=== PATIENT | female | born 1965 | race Caucasian/White ===

== ENCOUNTER 2022-06-16 09:30 | Outpatient (RCR) | payer BC, SELFPAY ==
--- NOTE | 2022-06-05 19:09 | ONC.NURNOTE ---
Authorization: User: Angie Alfaro Rojeliodonggeneva Date: 03/16/22 12:36 Type: Eligibility Determination Note... Request received from [facility] for authorization of Durvalumab [id number]. [place] primary [place]. Per Chance Durvalumab has been approved from 03/12/2022 through 03/20/2023. Ref #[id number]
[2022-06-11 11:31] LABS: Basophils Absolute Auto 0.04 K/uL (0.00-0.30); Basophils Percent Auto 0.4 % (0.0-3.0); Eosinophils Absolute Auto 0.21 K/uL (0.00-0.50); Eosinophils Percent Auto 2.3 % (0.0-7.0); Hematocrit 46.9 % (33.0-51.0); Hemoglobin* 15.6 gm/dL (12.0-16.0); Immature Granulocytes Abs Auto 0.03 K/uL (0.00-0.30); Lymphocytes Absolute Auto 3.31 K/uL (0.90-2.90); Lymphocytes Percent Auto 36.7 % (20-44); Mean Corpuscular HGB Conc 33 gm/dL (32-36); Mean Corpuscular Hemoglobin 32 pg (26-34); Mean Corpuscular Volume 95 fL (80-100); Monocytes Percent Auto 7.1 % (0.0-11.0); Neutrophils Absolute Auto 4.78 K/uL (1.7-7.0); Neutrophils Percent Auto 53.2 % (42.0-72.0); Platelet Count* 266 K/uL (140-440); RDW Coefficient of Variation % 11.8 % (11.5-15.5); Red Blood Count 4.92 m/uL (4.00-5.20); White Blood Count* 9.01 K/uL (4.50-11.00)
[2022-06-11 11:37] LABS: Slide Review Reflex No
[2022-06-11 12:02] LABS: Chloride* 102 mmol/L (96-114)
[2022-06-11 12:03] LABS: Potassium* 3.9 mmol/L (3.6-5.1); Sodium* 136 mmol/L (135-149)
[2022-06-11 12:05] LABS: Alanine Aminotransferase* 38 U/L (4-35); Alkaline Phosphatase* 92 U/L (40-150); Aspartate Amino Transferase* 32 U/L (12-35); Bilirubin Total* 0.5 mg/dL (0.1-1.5); Blood Urea Nitrogen* 9 mg/dL (7-30); Carbon Dioxide* 26 mmol/L (20-32); Creatinine* 0.7 mg/dL (0.5-1.5); Est. Creatinine Clearance* 84.01; Estimated Glomerular Filt Rate 101 ml/min; Glucose* 255 mg/dL (60-115); Total Protein* 7.4 g/dL (6.0-8.3)
[2022-06-11 12:06] LABS: Calcium* 8.8 mg/dL (8.4-10.6)
[2022-06-16 09:42] VITALS: BP 124/87; PULSE 96; RESP 20; TEMP 35.8; O2SAT 97
[2022-06-16] MEDS: DURVALUMAB 1,500 MG, TUBING PRIMARY 1 EACH, In-line 0.2 micron filter set 1 EACH in 0.9... 280 MG IVPB (10:16)
== END 2022-06-21 23:59 | disposition home or self-care (01) ==
LOC: CCIC 09:30
PROVIDERS: Visit Provider Internal Medicine Medical Oncology
DX: Z51.11 Encounter for antineoplastic chemotherapy (principal); C34.91 Malignant neoplasm of unspecified part of right bronchus or lung
CPT/HCPCS: 36415; 36591; 80053; 84443; 85025; 96413; 99212; 99214; J7050; J9173

== ENCOUNTER 2022-06-22 09:03 | Outpatient (CLI) | payer BC, SELFPAY ==
--- NOTE | 2022-06-22 09:00 | CRLHL7_ITS ---
For Patients: As a result of the Century Cures Act, medical imaging exams and procedure reports are released immediately into your electronic medical record. You may view this report before your referring provider. If you have questions, please contact your health care provider. Indication: Follow-up lung cancer Technique: Postcontrast CT chest. 75 cc Isovue 370 intravenous contrast. Please note that all CT scans at this facility use dose modulation, iterative reconstruction, and/or weight-based dosing when appropriate to reduce radiation dose to as low as reasonably achievable. Comparison: 02/27/2022 Findings: Near-complete resolution previously noted ground-glass densities in the right lower lobe. A few residual densities remain. Bronchovascular fullness of the right lower lobe bronchovascular tree again noted. Stable upper limits normal mediastinal and right hilar lymph nodes. Post treatment changes to the anterior right lung. No pneumothorax or pleural effusion. Post pneumonectomy changes to the right posterior lateral ribcage. Underlying COPD/emphysema. No aortic dissection or pulmonary embolism. No pleural or pericardial effusion. Diffuse hepatic steatosis. No fracture. Stable benign-appearing density within the T6 vertebral body. Impression: Improved appearance of the right lower lobe compared to the prior study. Similar fullness of the right lower lobe bronchovascular tree and similar upper limits normal right hilar and mediastinal lymph nodes. Unchanged appearance of post treatment changes to the right anterior lung. Please note that all CT scans at this facility use dose modulation, iterative reconstruction, and/or weight-based dosing when appropriate to reduce radiation dose to as low as reasonably achievable. Dictated by Nael Solares MD @ 06/22/2022 10:25:07 AM (Electronically Signed)
== END 2022-06-22 09:04 | disposition home or self-care (01) ==
LOC: CT 09:04
PROVIDERS: Visit Provider Nurse Practitioner Family
DX: C34.91 Malignant neoplasm of unspecified part of right bronchus or lung (principal)
CPT/HCPCS: 71260; Q9967

== ENCOUNTER 2022-09-15 11:59 | Outpatient (RCR) | payer BC, SELFPAY ==
--- NOTE | 2022-06-22 16:40 | ONC.NURNOTE ---
Patient called office asking for CT results from today, these were given to patient by nursing per Rosey Silva. Ok to let her know that looks great. Professor Of Practice discussed follow up with [employer], and she notes that patient would be due for follow up in about three months. Patient is leaving for [facility] 09/22/2022, so appointment was made for 09/17/2022. Patient will have labs done prior to this appointment, per note in [employer] - insurance is only covering scans every 6 months, so will wait on imaging.
[2022-09-15 09:57] VITALS: BP 135/90; PULSE 99; RESP 16; TEMP 36.1; O2SAT 96
[2022-09-15 10:15] LABS: Basophils Absolute Auto 0.03 K/uL (0.00-0.30); Basophils Percent Auto 0.4 % (0.0-3.0); Eosinophils Absolute Auto 0.17 K/uL (0.00-0.50); Eosinophils Percent Auto 2.3 % (0.0-7.0); Hematocrit 44.7 % (33.0-51.0); Hemoglobin* 15.1 gm/dL (12.0-16.0); Immature Granulocytes Abs Auto 0.04 K/uL (0.00-0.30); Lymphocytes Percent Auto 39.9 % (20-44); Mean Corpuscular HGB Conc 34 gm/dL (32-36); Mean Corpuscular Hemoglobin 32 pg (26-34); Mean Corpuscular Volume 95 fL (80-100); Monocytes Percent Auto 8.3 % (0.0-11.0); Neutrophils Absolute Auto 3.65 K/uL (1.7-7.0); Neutrophils Percent Auto 48.6 % (42.0-72.0); Platelet Count* 236 K/uL (140-440); RDW Coefficient of Variation % 11.8 % (11.5-15.5); Red Blood Count 4.69 m/uL (4.00-5.20); White Blood Count* 7.51 K/uL (4.50-11.00)
[2022-09-15 10:25] LABS: Slide Review Reflex No
[2022-09-15 10:29] LABS: Albumin* 4.1 g/dL (3.3-5.0); Chloride* 101 mmol/L (96-114); Potassium* 4.1 mmol/L (3.6-5.1); Sodium* 135 mmol/L (135-149)
[2022-09-15 10:31] LABS: Bilirubin Total* 0.5 mg/dL (0.1-1.5); Carbon Dioxide* 24 mmol/L (20-32); Creatinine* 0.7 mg/dL (0.5-1.5); Estimated Glomerular Filt Rate 101 ml/min
[2022-09-15 10:32] LABS: Alanine Aminotransferase* 35 U/L (4-35); Alkaline Phosphatase* 93 U/L (40-150); Aspartate Amino Transferase* 39 U/L (12-35); Blood Urea Nitrogen* 9 mg/dL (7-30); Glucose* 226 mg/dL (60-115); Total Protein* 7.2 g/dL (6.0-8.3)
[2022-09-16 08:38] LABS: Calcium* 9.1 mg/dL (8.4-10.6)
== END 2022-12-19 23:59 | disposition home or self-care (01) ==
LOC: CCIC 11:59
PROVIDERS: Clinical Nurse Specialist; Visit Provider Internal Medicine Medical Oncology
DX: C34.91 Malignant neoplasm of unspecified part of right bronchus or lung (principal); E03.9 Hypothyroidism, unspecified; E83.51 Hypocalcemia; Z72.0 Tobacco use
CPT/HCPCS: 36415; 80053; 84443; 85025; 99211; 99212; 99214

== ENCOUNTER 2023-03-04 11:06 | Outpatient (CLI) | payer BC, SELFPAY ==
--- NOTE | 2023-03-04 11:00 | CRLHL7_ITS ---
For Patients: As a result of the Century Cures Act, medical imaging exams and procedure reports are released immediately into your electronic medical record. You may view this report before your referring provider. If you have questions, please contact your health care provider. Indication: RECURRENT ADENOCARCINOMA OF RIGHT LUNG Technique: Post contrast CT chest. 75 cc Isovue 370 intravenous contrast. Please note that all CT scans at this facility use dose modulation, iterative reconstruction, and/or weight-based dosing when appropriate to reduce radiation dose to as low as reasonably achievable. Comparison: 06/22/2022 Findings: Stable benign subcentimeter cyst is present within the left hepatic lobe. The gallbladder is absent. Fatty infiltration of the liver noted. The spleen is unremarkable. Normal adrenal glands. No upper abdominal adenopathy. Similar appearance of the thyroid bed. No residual abscess. Atherosclerotic disease. The breast tissue appears normal. No axillary adenopathy. Stable subcentimeter right hilar and mediastinal lymph nodes. No aortic dissection or pulmonary embolism. Postoperative changes to the right ribcage. Stable benign sclerotic focus within the mid thoracic spine. No suspicious osseous findings. Mild emphysematous changes. Stable appearance of the right perihilar lung parenchyma and curvilinear scarring extending to the right anterolateral pleura. Impression: Stable exam. No significant change since the prior study. No new findings. Please note that all CT scans at this facility use dose modulation, iterative reconstruction, and/or weight-based dosing when appropriate to reduce radiation dose to as low as reasonably achievable. Dictated by Nael Solares MD @ 03/05/2023 1:03:50 PM (Electronically Signed)
== END 2023-03-04 11:07 | disposition home or self-care (01) ==
LOC: CT 11:07
PROVIDERS: Visit Provider Clinical Nurse Specialist
DX: C34.91 Malignant neoplasm of unspecified part of right bronchus or lung (principal); Z72.0 Tobacco use
CPT/HCPCS: 71260; Q9967

== ENCOUNTER 2023-03-09 15:00 | Outpatient (RCR) | payer BC, SELFPAY ==
[2023-03-04] MEDS: ALTEPLASE 2 MG INJ IVF (11:03)
[2023-03-04 11:12] LABS: Basophils Absolute Auto 0.03 K/uL (0.00-0.30); Basophils Percent Auto 0.3 % (0.0-3.0); Eosinophils Absolute Auto 0.16 K/uL (0.00-0.50); Eosinophils Percent Auto 1.7 % (0.0-7.0); Hematocrit 51.1 % (33.0-51.0); Hemoglobin* 17.1 gm/dL (12.0-16.0); Immature Granulocytes Abs Auto 0.02 K/uL (0.00-0.30); Immature Granulocytes Pct Auto 0.2 %; Lymphocytes Absolute Auto 3.91 K/uL (0.90-2.90); Lymphocytes Percent Auto 41.4 % (20-44); Mean Corpuscular HGB Conc 34 gm/dL (32-36); Mean Corpuscular Hemoglobin 32 pg (26-34); Mean Corpuscular Volume 96 fL (80-100); Monocytes Percent Auto 7.2 % (0.0-11.0); Neutrophils Absolute Auto 4.64 K/uL (1.7-7.0); Neutrophils Percent Auto 49.2 % (42.0-72.0); Platelet Count* 299 K/uL (140-440); RDW Coefficient of Variation % 12.2 % (11.5-15.5); Red Blood Count 5.34 m/uL (4.00-5.20); White Blood Count* 9.44 K/uL (4.50-11.00)
[2023-03-04 11:15] LABS: Slide Review Reflex No
[2023-03-04 11:20] LABS: Albumin* 4.4 g/dL (3.3-5.0)
[2023-03-04 11:21] LABS: Chloride* 103 mmol/L (96-114); Potassium* 4.9 mmol/L (3.6-5.1); Sodium* 136 mmol/L (135-149)
[2023-03-04 11:23] LABS: Aspartate Amino Transferase* 27 U/L (12-35); Bilirubin Total* 0.8 mg/dL (0.1-1.5); Carbon Dioxide* 27 mmol/L (20-32); Creatinine* 0.7 mg/dL (0.5-1.5); Estimated Glomerular Filt Rate 101 ml/min
[2023-03-04 11:24] LABS: Alanine Aminotransferase* 29 U/L (4-35); Alkaline Phosphatase* 67 U/L (40-150); Blood Urea Nitrogen* 9 mg/dL (7-30); Calcium* 9.2 mg/dL (8.4-10.6); Glucose* 175 mg/dL (60-115)
== END 2023-08-23 23:59 | disposition home or self-care (01) ==
LOC: CCIC 15:00
PROVIDERS: Clinical Nurse Specialist; Visit Provider Internal Medicine Hematology & Oncology
DX: C34.91 Malignant neoplasm of unspecified part of right bronchus or lung (principal); C73 Malignant neoplasm of thyroid gland; E03.9 Hypothyroidism, unspecified; Z72.0 Tobacco use; Z63.8 Other specified problems related to primary support group
CPT/HCPCS: 36415; 80053; 84443; 85025; 96376; 99211; 99212; 99215; J2997

== ENCOUNTER 2023-12-30 11:30 | Outpatient (RCR) | payer BC, SELFPAY ==
--- NOTE | 2023-09-20 11:35 | ONC.NURNOTE ---
PET approved 09/03/23-10/18/23. #[id number].
--- NOTE | 2023-10-04 13:24 | PC.NURSE ---
Called pt today to check in. Caroline is doing well s/p lumpectomy. Caroline is meeting with a medical oncologist in [place] on of this week. She is apprehensive about being told she will need chemotherapy. RN listened and provided support. Caroline would like to follow-up with Dr. Otto per providers recommendations (November,), however pt won't be back to [place] until early December. RN states this is ok to see her then. Caroline would like her CT scan scheduled on 12/29/2023 and MD appt on 12/30/2023. RN noted that Dr. Otto's schedule is blocked in December as it is too far in advance. Will pencil pt in for an appt that day but will not call her to confirm. Pt will call [facility] in November, to schedule officially. Of note, CT scan is not yet scheduled.
--- NOTE | 2023-12-15 12:43 | ONC.NURNOTE ---
Patient called to cancel Feb CT Scan and Dr Otto follow up she is currently receiving chemotherapy in [place] and to travel to [place] during treatment is not going to work Caroline will schedule her CT Scan for Dec at the local oncology office rescheduled for February with Dr Clarita Velazquez has all her treatment records and medical consult notes to bring back to [place]
== END 2024-02-29 23:59 | disposition home or self-care (01) ==
LOC: CCIC 11:30
PROVIDERS: PCP Family Medicine; Visit Provider Internal Medicine Hematology & Oncology
DX: C50.912 Malignant neoplasm of unspecified site of left female breast (principal)
CPT/HCPCS: 99212; 99214; 99215

== ENCOUNTER 2024-03-28 09:09 | Outpatient (CLI) | payer BC, SELFPAY ==
--- OUTSIDE RECORDS SUMMARY | 2024-03-28 09:12 | XMS_ITS | Referral Summary ---
Author Name Unknown Organization [facility] Address [address] [place] [address] Care Team Providers Care Dredge Master Name Role Phone Sea Jha M.D. Primary Care P marcelinoder Source Comments Patient records contain information from all sites at [facility]. For routine questions regarding patient records, call [phone] during business hours, M-F 8:00 AM - 5:00 PM Central Time. Record requests for emergency care only can be directed to [phone] at any time.[facility] Encounters Date Type Department Care Team Description 03/15/2024 Clinical Communication Department of Family Medicine, [facility], in [place], [place] [address] [place] [phone] Sea Jha M.B.B.S., M.D. Med Question (Med increase milligrams) 03/15/2024 8:53 AM CDT - 03/15/2024 3:08 PM CDT Hospital Encounter Department of Radiation Oncology in [place], [place] [address] [place] [id number] Judy Aguilar M.D. Malignant Neoplasm Of Breast Female Left (HCC) (Primary Dx) 03/11/2024 2:02 PM CDT - 03/11/2024 6:06 PM CDT Emergency [facility] [address] [place] [phone] Abdominal Pain (Primary Dx) Discharge Disposition: Home or Self Care 03/03/2024 10:30 AM CDT Office Visit Department of Family Medicine, [facility], in [address] [phone] Sea Jha M.B.B.S., M.D. Diabetes Mellitus Type 2 Hyperglycemia (HCC) (Primary Dx); Hyperlipidemia Mixed; Hypothyroidism Acquired; Malignant Neoplasm Of Lung Middle Lobe Or Bronchus (HCC); Nicotine Dependence Cigarettes; Obesity Body Mass Index 30-39.9 Adult; Neuropathy Peripheral 03/01/2024 9:20 AM CDT - 03/01/2024 11:59 PM CDT Hospital Encounter Department of Laboratory Medicine in [address] [phone] Sea Jha M.B.B.S., M.D. Diabetes Mellitus Type 2 Hyperglycemia (HCC); Hyperlipidemia Mixed; Hypothyroidism Acquired Discharge Disposition: Home or Self Care 12/30/2023 Refill Department of Family Medicine, [facility], in [address] [phone] Tammy Medina M.D. Med Refill from Last 3 Months Allergies Active Allergy Reactions Criticality Noted Date Comments Oxycodone GI intolerance Low 10/12/2019 Nausea/vomiting Has tolerated hydromorphone Medications Medication Sig Dispensed Refills Start Date End Date Status acetaminophen (TYLENOL) 500 mg tablet Take 2 tablets (1,000 mg total) by mouth every 6 (six) hours as needed for pain. 100 tablet 11 09/17/20 22 Active flash glucose scanning reader (FreeStyle Veronika 14 Day Cassandra) miscIndications:D iabetes Mellitus Type 2 Hyperglycemia (HCC) USE WITH VERONIKA SENSOR 1 each 09/17/20 22 Active dulaglutide (Trulicity) 3 mg/0.5 mL injectionIndicati ons:Diabetes Mellitus Type 2 Hyperglycemia (HCC) Inject 0.75 mL (4.5 mg total) under the skin every 7 (seven) days. 6 mL 3 07/30/20 23 Active pravastatin (PRAVACHOL) 40 mg tabletIndications :Hyperlipidemia Mixed Take 1 tablet (40 mg total) by mouth daily. 90 tablet 3 09/01/20 23 Active flash glucose sensor (FREESTYLE VERONIKA) kitIndications:Di abetes Mellitus Type 2 Hyperglycemia (HCC) Change sensor every 14 days. 6 kit 3 11/24/19 24 Active levothyroxine (SYNTHROID, LEVOTHROID) 25 mcg tabletIndications :Hypothyroidism Acquired Take 25 mcg on Wednesday and Wednesday. 90 tablet 3 03/03/20 24 Active levothyroxine (SYNTHROID, LEVOTHROID) 150 mcg tabletIndications :Hypothyroidism Acquired Take levothyroxine 150 mcg Wednesday through Wednesday. 90 tablet 3 03/03/20 24 Active pregabalin (LYRICA) 25 mg capsuleIndication s:Neuropathy Peripheral Take 1 capsule (25 mg total) by mouth 2 (two) times a day. 30 capsule 2 03/03/20 24 Active pregabalin (LYRICA) 50 mg capsule Take 1 capsule (50 mg total) by mouth 2 (two) times a day. 60 capsule 11 03/15/20 24 025 Active levothyroxine (SYNTHROID, LEVOTHROID) 150 mcg tablet Take levothyroxine 150 mcg Wednesday through Wednesday. 90 tablet 3 04/01/20 23 024 Discontinued(Re order) levothyroxine (SYNTHROID, LEVOTHROID) 25 mcg tablet Take 25 mcg on Wednesday and Wednesday. 90 tablet 3 04/01/20 23 024 Discontinued(Re order) albuterol (Ventolin HFA) 90 mcg/actuation inhalerIndication s:Bronchitis Chronic (HCC) Inhale 2 puffs every 4 (four) hours as needed for wheezing or shortness of breath. 18 g 07/30/20 23 024 Discontinued(Th erapy completed) glimepiride (AMARYL) 4 mg tabletIndications :Diabetes Mellitus Type 2 Hyperglycemia (HCC) Take 1 tablet (4 mg total) by mouth daily. 90 tablet 3 09/01/20 23 024 Discontinued(Th erapy completed) gabapentin (NEURONTIN) 300 mg capsule Take 300 mg by mouth 3 (three) times a day. 024 Discontinued Active Problems Problem Noted Date Diagnosed Date Malignant Neoplasm Of Breast Female Left 024 Cancer Staging:Pathologic stage from 09/08/2023:Stage IB(pT1c, pN0(sn), cM0, G3, ER-, KS-, HER2-) - Unsigned Obesity Body Mass Index 30-39.9 Adult 02/24/2022 Lesion Eyelid 03/17/2021 Malignant Neoplasm Of Unspec ified Part Of Lung Laterality Unknown 03/11/2021 Cancer Staging:Clinical: Unsigned Pathologic stage from 03/16/2021: pT2, pN0, cM0 - Unsigned Hypothyroidism Acquired 04/09/2020 Malignant Neoplasm Of Lung Middle Lobe Or Bronch us 02/05/2020 Diabetes Mellitus Type 2 Hyperglycemia 9 Nicotine Dependence Cigarettes 04/11/2019 Hyperlipidemia Mixed 06/06/2012 Resolved Problems Problem Noted Date Diagnosed Date Resolved Date Thyroiditis Alice's 04/25/202110/23 Nodule Thyroid 04/24/2021 11/10/2021 Overview: Added automatically from request for surgery [id number] Pain Shoulder Left 04/16/2020 Pulmonary Nodule Computed To mography Indeterminate 10/12/2019 02/05/2020 Nodule Pulmonary 09/25/2019 02/05/2020 Overview: Added automatically from request for surgery [id number] Mass Adrenal 09/22/2019 04/09/2020 Overview: Added automatically from request for surgery [id number] Gastroesophageal Reflux Dise ase With Esophagitis 08/14/2019 08/14/2019 Nodule Pulmonary Solitary 08/14/2019 Overview: Per xray Jul 2019 / Right CT Chest Aug 17, 2019 suspicious nodule Right Depression Major Recurrent Mild 06/06/2012 08/14/2019 Overview: Major depressive disorder, recurrent episode, Mild Immunizations Name Administration Dates Next Due Influenza TIV (IM) 08/18/2013 Influenza, Seasonal, Injectable 08/18/2013 PCV13 08/22/2019 PPSV23(Discontinued) 04/09/2020 Tdap 05/12/2022, 2,02/11/2012, 008 influenza vaccine quad (FLUZONE/FLUARIX) (6 months and older)(PF) 09/10/2022,11/10/2021,08/14/2019, 017,09/25/2014 Social History Tobacco Use Types Packs/Day Years Used Date Smoking Tobacco: Every Day Cigarettes 0.5 41.3 Started: 11/30/1982 Smokeless Tobacco: Never Tobacco Cessation:Ready to Q uit: No; Counseling Given: Yes Alcohol Use Standard Drinks/Week Comments Not Currently 0 (1 standard drink = 0.6 oz pur e alcohol) Humiliation, Afraid, Rape, and Kick questionnair e Answer Date Recorded Within the last year, have y ou been afraid of your partner or ex-partner? No 11/10/2021 Within the last year, have y ou been humiliated or emotionally abused in other ways by your partner or ex-partner? No Within the last year, have y ou been kicked, hit, slapped, or otherwise physically hurt by your partner or ex-partner? No 11/10/2021 Within the last year, have y ou been raped or forced to have any kind of sexual activity by your partner or ex-partner? No 11/10/2021 Social Connection and Isolat ion Panel [NHANES] Answer Date Recorded In a typical week, how many times do you talk on the phone with family, friends, or neighbors? More than three times a week 11/10/2021 How often do you get togethe r with friends or relatives? Once a week 11/10/2021 How often do you attend chur or baptism services? More than 4 times per year 11/10/2021 Do you belong to any clubs o r organizations such as jainism groups, unions, fraternal or athletic groups, or school groups? Yes 11/10/2021 How often do you attend meet ings of the clubs or organizations you belong to? More than 4 times per year 11/10/2021 Are you , , di vorced, , never , or living with a partner? 11/10/2021 AUDIT-C Answer Date Recorded Q1: How often do you have a drink containing alc ohol? Never 11/10/2021 Average Number of Drinks Not on file 12/20/2 021 Frequency of Binge Drinking Not on file 10/23 Overall Financial Resource Strain (CARDIA) Answe r Date Recorded How hard is it for you to pa y for the very basics like food, housing, medical care, and heating? Not hard at all 11/10/2021 PHQ-2 Answer Date Recorded PHQ-2 Score 0 03/03/2024 [facility] - Occupational Stress Questionnaire Answer Date Recorded Do you feel stress - tense, restless, nervous, or anxious, or unable to sleep at night because your mind is troubled all the time - these days? Not at all 11/10/2021 Exercise Vital Sign Answer Date Recorde d On average, how many days pe r week do you engage in moderate to strenuous exercise (like a brisk walk)? 0 days 11/10/2021 On average, how many minutes do you engage in exercise at this level? 0 min 11/10/2021 Hunger Vital Sign Answer Date Recorded Within the past 12 months, y ou worried that your food would run out before you got the money to buy more. Never true 11/10/20 21 Within the past 12 months, t he food you bought just didn't last and you didn't have money to get more. Never true 11/10/2021 PRAPARE - Transportation Answer Date Re corded In the past 12 months, has l ack of transportation kept you from medical appointments or from getting medications? No 10/23 In the past 12 months, has l ack of transportation kept you from meetings, work, or from getting things needed for daily living? No 11/10/2021 Housing Stability Vital Sign Answer Thierry e Recorded In the last 12 months, was t here a time when you were not able to pay the mortgage or rent on time? No 11/10/2021 In the last 12 months, how many places have you lived? 1 11/10/2021 In the last 12 months, was t here a time when you did not have a steady place to sleep or slept in a fdc (including now)? No 11/10/2021 Nutrition Answer Date Recorded Nutrition: EVOO Fat Source No 11/10 On average, how many serving s of fruits and vegetables do you eat per day (serving size is equal to 1 cup or approximately the size of a tennis ball)? 2-3 11/10/2021 Dental Answer Date Recorded Dental: Regular Dentist No 11/25/19 Employment Answer Date Recorded Employment status Employed and actively working without restrictions 11/10/2021 Education Answer Date Recorded What is the highest level of school you have completed or the highest degree you have received? GED or equivalent Sex and Gender Information Value Date Recorded Sex Assigned at Female 11/06/2021 3:47 PM SET UP MECHANIC AUTOMATIC LINE Gender Identity Female 04/07/2020 3:36 PM CDT Sexual Orientation Straight 04/07/2020 3: 36 PM CDT Last Filed Vital Signs Vital Sign Reading Time Taken Comments Blood Pressure 130/82 03/15/2024 9:14 AM CDT Pulse 90 03/15/2024 9:14 AM CDT Temperature 35.9 ??C (96.6 ??F) 03/15/2024 9:14 AM CD T Respiratory Rate 16 03/03/2024 10:2 7 AM CDT Oxygen Saturation 96% 09/01/2023 10: 53 AM CDT Inhaled Oxygen Concentration - - Weight 84 kg (185 lb 3 oz) 03/15/2024 9:14 AM CD T Height 169 cm (5' 6.54) 03/03/2024 10: 27 AM CDT with shoes on Body Mass Index 29.41 03/03/2024 10:27 AM CDT Plan of Treatment Not on file Medical Devices Implanted Type Area Bowl Topper Device Identifier Shelf Expiration Date Model / Serial / Lot Implantable Port Implantable Port Chest Procedures Procedure Name Priority Date/Time Associated Diagnosis Comments CT ABDOMEN PELVIS WITH IV CONTRAST RAD - Semiurgent (Fast; most ED patients; some inpatients) 03/11/2024 4:27 PM CDT EXTI BASIC METABOLIC PANEL, S/P Routine 03/11/2024 2:36 PM CDT LIPID PANEL, S Routine 03/01/2024 9:32 AM CDT Hyperlipidemia Mixed THYROID-STIMULATING HORMONE-SENSITIVE (S-TSH) Routine 03/01/2024 9:31 AM CDT Hypothyroidism Acquired HEMOGLOBIN A1C, B Routine 03/01/2024 9:3 1 AM CDT Diabetes Mellitus Type 2 Hyperglycemia (HCC) OUTSIDE CT BODY Routine 12/29/2023 3:45 PM SET UP MECHANIC AUTOMATIC LINE BI BREAST DIAGNOSTIC BILATERAL WITH TOMOSYNTHESIS RAD - Routine (most inpatients and all outpatients) 08/18/2023 10:18 AM CDT Lump In Left Breast Subareolar ALBUMIN, RANDOM, U Routine 07/29/2023 9: 10 AM CDT Diabetes Mellitus Type 2 Hyperglycemia (HCC) COLONOSCOPY Routine 07/02/2017 from Last 3 Months or Most Recently Relevant to Health Maintenance Results * CT Abdomen Pelvis with IV Contrast (03/11/2024 4:27 PM CDT) Anatomical Region Laterality Modality Abdomen, Pelvis, Abdominal R ST LOS, Abdominal ARZ LOS, Abdominal FLA LOS N/A Computed Tomography 03/11/2024 4:22 PM CDT Impressions 03/11/2024 4:40 PM CDT Moderate diffuse infectious or inflammatory enteritis involving mid to distal ileum in the lower abdomen and pelvis, with adjacent mesenteric edema. No bowel obstruction. Narrative 03/11/2024 4:40 PM CDT EXAM: CT ABDOMEN PELVIS WITH IV CONTRAST COMPARISON: CT abdomen and pelvis 05/29/2021 FINDINGS: The liver is unremarkable. Small subcapsular cyst or minimal fluid at the lateral margin of the inferior right hepatic tip, slightly greater than on prior CT. Stable tiny cyst lateral segment left hepatic lobe. Cholecystectomy. No new biliary dilatation. The spleen is normal. Pancreas is normal. Normal adrenal glands. Kidneys, ureters and bladder are unremarkable. Minimal free fluid in the pelvis. Hysterectomy. Moderate diffuse wall thickening of multiple loops of mid to distal ileum in the abdomen and pelvis, compatible with infectious or inflammatory enteritis, with mild adjacent mesenteric edema or inflammation. Trace mesenteric fluid in the right mid and lower abdomen. No bowel obstruction. Normal appendix. Normal colon caliber. Mild diverticulosis in the sigmoid colon. 1 cm umbilical hernia containing fat. Procedure Note Piter Dodge M.D. - 03/11/2024 EXAM: CT ABDOMEN PELVIS WITH IV CONTRAST COMPARISON: CT abdomen and pelvis 05/29/2021 FINDINGS: The liver is unremarkable. Small subcapsular cyst or minimalfluid at the lateral margin of the inferior right hepatic tip, slightlygreater than on prior CT. Stable tiny cyst lateral segment left hepaticlobe. Cholecystectomy. No new biliary dilatation. The spleen is normal. Pancreas is normal. Normal adrenalglands. Kidneys, ureters and bladder are unremarkable. Minimal free fluidin the pelvis. Hysterectomy. Moderate diffuse wall thickening of multiple loops of mid to distal ileumin the abdomen and pelvis, compatible with infectious or inflammatoryenteritis, with mild adjacent mesenteric edema or inflammation. Tracemesenteric fluid in the right mid and lower abdomen. No bowel obstruction. Normal appendix. Normal coloncaliber. Mild diverticulosis in the sigmoid colon. 1 cm umbilical herniacontaining fat. IMPRESSION: Moderate diffuse infectious or inflammatory enteritis involving mid todistal ileum in the lower abdomen and pelvis, with adjacent mesentericedema. No bowel obstruction. Skinny Hyatt M.D., M.P.H. IMG CT PROCEDURES * (ABNORMAL) Lipid Panel (03/01/2024 9:32 AM CDT) Triglycerides 348(H) mg/dL 03/01/2024 2:05 PM CDT [facility] Comment: ----REFERENCE VALUE---- Normal: <150 mg/dL Borderline High: 150-199 mg/dL High: 200-499 mg/dL Very High: > or =500 mg/dL Cholesterol, Total 291(H) mg/dL 2023 2:05 PM CDT [facility] Comment: ----REFERENCE VALUE---- Desirable: < 200 mg/dL Borderline High: 200 - 239 mg/dL High: > or = 240 mg/dL Cholesterol, LDL, Calculated 188(H) mg/dL 03/01/2024 2:05 PM CDT [facility] Comment: ----REFERENCE VALUE---- Desirable: <100 mg/dL Above Desirable: 100-129 mg/dL Borderline High: 130-159 mg/dL High: 160-189 mg/dL Very High: >=190 mg/dL ----ADDITIONAL INFORMATION---- LDL cholesterol calculated using the Pepper/NIH equation. Cholesterol, HDL 34(L) >=50 mg/dL 03/01/20 2:05 PM CDT [facility] Cholesterol, Non-HDL, Calculated 257(H) mg/dL 03/01/2024 2:05 PM CDT [facility] Comment: ----REFERENCE VALUE---- Desirable: <130 mg/dL Above Desirable: 130-159 mg/dL Borderline High: 160-189 mg/dL High: 190-219 mg/dL Very High: > or =220 mg/dL Fasting (8 HR or more) No 03/01/2024 1:32 PM CDT [facility] Blood (Blood, Venous) 03/01/2024 9:32 AM CDT 03/01/2024 1:32 PM CDT Sea Hurd M.D. LAB BLO JOSE ADD-ON Performing Organization Address [facility] Co de Phone Number [facility] [address] [place] [address], [facility] in [place] [address] [place] [phone] * S-TSH (Thyroid-Stimulating Hormone - Sensitive) (03/01/2024 9:31 AM CDT) TSH, Sensitive 3.2 0.3 - 4.2 mIU/L 03/01/2024 2:22 PM CDT [facility] Blood (Blood, Venous) 03/01/2024 9:31 AM CDT 03/01/2024 1:32 PM CDT Sea Hurd M.D. LAB BLO OD ADD-ON Performing Organization Address [facility] Co de Phone Number [facility] [address] [address], [facility] in [place] [address] [place] [address] * (ABNORMAL) Hemoglobin A1c (03/01/2024 9:31 AM CDT) Hemoglobin A1c, B 7.3(H) 4.2 - 5.6 % 03/01/2024 2:28 PM CDT [facility] Comment: Hemoglobin A1c values greater than or equal to 6.5 percent are diagnostic for diabetes mellitus. ??Diagnosis should be confirmed by repeat testing. ??In diabetic patients, HbA1c goals should be discussed with healthcare provider. Blood (Blood, Venous) 03/01/2024 9:31 AM CDT 03/01/2024 1:32 PM CDT Sea Hurd M.D. LAB BLO OD ADD-ON Performing Organization Address City/[facility]/ZIP Co de Phone Number [facility] [address] [place] [address], [facility] in [place] [address] [place] [address] * Thorax CHEST_WO (Adult)-Outside CT Body (12/29/2023 3:45 PM SET UP MECHANIC AUTOMATIC LINE) Narrative [facility] - 03/08/2024 9:43 AM CDT This order has been created and auto-finalized to support the import of outside images. If available, original interpretation can be found on the Media Tab in Chart Review, in Document Viewer, or as an image in QREADS. If a re-interpretation or overread is required please follow defined workflow. ?? Provider Not In System IMG CT PROCEDURES [facility] NA * (ABNORMAL) BI Breast Diagnostic Bilateral with Tomosynthesis (08/18/2023 10:18 AM CDT) Anatomical Region Laterality Modality Breast, Breast Imaging RST L OS, Breast Imaging ARZ LOS, Breast Imaging FLA LOS Bilateral Mammography 08/18/2023 10:3 3 AM CDT Impressions 08/18/2023 11:38 AM CDT 1.7 cm spiculated left breast mass at approximately 12:00. RECOMMENDATION: ??Biopsy Ultrasound-guided biopsy. ASSESSMENT: ??BI-RADS: 4: Suspicious. Narrative 08/18/2023 11:38 AM CDT EXAM: ??BI BREAST DIAGNOSTIC BILATERAL WITH TOMOSYNTHESIS, BI ULTRASOUND BREAST FOCUSED LEFT INDICATION: ??Palpable lump COMPARISON: ??Prior exam(s) were available and reviewed for comparison. DENSITY: ??c. The breast(s) are heterogeneously dense, which may obscure small masses. FINDINGS: ?? Mammogram: In the left breast at the patient's palpable area of concern at approximately 12:00 there is a spiculated irregular 1.3 x 1.7 cm mass. No suspicious findings in the right breast. Ultrasound: In the left breast at 12:00 approximately 5 cm from the nipple there is a hypoechoic 1.3 x 1.4 x 1.1 cm oval mass with nonparallel orientation and posterior shadowing. Visualized left axillary lymph nodes are within normal limits. Procedure Note Suleman Headley M.D. - 08/18/2023 EXAM: BI BREAST DIAGNOSTIC BILATERAL WITH TOMOSYNTHESIS, BI ULTRASOUNDBREAST FOCUSED LEFT INDICATION: Palpable lump COMPARISON: Prior exam(s) were available and reviewed for comparison. DENSITY: c. The breast(s) are heterogeneously dense, which may obscuresmall masses. FINDINGS: Mammogram: In the left breast at the patient's palpable area of concern atapproximately 12:00 there is a spiculated irregular 1.3 x 1.7 cm mass. No suspicious findings in theright breast. Ultrasound: In the left breast at 12:00 approximately 5 cm from the nipplethere is a hypoechoic 1.3 x 1.4 x 1.1 cm oval mass with nonparallel orientation and posteriorshadowing. Visualized left axillary lymph nodes are within normal limits. IMPRESSION: 1.7 cm spiculated left breast mass at approximately 12:00. RECOMMENDATION: Biopsy Ultrasound-guided biopsy. ASSESSMENT: BI-RADS: 4: Suspicious. Sea Hurd, M.D. IMG BI PROCEDURES * Albumin, Random, Urine (07/29/2023 9:10 AM CDT) Microalbumin 15.0 mg/L 07/29/2023 11:57 AM CDT [facility] Creatinine 219 mg/dL 07/29/2023 11:57 AM CDT [facility] Albumin/Creatinin e Ratio 7 <25 mg/g 07/29/2023 11:57 AM CDT [facility] Urine (Urine, Midstream) 07/29/2023 9:10 AM CDT 07/29/2023 11:04 AM CDT Sea Hurd M.D. LAB URI NE ORDERABLES [facility] [address] [place] [address], [facility] in [place] [address] [place] [address] * Colonoscopy (07/02/2017) EXT Colonoscopy Abnormal - See Scanned Report for Details Normal - See Scanned Report for Details Comment:See care everywhere [facility] surgical history, repeat 3 years Historical Provider GI PROCEDURE ORDERAB LES from Last 3 Months or Most Recently Relevant to Health Maintenance Advance Directives For more information, please contact: [phone] * Full Code (Latest Code Status on File) Date Activated Date Inactivated Comments 05/19/2021 6:52 AM 05/19/2021 3:27 PM Question Answer Comments Full Code: Not Discussed Due to: Patient not available * Full Code Date Activated Date Inactivated Comments 10/12/2019 4:38 PM 10/15/2019 4:39 PM Question Answer Comments Full Code: Not Discussed Due to: Patient not available * Full Code Date Activated Date Inactivated Comments 10/12/2019 5:59 AM 10/12/2019 4:38 PM Question Answer Comments Full Code: Discussed * Full Code Date Activated Date Inactivated Comments 10/12/2019 5:59 AM 10/12/2019 5:59 AM Question Answer Comments Full Code: Discussed * Full Code Date Activated Date Inactivated Comments 09/28/2019 5:44 PM 09/29/2019 1:57 PM Question Answer Comments Full Code: Not Discussed Due to: Patient not available Care Teams Dredge Master Relationship Specialty Start Date End Date Sea Jha M.B.BYaniraSYanira, MCelina. [address] [place] [id number] PCP - General Family Medicine 06/03/23
--- OUTSIDE RECORDS SUMMARY | 2024-03-28 09:12 | XMS_ITS ---
Author Name Unknown Organization [facility] Address [address] [place] [address] Care Team Providers Care Extermination Inspector Name Role Phone Sea Jha M.D. Primary Care P rovider Active Problems Problem Noted Date Diagnosed Date Malignant Neoplasm Of Breast Female Left 024 Cancer Staging:Pathologic stage from 09/08/2023:Stage IB(pT1c, pN0(sn), cM0, G3, ER-, [place]-, HER2-) - Unsigned Obesity Body Mass Index 30-39.9 Adult 02/24/2022 Lesion Eyelid 03/17/2021 Malignant Neoplasm Of Unspec ified Part Of Lung Laterality Unknown 03/11/2021 Cancer Staging:Clinical: Unsigned Pathologic stage from 03/16/2021: pT2, pN0, cM0 - Unsigned Hypothyroidism Acquired 04/09/2020 Malignant Neoplasm Of Lung Middle Lobe Or Bronch us 02/05/2020 Diabetes Mellitus Type 2 Hyperglycemia 9 Nicotine Dependence Cigarettes 04/11/2019 Hyperlipidemia Mixed 06/06/2012 Current Oncology Plans No current plan information found. Past Plans No past plan information found. Radiation Treatments * Plan Last Treated On Elapsed Days Fractions Treated Prescribed Fraction Dose Prescribed Total Dose [id number] 04/29/2021 43 30 of 30 200 cGy 6,000 cG y Reference Point Last Treated On Elapsed Days Session Dose Total Dose [id number] 04/29/2021 43 200 cGy 6,000 cGy Lifetime Dose Tracking * Chemical Lifetime Dose Automatic Entry Manual Entr y Radiation 2 mGy 2 mGy 0 mGy Fluoro Time 0.133 minutes 0.133 minutes 0 minutes Resolved Problems Problem Noted Date Diagnosed Date Resolved Date Thyroiditis Alice's 04/25/202110/23 Nodule Thyroid 04/24/2021 11/10/2021 Overview: Added automatically from request for surgery [id number] Pain Shoulder Left 04/16/2020 1 Pulmonary Nodule Computed To mography Indeterminate 10/12/2019 02/05/2020 Nodule Pulmonary 09/25/2019 02/05/2020 Overview: Added automatically from request for surgery [id number] Mass Adrenal 09/22/2019 04/09/2020 Overview: Added automatically from request for surgery [id number] Gastroesophageal Reflux Dise ase With Esophagitis 08/14/2019 08/14/2019 Nodule Pulmonary Solitary 08/14/2019 Overview: Per xray Jul 2019 / Right CT Chest Aug 17, 2019 suspicious nodule Right Depression Major Recurrent Mild 06/06/2012 08/14/2019 Overview: Major depressive disorder, recurrent episode, Mild
--- OUTSIDE RECORDS SUMMARY | 2024-03-28 09:12 | XMS_ITS | Encounter Summary ---
Author Name Unknown Organization [facility] Address [address] [place] [address] Care Team Providers Care Admissions Coordinator Name Role Phone Sea Jha M.D. Primary Care P elio Reason for Visit * Reason Comments Abdominal Pain Encounter Details Date Type Department Care Team (Late st Contact Info) Description 03/11/2024 2:02 PM CDT - 03/11/2024 6:06 PM CDT Emergency [facility] [address] [place] [address] Abdominal Pain (Primary Dx) Discharge Disposition: Home or Self Care Social History Tobacco Use Types Packs/Day Years Used Date Smoking Tobacco: Every Day Cigarettes 0.5 41.3 Started: 11/30/1982 Smokeless Tobacco: Never Alcohol Use Standard Drinks/Week Comments Not Currently [...] 11/10/2021 How often do you attend chur ch or rastafari services? More than 4 times per year 11/10/2021 Do you belong to any clubs o r organizations such as alevism groups, unions, fraternal or athletic groups, or [...] Average Number of Drinks Not on file 021 Frequency of Binge Drinking Not on file 10/23 Overall Financial Resource Strain (CARDIA) Answe r Date Recorded How hard is it for you to pa y for the very basics like food, housing, medical care, and heating? Not hard at all 11/10/2021 PHQ-2 Answer Date Recorded PHQ-2 Score 0 03/03/2024 [facility] - Occupational Stress Questionnaire Answer Date Recorded [...] place to sleep or slept in a group home (including now)? No 11/10/2021 Nutrition Answer Date Recorded Nutrition: EVOO Fat Source No 11/10 On average, how many serving s of fruits and vegetables do you eat per day (serving size is equal to 1 cup or approximately the size of a tennis ball)? 2-3 11/10/2021 Dental Answer Date Recorded Dental: Regular Dentist No 11/25/19 23 Employment Answer Date Recorded Employment status Employed and actively working without restrictions 11/10/2021 Education Answer Date Recorded What is the highest level of school you have completed or the highest degree you have received? GED or equivalent Sex and Gender Information Value Date Recorded Sex Assigned at Female 11/06/2021 3:47 PM DAIRY EQUIPMENT SPECIALIST Gender Identity Female 04/07/2020 3:36 PM CDT Sexual Orientation Straight 04/07/2020 3: 36 PM CDT documented as of this encounter Medications at Time of Discharge Medication Sig Dispensed Refills Start Date End Date acetaminophen (TYLENOL) 500 mg tablet Take 2 tablets (1,000 mg total) by mouth every 6 (six) hours as needed for pain. 100 tablet 11 09/17/2022 dulaglutide (Trulicity) 3 mg/0.5 mL injectionIndications:D iabetes Mellitus Type 2 Hyperglycemia (HCC) Inject 0.75 mL (4.5 mg total) under the skin every 7 (seven) days. 6 mL 3 07/30/2023 flash glucose scanning reader (FreeStyle Veronika 14 Day [place]) miscIndications:Diabet es Mellitus Type 2 Hyperglycemia (HCC) USE WITH VERONIKA SENSOR 1 each 09/17/2022 flash glucose sensor (FREESTYLE VERONIKA) kitIndications:Diabete s Mellitus Type 2 Hyperglycemia (HCC) Change sensor every 14 days. 6 kit 3 11/24/2023 levothyroxine (SYNTHROID, LEVOTHROID) 150 mcg tabletIndications:Hypo thyroidism Acquired Take levothyroxine 150 mcg Wednesday through Wednesday. 90 tablet 3 03/03/2024 levothyroxine (SYNTHROID, LEVOTHROID) 25 mcg tabletIndications:Hypo thyroidism Acquired Take 25 mcg on Wednesday and Wednesday. 90 tablet 3 03/03/2024 pravastatin (PRAVACHOL) 40 mg tabletIndications:Hype rlipidemia Mixed Take 1 tablet (40 mg total) by mouth daily. 90 tablet 3 09/01/2023 pregabalin (LYRICA) 25 mg capsuleIndications:Cody ropathy Peripheral Take 1 capsule (25 mg total) by mouth 2 (two) times a day. 30 capsule 2 03/03/2024 documented as of this encounter Plan of Treatment Not on file documented as of this encounter Procedures Procedure Name Priority Date/Time Associated Diagnosis Comments CT ABDOMEN PELVIS WITH IV CONTRAST RAD - Semiurgent (Fast; most ED patients; some inpatients) 03/11/2024 4:27 PM CDT documented in this encounter Results * CT Abdomen Pelvis with IV [...] Skinny Hyatt M.D., M.P.H. IMG CT PROCEDURES documented in this encounter Visit Diagnoses Diagnosis Abdominal Pain- Primary documented in this encounter Administered Medications Inactive Administered Medications - up to 3 most recent administrations Medication Order MAR Action Action Date Dose Rate Site iohexoL 300 mg iodine/mL solution 138 mL (OMNIPAQUE) 138 mL, intravenous, Once in imaging, contrast, Starting on 03/11/24 at 1604, For 1 dose Given 03/11/2024 4:18 PM CDT 138 mL sodium chloride 0.9 % injection 10 mL 10 mL, intravenous, Once, On 03/11/24 at 1615, For 1 dose Given 03/11/2024 4:18 PM CDT 10 mL sodium chloride 0.9 % injection 10 mL 10 mL, intravenous, Once, On 03/11/24 at 1615, For 1 dose Given 03/11/2024 4:18 PM CDT 10 mL documented in this encounter Active and Recently Administered Medications Times are shown in CDT. Scheduled Medication Order 03/09/2024 03/10/2024 03/11/2024 sodium chloride 0.9 % injection 10 mL (COMPLETED) 10 mL, intravenous, Once, On 03/11/24 at 1615, For 1 dose 1618 (Given - Provid er: Raman Pozo(R)(CT), R.T.(R)) sodium chloride 0.9 % injection 10 mL (COMPLETED) 10 mL, intravenous, Once, On 03/11/24 at 1615, For 1 dose 1618 (Given - Provid er: Raman Pozo(R)(CT), R.T.(R)) PRN Medication Order 03/09/2024 03/10/2024 03/11/2024 iohexoL 300 mg iodine/mL solution 138 mL (OMNIPAQUE) (COMPLETED) 138 mL, intravenous, Once in imaging, contrast, Starting on 03/11/24 at 1604, For 1 dose 1618 (Given - Provid er: Raman Pozo(R)(CT), R.T.(R)) documented in this encounter Additional Health Concerns Assessment Noted Time PHQ-9 Depression Total Score: 0 10/10/20 14 2:25 PM DAIRY EQUIPMENT SPECIALIST documented as of this encounter Care Teams Admissions Coordinator Relationship Specialty Start Date End Date Sea Jha M.B.BYaniraSYanira, M.Maureen. [address] [place] [address] [place] [address] PCP - General Family Medicine 06/03/23 documented as of this encounter
--- OUTSIDE RECORDS SUMMARY | 2024-03-28 09:12 | XMS_ITS | Encounter Summary ---
Author Name Unknown Organization [facility] Address [address] [place] [address] Care Team Providers Care Recording Studio Setup Worker Name Role Phone Sea Jha, Isabella [facility] Reason for Visit * Reason Onset Date Comments Med Question 03/15/2024 Med increase mil ligrams Encounter Details Date Type Department Care Team (Latest Contact Info) Description 03/15/2024 Clinical Communication Department of Family Medicine, [facility], in [place], [place] [address] [place] [address] Sea Jha M.B.B.S., M.Maureen. [address] [place] [address] Med Question (Med increase milligrams) Social History Tobacco Use Types Packs/Day Years [...] often do you attend chur ch or hinduism services? More than 4 times per year 11/10/2021 Do you belong to any clubs o r organizations such as faith groups, unions, fraternal or athletic groups, or [...] Answer Date Recorded PHQ-2 Score 0 03/03/2024 [facility] - Occupational [...] Sex Assigned at Female 11/06/2021 3:47 PM FINANCIAL SALES ASSISTANT Gender Identity Female 04/07/2020 3:36 PM CDT Sexual Orientation Straight 04/07/2020 3: 36 PM CDT documented as of this encounter Miscellaneous Notes * Telephone Encounter - Tasia Clemons R.N. - 03/15/2024 12:31 PM CDT Exchange Operator spoke to patient to relay message from Olivier Garcia: I would recommend she double the dose of Lyrica. I called in a new prescription for her follow-up with Dr. Jha. Patient is in agreement with this plan, was transferred to scheduling but hung up. Marble Machine Operator is going to call her back to schedule. documented in this encounter Plan of Treatment Not on file documented as of this encounter Visit Diagnoses Diagnosis Neuropathy Peripheral documented in this encounter Additional Health Concerns Assessment Noted Time PHQ-9 Depression Total Score: 0 10/10/20 14 2:25 PM FINANCIAL SALES ASSISTANT documented as of this encounter Care Teams Recording Studio Setup Worker Relationship Specialty Start Date End Date Sea Jha M.B.B.S., Bubba. [address] [place] [phone] PCP - General Family Medicine 06/03/23 documented as of this encounter
--- OUTSIDE RECORDS SUMMARY | 2024-03-28 09:12 | XMS_ITS ---
Author Name Unknown Organization [facility] Address [address] [place] [address] Care Team Providers Care Law Enforcement Officer Name Role Phone Unavailable Unavailable Unavailable Surgery Details Not on file Complications Check Surgery Details section. Procedure Estimated Blood Loss Check Surgery Details section. Procedure Findings Check Surgery Details section. Procedure Specimens Taken Check Surgery Details section.
--- OUTSIDE RECORDS SUMMARY | 2024-03-28 09:12 | XMS_ITS | Clinical Summary ---
Author Name Unknown Organization [facility] Address [address] [place] [address] Care Team Providers Care Paymaster Of Purses Name Role Phone Sea Jha M.D. Primary Care P marcelinoder Source Comments Patient records contain information from all sites at [facility]. For routine questions regarding patient records, call [phone] during business hours, M-F 8:00 AM - 5:00 PM Central Time. Record requests for emergency care only can be directed to [phone] at any time.[facility] Allergies Active Allergy Reactions Criticality Noted Date Comments Oxycodone GI intolerance Low 10/12/2019 Nausea/vomiting Has tolerated hydromorphone Medications Medication Sig Dispensed Refills Start Date End Date Status acetaminophen (TYLENOL) 500 mg tablet Take 2 tablets (1,000 mg total) by mouth every 6 (six) hours as needed for pain. 100 tablet 11 09/17/20 22 Active flash glucose scanning reader (FreeStyle Veronika 14 Day [place]) miscIndications:D iabetes Mellitus Type 2 Hyperglycemia (HCC) [...] Wednesday and Wednesday. 90 tablet 3 04/01/20 024 Discontinued(Re order) albuterol (Ventolin HFA) 90 mcg/actuation inhalerIndication s:Bronchitis Chronic (HCC) Inhale 2 puffs every 4 (four) hours as needed for wheezing or shortness of breath. 18 g 07/30/20 024 Discontinued(Th erapy completed) glimepiride (AMARYL) 4 mg tabletIndications :Diabetes Mellitus Type 2 Hyperglycemia (HCC) Take 1 tablet (4 mg total) by mouth daily. 90 tablet 3 09/01/20 23 024 Discontinued(Th erapy completed) gabapentin (NEURONTIN) 300 mg capsule Take 300 mg by mouth 3 (three) times a day. 024 Discontinued Active Problems Problem Noted Date Diagnosed Date Malignant Neoplasm Of Breast Female Left Cancer Staging:Pathologic stage from 09/08/2023:Stage IB(pT1c, pN0(sn), cM0, G3, ER-, [place]-, HER2-) - Unsigned Obesity Body Mass Index [...] Overview: Added automatically from request for surgery [id number] Pain Shoulder Left 04/16/2020 1 Pulmonary Nodule Computed To mography Indeterminate 10/12/2019 02/05/2020 Nodule Pulmonary 09/25/2019 02/05/2020 Overview: Added automatically from request for surgery [id number] Mass Adrenal 09/22/2019 04/09/2020 Overview: Added automatically from request for surgery [id number] Gastroesophageal Reflux Dise ase With Esophagitis 08/14/2019 08/14/2019 Nodule Pulmonary Solitary 08/14/2019 Overview: Per xray Jul 2019 / Right CT Chest Aug 17, 2019 suspicious nodule Right Depression Major Recurrent Mild 06/06/2012 08/14/2019 Overview: Major depressive disorder, recurrent episode, Mild Encounters Date Type Department Care Team Description 03/15/2024 8:53 AM CDT - 03/15/2024 3:08 PM CDT Hospital Encounter Department of Radiation Oncology in [place], [place] [address] [place] [address] Judy Aguilar M.D. Malignant Neoplasm Of Breast Female Left (HCC) (Primary Dx) 03/15/2024 Clinical Communication Department of Family Medicine, [facility], in [address] [address] Sea Jha M.B.BIsabella Quintanilla Med Question (Med increase milligrams) 03/11/2024 2:02 PM CDT - 03/11/2024 6:06 PM CDT Emergency [facility] [address] [place] [phone] Abdominal Pain (Primary Dx) Discharge Disposition: Home or Self Care 03/03/2024 10:30 AM CDT Office Visit Department of [facility], [facility], [address] [address] Sea Jha M.B.B.S., M.D. Diabetes Mellitus Type 2 Hyperglycemia (HCC) (Primary Dx); Hyperlipidemia Mixed; Hypothyroidism Acquired; Malignant Neoplasm Of Lung Middle Lobe Or Bronchus (HCC); Nicotine Dependence Cigarettes; Obesity Body Mass Index 30-39.9 Adult; Neuropathy Peripheral 03/01/2024 9:20 AM CDT - 03/01/2024 11:59 PM CDT Hospital Encounter Department of Laboratory Medicine [address] [phone] Sea Jha M.B.BIsabella Quintanilla Diabetes Mellitus Type 2 Hyperglycemia (HCC); Hyperlipidemia Mixed; Hypothyroidism Acquired Discharge Disposition: Home or Self Care 12/30/2023 Refill Department of Family Medicine, [facility], [address] [address] Tammy Medina M.D. Med Refill from Last 3 Months Immunizations Name Administration Dates Next Due Influenza TIV (IM) 08/18/2013 Influenza, Seasonal, Injectable 08/18/2013 PCV13 08/22/2019 PPSV23(Discontinued) 04/09/2020 Tdap 05/12/2022, 2,02/11/2012, 008 influenza vaccine quad (FLUZONE/FLUARIX) (6 months and older)(PF) 09/10/2022,11/10/2021,08/14/2019, 017,09/25/2014 Family History Medical History Relation Name Comments Colon cancer Father Tim Guardado Diagnosis 1979 Diabetes Father Tim Guardado Lung cancer Maternal Grandfather Mrs. Padilla Coronary artery disease Mother Edel Guardado Heart attack Mother Edel Guardado Lung cancer Mother Edel Guardado Breast cancer Mother's Sister Alondra Breast cancer Sister 1 Nicolette Breast cancer Sister 2 Destinee Relation Name Status Comments Father Tim Guardado (Age 50) colon canc er / diabetes Maternal Grandfather MrsYanira Person Mother Edel Guardado (Age 64) heart att ack Mother's Sister Alondra Sister 1 Nicolette Sister Salina Felipe Alive Social History Tobacco Use Types Packs/Day Years [...] week 11/10/2021 How often do you attend [facility] or sabianist services? More than 4 times per year 11/10/2021 Do you belong to any clubs o r organizations such as sabianist groups, unions, fraternal or athletic groups, or [...] Answer Date Recorded PHQ-2 Score 0 03/03/2024 [facility] - Occupational Stress Questionnaire Answer Date Recorded [...] Sex Assigned at Female 11/06/2021 3:47 PM RIVETER HAND Gender Identity Female 04/07/2020 3:36 PM CDT [...] 03/03/2024 10:27 AM CDT Plan of Treatment Health Maintenance Due Date Last Done Comments CT Colonography 1966 Cologuard 1966 Dilated Eye Exam 1966 Hepatitis C Screening 1966 Hepatitis B Vaccines (1 of 3 - 19+ 3-dose series) 1985 Zoster Vaccines (1 of 2) 1985 COVID-19 Vaccine (3 - Pfizer risk series) 10/15/2021 09/17/2021, 08/20/2021 Influenza Vaccine (#1) 2023 , 11/10/2021, 08/14/2019, Additional history exists Diabetic Office Visit with Foot Exam 05/31/2024 05/31/2023, 11/10/2021, 08/22/2019 Hemoglobin A1C 05/31/2024 03/01/2024, 10/23, 07/29/2023, Additional history exists Urine Albumin 07/29/2024 07/29/2023, 08/22, 11/07/2021, Additional history exists Mammogram 08/18/2024 08/18/2023, 02/20, 02/24/2022, Additional history exists Thyroid Stimulating Hormone (TSH) test for thyroid function 03/01/2025 03/01/2024, 11/16/2023, 07/29/2023, Additional history exists Colonoscopy 03/02/2025 03/02/2022, 06/22, 07/02/2017 (Performed elsewhere) Colorectal Cancer Surveillance 03/02/2025 Office Visit for Blood Pressure Check / Re-check 03/03/2025 03/03/2024 Tobacco Cessation counseling 03/03/2025 03/03/2024, 09/10/2022 Visit: Chronic Disease, age 18+ 03/03/2025 03/03/2024, 09/10/2022 Creatinine Level (Kidney Function Test) 03/11/2025 03/11/2024, 07/29/2023, 08/31/2022, Additional history exists Pneumococcal vaccine (0-64 years) (3 of 3 - PPSV23 or PCV20) 04/09/2025 04/09/2020, 08/22/2019 Lipid (Cholesterol) Screening 03/01/2029 03/01/2024, 08/31/2022, 11/10/2021, Additional history exists DTaP,Tdap,and Td Vaccines (5 - Td or Tdap) 05/12/2032 05/12/2022, 03/06/2012, 02/11/2012, Additional history exists Depression Screening (Annual PHQ-2) Completed 03/03/2024, 03/03/2024 HPV Vaccines Aged Out No longer eligi ble based on patient's age to complete this topic Medical Devices Implanted Type Area Residential Construction Instructor Device Identifier Shelf Expiration Date Model / [...] OUTSIDE CT BODY Routine 12/29/2023 3:45 PM RIVETER HAND BI BREAST DIAGNOSTIC BILATERAL WITH TOMOSYNTHESIS RAD [...] Sea Hurd M.D. LAB BLO OD ADD-ON [facility] [address] [place] [address], [place] [facility] [facility] [place] [address] [place] [address] * S-TSH (Thyroid-Stimulating Hormone - Sensitive) (03/01/2024 9:31 AM CDT) TSH, Sensitive 3.2 0.3 - 4.2 mIU/L 03/01/2024 2:22 PM CDT [facility] Blood (Blood, Venous) 03/01/2024 9:31 AM CDT 03/01/2024 1:32 PM CDT Sea Hurd M.D. LAB BLO OD ADD-ON Performing Organization Address City/[facility]/ZIP Co de Phone Number [facility] [address] [place] [address], [facility] [place] [address] [place] [address] * (ABNORMAL) Hemoglobin A1c (03/01/2024 9:31 AM [...] Sea Hurd M.D. LAB BLO OD ADD-ON [facility] [address] [place] [address], [place] [facility] [place] [address] [place] [address] * Thorax CHEST_WO (Adult)-Outside CT Body (12/29/2023 3:45 PM RIVETER HAND) Narrative IIMS - 03/08/2024 9:43 AM CDT This order has been created and auto-finalized to support the import of outside images. If available, original interpretation can be found on the Media Tab in Chart Review, in Document Viewer, or as an image in QREADS. If a re-interpretation or overread is required please follow defined workflow. ?? Provider Not In System IMG CT PROCEDURES IICT NA * (ABNORMAL) BI Breast Diagnostic Bilateral [...] Ultrasound-guided biopsy. ASSESSMENT: BI-RADS: 4: Suspicious. Sea Hurd M.D. IMG BI PROCEDURES * Albumin, Random, Urine (07/29/2023 9:10 AM CDT) Microalbumin 15.0 mg/L 07/29/2023 11:57 AM CDT [facility] Creatinine 219 mg/dL 07/29/2023 11:57 AM CDT [facility] Albumin/Creatinin e Ratio 7 <25 mg/g 07/29/2023 11:57 AM CDT [facility] Urine (Urine, Midstream) 07/29/2023 9:10 AM CDT 07/29/2023 11:04 AM CDT Sea Hurd M.D. LAB URI NE ORDERABLES [facility] [address] [place] [address], [place] [facility] [place] [address] [place] [address] * Colonoscopy (07/02/2017) EXT Colonoscopy Abnormal - See Scanned Report for Details Normal - See Scanned Report for Details Comment:See care everywhere [facility] surgical history, repeat 3 years Historical Provider GI PROCEDURE ORDERAB LES from Last 3 Months or Most Recently Relevant to Health Maintenance Advance Directives For more information, please contact: [phone] * Full Code (Latest Code Status on [...] Due to: Patient not available Care Teams Paymaster Of Purses Relationship Specialty Start Date End Date Sea Jha M.B.BYaniraS., M.Maureen. [address] [place], [place] [address]tete Evert ADRIANA [phone] PCP - General Family Medicine 06/03/23
--- OUTSIDE RECORDS SUMMARY | 2024-03-28 09:12 | XMS_ITS | Encounter Summary ---
Author Name Unknown Organization [facility] Address [address] [place] [address] Care Team Providers Care Cost Controller Name Role Phone Sea Jha M.D. Primary Care P elio Reason for Visit * Appointment Request (Routine) - Closed Specialty Diagnoses / Procedures Referred By Comfort ellsworth Referred To Contact Radiation Oncology Diagnoses Malignant Neoplasm Of Breast Female Left (HCC) Andressa Conway M.D. [address] [place] [address] Referral ID Status Reason Start Date Expiration Date Visits Re quested Visits Authorized [id number] Closed 03/07/2024 03/07/2025 1 1 Encounter Details Date Type Department Care Team (Latest Contact Info) Description 03/15/2024 8:53 AM CDT - 03/15/2024 3:08 PM CDT Hospital Encounter Department of Radiation Oncology in [place], [place] [address] [place] [phone] Judy Aguilar M.D. [address] [place] [phone] Malignant Neoplasm Of Breast Female Left (HCC) (Primary Dx) Social History Tobacco Use Types Packs/Day Years [...] week 11/10/2021 How often do you attend [facility] or catholic services? More than 4 times per year [...] Answer Date Recorded PHQ-2 Score 0 03/03/2024 [facility] - Occupational Stress [...] place to sleep or slept in a mcc (including now)? 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 Gender Identity Female 04/07/2020 3:36 PM CDT Sexual Orientation Straight 04/07/2020 3: 36 PM CDT documented as of this encounter Last Filed Vital Signs Vital Sign Reading Time Taken Comments Blood Pressure 130/82 03/15/2024 9:14 AM CDT Pulse 90 03/15/2024 9:14 AM CDT Temperature 35.9 ??C (96.6 ??F) 03/15/2024 9:14 AM CD T Respiratory Rate - - Oxygen Saturation - - Inhaled Oxygen Concentration - - Weight 84 kg (185 lb 3 oz) 03/15/2024 9:14 AM CD T Height - - Body Mass Index 29.41 03/03/2024 10:27 AM CDT documented in this encounter Medications at Time of Discharge Medication Sig Dispensed Refills Start Date End Date acetaminophen (TYLENOL) 500 mg tablet Take 2 tablets (1,000 mg total) by mouth every 6 (six) hours as needed for pain. 100 tablet 11 09/17/2022 dulaglutide (Trulicity) 3 mg/0.5 mL injectionIndications: Diabetes Mellitus Type 2 Hyperglycemia (HCC) Inject 0.75 mL (4.5 mg total) under the skin every 7 (seven) days. 6 mL 3 07/30/2023 flash glucose scanning reader (FreeStyle Veronika 14 Day [place]) miscIndications:Diabe betsy Mellitus Type 2 Hyperglycemia (HCC) USE WITH VERONIKA SENSOR 1 each 09/17/2022 flash glucose sensor (FREESTYLE VERONIKA) kitIndications:Diabet es Mellitus Type 2 Hyperglycemia (HCC) Change sensor every 14 days. 6 kit 3 11/24/2023 levothyroxine (SYNTHROID, LEVOTHROID) 150 mcg tabletIndications:Hyp othyroidism Acquired Take levothyroxine 150 mcg Wednesday through Wednesday. 90 tablet 3 03/03/2024 levothyroxine (SYNTHROID, LEVOTHROID) 25 mcg tabletIndications:Hyp othyroidism Acquired Take 25 mcg on Wednesday and Wednesday. 90 tablet 3 03/03/2024 pravastatin (PRAVACHOL) 40 mg tabletIndications:Hyp erlipidemia Mixed Take 1 tablet (40 mg total) by mouth daily. 90 tablet 3 09/01/2023 pregabalin (LYRICA) 25 mg capsuleIndications:Ne uropathy Peripheral Take 1 capsule (25 mg total) by mouth 2 (two) times a day. 30 capsule 2 03/03/2024 pregabalin (LYRICA) 50 mg capsule Take 1 capsule (50 mg total) by mouth 2 (two) times a day. 60 capsule 11 03/15/2024 03/15/2025 documented as of this encounter Consult Notes * Sheryl Aponte M.D. - 03/15/2024 9:00 AM CDT RADIATION ONCOLOGY CONSULTATION Supervising Regional Transfer Liaison: Dr. Judy Aguilar REQUESTING PROVIDER Andressa Conway M.D. 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 White is 59 y.o. 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 She presents today to discuss radiotherapy for recently diagnosed breast cancer. Oncology History Overview Note Mrs. Caroline White is a female from [place], [place], with a history of right lung cancer. She has a smoking history, developed a cough and back pain, and underwent CT chest in 2019. Malignant Neoplasm Of Unspecified Part Of Lung Laterality Unknown (HCC) 08/17/2019 Other 08/17/19: Chest CT revealed suspicious 2.2 cm RML nodule, significantly increased in size since December 2018. Indeterminant 1 cm T6 vertebral body sclerotic lesion is nonaggressive appearing but new since 2009. 09/06/19: FDG PET/CT revealed enlarging, FDG avid RML mass is highly suspicious for a primary lung cancer. No evidence of nohemy or metastatic disease. Hyperdense extra-axial mass in the left frontal region, consistent with a small meningioma. 09/08/19: MRI brain revealed no evidence of focal restricted diffusion or intracranial susceptibility artifact. 09/28/19: She underwent right adrenalectomy of increasing 4.5 cm right adrenal myelolipoma, with pathology revealing adrenal cortical adenoma. 10/12/19: She underwent RML wedge resection by Dr. Cotton. Pathology revealed invasive moderately-differentiated adenocarcinoma, acinar predominant, forming a mass measuring 1.9 cm in greatest dimension. Visceral pleural invasion was present. The surgical margin was negative for tumor by 0.6 cm. Intrapulmonary peribronchial lymph nodes were not identified; pT2, N0. 05/08/20: Follow-up chest CT chest revealed expected postoperative changes s/p right middle lobectomy as well as soft tissue thickening along the resection margin that would need re-evaluation at follow up imaging. There were also new indeterminate pulmonary micronodules in the right lung. 11/05/20: CT chest revealed new indeterminate 7 x 10 mm solid nodule or lymph node in the right lower lobe perihilar region anterior to a surgical clip or staple. Slightly increased small focus of subpleural groundglass in the superior segment right lower lobe. 11/12/20: PET/CT revealed possible right pulmonary perihilar lung cancer metastasis. After review of the imaging and options, repeat imaging in three months was recommended. 02/24/21: CT chest revealed enlargement of the right perihilar nodule/node adjacent to the surgical clips in the right hilum. 02/27/21: Bronchoscopy with right hilar mass biopsy was positive for adenocarcinoma. 03/07/21: MRI brain revealed no evidence of intracranial metastatic disease. No significant change in size or morphology of presumed left frontal convexity meningioma. 03/17/21 - 04/29/21: Radiation therapy to the right hilar recurrence to a dose of 6000 cGY in 30 fractions under the care of Dr. Aguilar. The patient received concurrent weekly carboplatin under the careof Dr. Landin. 06/02/21 - 06/16/22: Durvalumab x 1 year. 12/2023: CT chest demonstrated stable posttreatment changes in the right infrahilar space. Stable mildly prominent right lower paratracheal lymph node. No definite evidence for new sites of metastases. Malignant Neoplasm Of Breast Female Left (HCC) 08/18/2023 Critical Imaging Diagnostic bilateral breast mammogram with tomosynthesis and left breast ultrasound was performed. FINDINGS: Mammogram: In the left breast at [...] axillary lymph nodes are within normal limits. 08/24/2023 Biopsy/Pathology FINAL DIAGNOSIS Breast, left, mass, 12 o'clock, 5 cm from nipple, core biopsies: --- Invasive ductal carcinoma, preliminary Narda grade 2 (of 3). --- Grading based on tubule formation 3 (of 3), nuclear pleomorphism 3 (of 3) and mitoses 1 (of 3). --- There is no ductal carcinoma in situ. --- There is no angiolymphatic invasion. COMMENT: As the tumor has a scant dispersed single cell pattern, it may be representing the edge ofthe main lesion and thus ER/IN, Ki-67 and HER2 analysis would be more bilingual sales representative on the apparently undersampled main lesion. The tumor cells are positive for GATA3 and membranous p120, supportinga diagnosis of mammary ductal carcinoma. The cells are negative for TTF1 (prior history of lung adenocarcinoma 12 Oct 2019). 09/03/2023 Critical Imaging PET-CT scan Impression: 1. Metabolically active medial left breast mass with a biopsy clip SUV max 3.6. 2. Metabolically active infiltrate with volume loss right lower lobe of the lung, SUV max 3.0-3.5, likely postinfectious/postinflammatory presumably related to radiation therapy. This is new comparedto the prior PET scan which was a pretreatment scan. Malignancy could not be entirely excluded. This will require follow-up. 3. Postsurgical change from a right-sided thoracotomy/right middle lobectomy. 4. Absent left thyroid gland. Metabolically active nodule right thyroid gland SUV max 3.6. A thyroid ultrasound and potentially FNA may be required. 09/08/2023 Surgery and Procedures Left breast lumpectomy and left axillary sentinel lymph node biopsy was performed by Dr. Cesar Tellez. A) SENTINEL LYMPH NODES 2 AND 3, LEFT AXILLA, BIOPSY: 1. Negative for malignancy in 2 lymph nodes (0/2) B) LEFT BREAST, LUMPECTOMY: 1. Epithelial-myoepithelial carcinoma with a component of low-grade adenosquamous metaplastic carcinoma, overall Liberty grade III of III a. Size: 17 mm b. Core biopsy site is associated with tumor 2. Ductal carcinoma in situ (DCIS), nuclear grade 2, Cribriform and Solid type 3. Margins: a. Invasive carcinoma is 5 mm from the medial margin b. DCIS is > 10 mm from the posterior margin 4. Breast Ancillary Testing: Performed on B4 (both epithelial-myoepithelial carcinoma and metaplastic carcinoma components evaluated) a. Hormone Receptors: Estrogen receptor: Negative Progesterone receptor: Negative b. HER2 by IHC: Negative (0 by manual morphometry) 5. Benign skin C) SENTINEL LYMPH NODE 1, LEFT AXILLA, BIOPSY: 1. Negative for malignancy in 1 lymph node (0/1) INVASIVE CARCINOMA OF THE BREAST: Resection INVASIVE CARCINOMA OF THE BREAST: RESECTION - All Specimens 8th Edition - Protocol posted: 05/12/2023 SPECIMEN Procedure: Excision (less than total mastectomy) Specimen Laterality: Left TUMOR Tumor Site: Clock position : 12 o'clock Tumor Site: Distance from nipple (Centimeters): 5 cm Histologic Type: Epithelial-myoepithelial carcinoma with a component of low- grade adenosquamous metaplastic carcinoma Histologic Grade (Narda Histologic Score): Glandular (Acinar) / Tubular Differentiation: Score 3 Nuclear Pleomorphism: Score 3 Mitotic Rate: Score 3 Overall Grade: Grade 3 (scores of 8 or 9) Tumor Size: Greatest dimension of largest invasive focus (Millimeters): 17 mm Tumor Focality: Single focus of invasive carcinoma Ductal Carcinoma In Situ (DCIS): Present : Negative for extensive intraductal component (EIC) Architectural Patterns: Cribriform Architectural Patterns: Solid Nuclear Grade: Grade II (intermediate) Necrosis: Not identified Lobular Carcinoma In Situ (LCIS): Not identified Lymphatic and / or Vascular Invasion: Not identified Dermal Lymphatic and / or Vascular Invasion: Not identified Treatment Effect in the Breast: No known presurgical therapy MARGINS Margin Status for Invasive Carcinoma: All margins negative for invasive carcinoma Distance from Invasive Carcinoma to Closest Margin: 5 mm Closest Margin(s) to Invasive Carcinoma: Medial Margin Status for DCIS: All margins negative for DCIS Distance from DCIS to Closest Margin: Greater than: 10 mm Closest Margin(s) to DCIS: Posterior REGIONAL LYMPH NODES Regional Lymph Node Status: : All regional lymph nodes negative for tumor Total Number of Lymph Nodes Examined (sentinel and non-sentinel): 3 Number of Ralph Nodes Examined: 3 pTNM CLASSIFICATION (AJCC 8th Edition) pT Category: pT1c pN Category: pN0 N Suffix: (sn) Test(s) Performed: Estrogen Receptor (ER) Status: Negative (less than 1%) Test(s) Performed: Progesterone Receptor (PgR) Status: Negative (less than 1%) Test(s) Performed: HER2 by Immunohistochemistry: Negative (Score 0) 10/12/2023 - 12/16/2023 Chemotherapy The patient was seen at [facility] under the care of Dr.Magali Crowley. Taxotere/Cytoxan every three weeks x 4 cycles. 10/29/2023 Genetic Testing and Tumor Genotyping [facility] diagnostic testing. Result: Positive One Pathogenic variant identified in ISSA. ISSA is associated with autosomal dominant predisposition to certain cancers and autosomal recessive ataxia-telangiectasia. 03/06/2024 Other Medical Oncology appointment with Dr. Conway. PET-CT scan was ordered. Radiation Oncology referral.Plan to review detailed genetic testing results to see if bilateral mastectomies is warranted, return visit in 4-6 weeks. 03/23/2024 Critical Imaging PET-CT scan scheduled. Today: Mrs. White is doing relatively well. She is still recovering from chemotherapy, which was relatively difficult. Unfortunately she required hospitalization for dehydration and developed significant neuropathy, for which she is now using Lyrica with some improvement. Before Lyrica, even walking was difficult because of neuropathy -- now this is slightly improved. The patient's energy level is recovering but she is not yet able to do everything that she wants to do throughout the day. Mrs. White was seen in the emergency department four days ago for abdominal pain, and was diagnosed with enteritis. She had diarrhea at the time, but this has now resolved. No residual abdominalpain today. Additionally the patient denies shortness of breath, chest pain, and nausea or vomiting. She has no breast pain or other discomfort. Fatigue: 7/10 (residual from chemotherapy treatments) Pain: 0/10 Overall QOL: 10 REVIEW OF SYSTEMS Review of systems as noted in HPI. Medications, Allergies, Pertinent Past Medical History, Past Surgical History, Social History, and Family History were reviewed. 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 PHYSICAL EXAMINATION ECOG score: 1 - Restricted in physically strenuous activity but ambulatory and able to carry out work of a light or sedentary nature General: Well-appearing, in no acute distress. Hair is short but growing back. Lungs: Normal work of breathing on room air. Skin: Warm, dry. Psychiatric: Euthymic mood and appropriate affect. Displays a good understanding of the clinical situation, the genetic alteration, and treatment options. Extremities: No significant edema. RECENT IMAGING, independently reviewed: 03 September 2023: PET/CT: 1. Metabolically active medial left breast mass with a biopsy clip SUV max 3.6. 2. Metabolically active infiltrate with volume loss right lower lobe of the lung, SUV max 3.0-3.5, likely postinfectious/postinflammatory presumably related to radiation therapy. This is new comparedto the prior PET scan which was a pretreatment scan. Malignancy could not be entirely excluded. This will require follow-up. 3. Postsurgical change from a right-sided thoracotomy/right middle lobectomy. 4. Absent left thyroid gland. Metabolically active nodule right thyroid gland SUV max 3.6. A thyroid ultrasound and potentially FNA may be required. 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 White is a 59 y.o. patient with an ISSA gene pathologic variant and history of multiple cancers, most recently breast cancer s/p lumpectomy and adjuvant chemotherapy. She presents today to discuss radiation therapy. We reviewed the pertinent clinical and pathologic features of the disease and the implications of the ISSA pathologic variant. The patient has talked with a genetic counselor and has a good understanding of the implication of the genetic variant. She does have multiple people in her family who have had multiple cancers, and is interested in doing everything possible to further reduce her risk of cancer in the future. We discussed that the genetic counselor had estimated an approximately 4% risk of a contralateral breast cancer over the next 10 years, and that breast cancer screening could include an MRI as well as mammogram. The patient had a very good surgery, lumpectomy with negative margins and no lymph nodes positive. Whole breast radiation would be indicated ad juvantly for this unusual breast histology, and there is NO evidence that radiation is contraindicated for a person with ISSA pathologic variant. Case series have showed NO higher rates of toxicity, and our colleagues in genetics concur with this assessment. Alternatively, the patient could elect for bilateral mastectomy, to maximally lower her risk of contralateral breast cancer. Mrs. White is strongly in favor of this option. She understands that the 4% risk of contralateral breast cancer would be lowered to near zero after mastectomy, and states that she would have greater peace of mind going this route, instead of radiation. This is a very reasonable treatment choice, and although prophylactic mastectomy is not mandated for this pathologicvariant in ISSA, the patient would very much prefer to go forward with surgery. We support her choice. We very briefly discussed that radiation would entail treating the entire left breast over five days. We did not discuss potential side-effects or the logistics of radiation, as the patient is certain that she would like to meet a surgeon and discuss bilateral mastectomy. We did briefly discuss smoking cessation, and Mrs. White knows that smoking does increase her risk of cancers on top of the ISSA variant. She is motivated to quit and has made great progress in cutting back from 2.5 packs per day to only 4 cigarettes per day. She knows the tobacco cessation clinic is a resource that we have here if she were to want to explore additional resources to help quitsmoking, or seek additional support. Patient seen for the service of Dr. Judy Aguilar. PLAN - The patient will meet with a surgeon to discuss bilateral mastectomy, her treatment preference - The patient understands that radiation is a good treatment option but does prefer mastectomy - She has made great progress cutting back smoking, and will work towards zero cigarettes Signed: Sheryl Aponte MD Resident Physician Department of Radiation Oncology Please don't hesitate to contact me with questions or discussion! Text Pager: [phone] Associated attestation - Judy Aguilar M.D. - 03/15/2024 3:08 PM CDT RADIATION ONCOLOGY CONSULT I saw and evaluated the patient and participated in the mccabe portions of the service. I reviewed thedocumentation of Dr. Sheryl Aponte and agree with the findings and plan. Please see Dr. Aponte's detailed note for the patient's initial presentation and work-up. Briefly,Mrs. White is well known to me from her prior right hilar recurrent lung cancer that was treated with radiation and chemotherapy in 2020. She now presents after lumpectomy, SLN Bx and adjuvant chemotherapy for a 1.7cm epithelial-myoepithelial carcinoma with a component of low grade adenosquamous metaplastic carcinoma, overall Grade III that was triple negative. Margins were negative by 5mm on the invasive component. A single sentinel lymph node was negative. She was found to have an ISSA mutation, but understand that she can have radiation (of note she tolerated radiation previously). I have independently reviewed her imaging, operative and pathology reports. She is scheduled for a PET/CT on March 23 and is not interested in more radiation and is looking into bilateral mastectomies. On exam, she appears well. Detailed exam was deferred as she is considering mastectomy. We discussed the findings above and below in this note with the patient. She does understand that she is not at greater risk for breast cancer with her ISSA mutation, but just wants to avoid radiationif possible and would like to be considered for bilateral mastectomy. She will get the results of her PET/CT and then see the surgeon. If she has no recurrence of disease in the breast, then I see noindications for adjuvant radiation therapy after mastectomy even for this rare histology. If she would have a recurrence after surgery and chemotherapy, then I might offer chest wall and nohemy radiation. Of course, I would need to see her back to discuss this. I explained this to her. I encouraged her to quit smoking and offered NDC. My thanks to Drs. Conway, Cesar Tellez, Yao Cadena, and Ms. Fields for the opportunity to participate in this patient's care. EDUCATION Ready to learn, no apparent learning barriers were identified; learning preferences include listening. Explained diagnosis and treatment plan; patient expressed understanding of the content. DIAGNOSIS #1 Stage II, pT2 N0 M0 right middle lobe adenocarcinoma, s/p surgery #2 Regional recurrence of #1, right hilar recurrence, s/p biopsy #3 Concurrent chemoradiotherapy, completed on April 28, 2021, followed by Durvalumab #4 Status post lumpectomy and adjuvant chemotherapy for a pT1c N0(sn) M0, G3, triple negative epithelial-myoepithelial and adenosquamous adenocarcinoma of the left breast I personally spent 35 minutes in care of the patient today. Time includes both non face to face andface to face patient care. Signed by: Judy Aguilar M.D. 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 [address] [place] [phone] PCP - General Family Medicine 06/03/23 documented as of this encounter
--- OUTSIDE RECORDS SUMMARY | 2024-03-28 09:13 | XMS_ITS | Encounter Summary ---
Author Name Unknown Organization [facility] Address [address] [place] [address] Care Team Providers Care Health Occupations Instructor Name Role Phone Sea Jha M.D. Primary Care P elio Reason for Visit * Reason Comments Med Refill Encounter Details Date Type Department Care Team (Late st Contact Info) Description 12/30/2023 Refill Department of Family Medicine, [facility], in [place], [place] [address] [place] [address] Tammy Medina M.D. [address] [place] [address] Med Refill Social History Tobacco Use Types Packs/Day Years [...] How often do you attend chur or latter day services? More than 4 times per year 11/10/2021 Do you belong to any clubs o r organizations such as episcopal groups, unions, fraternal or athletic groups, or [...] PHQ-2 Answer Date Recorded PHQ-2 Score 0 03/01/2023 [facility] of Occupat ional Health - Occupational Stress [...] place to sleep or slept in a halfway (including now)? No 11/10/2021 Nutrition Answer Date [...] Sex Assigned at Female 11/06/2021 3:47 PM CUSTOMS DIRECTOR Gender Identity Female 04/07/2020 3:36 PM CDT Sexual Orientation Straight 04/07/2020 3: 36 PM CDT documented as of this encounter Miscellaneous Notes * Telephone Encounter - Hina Diaz L.P.N. - 01/06/2024 8:09 AM CUSTOMS DIRECTOR Patient is taking her thyroid medication 150 mcg M-F and 175 mcg Wednesday and Wednesday. This request was made in error. Please disregard per patient. OMS DIRECTOR * Telephone Encounter - Felicia Martienz - 12/30/2023 11:22 AM CST Lab Results Component Value Date TSH 48.8 (H) 11/16/2023 Nurse review: Med Refill Team is unable to forward request to provider; Discrepancy: Verification Required. Medication Discontinued. Primary Provider: Vannessa Moore M.D. Requested Prescriptions Pending Prescriptions Disp Refills levothyroxine (SYNTHROID, LEVOTHROID) 100 mcg tablet [Pharmacy Med Name: LEVOTHYROXINE 0.100MG (100MCG) TAB] 90 tablet 0 Sig: take 1 tablet by mouth every day OMS DIRECTOR documented in this encounter Plan of Treatment Not on file documented as of this encounter Visit Diagnoses Not on filedocumented in this encounter Additional Health Concerns Assessment Noted Time PHQ-9 Depression Total Score: 0 10/10/20 14 2:25 PM CUSTOMS DIRECTOR documented as of this encounter Care Teams Health Occupations Instructor Relationship Specialty Start Date End Date Sea Jha M.B.B.S., M.D. [address] [place] [phone] PCP - General Family Medicine 06/03/23 documented as of this encounter
--- OUTSIDE RECORDS SUMMARY | 2024-03-28 09:13 | XMS_ITS | Encounter Summary ---
Author Name Unknown Organization [facility] Address [address] [place] [address] Care Team Providers Care Focuser Name Role Phone Sea Jha M.D. [facility] Encounter Details Date Type Department Care Team (Latest Contact Info) Description 03/01/2024 9:20 AM CDT - 03/01/2024 11:59 PM CDT Hospital Encounter Department of Laboratory Medicine in [place], [place] [address] [place] [address] Sea Jha M.B.B.S., [place] [address] [place] [address] Diabetes Mellitus Type 2 Hyperglycemia (HCC); Hyperlipidemia Mixed; Hypothyroidism Acquired Discharge Disposition: Home or Self Care Social [...] How often do you attend chur or worship services? More than 4 times per year 11/10/2021 Do you belong to any clubs o r organizations such as samaritan groups, unions, fraternal or athletic groups, or [...] Answer Date Recorded PHQ-2 Score 0 03/01/2023 [facility] of Occupat ional Health - Occupational Stress [...] place to sleep or slept in a half-way (including now)? No 11/10/2021 Nutrition Answer Date [...] Sex Assigned at Female 11/06/2021 3:47 PM INSTRUMENT CHECKER Gender Identity Female 04/07/2020 3:36 PM CDT [...] glucose scanning reader (FreeStyle Veronika 14 Day [place]) miscIndications:Diabe betsy Mellitus Type 2 Hyperglycemia (HCC) USE WITH VERONIKA SENSOR 1 each 09/17/2022 flash glucose sensor (FREESTYLE VERONIKA) kitIndications:Diabet es Mellitus Type 2 Hyperglycemia (HCC) Change sensor every 14 days. 6 kit 3 11/24/2023 pravastatin (PRAVACHOL) 40 mg tabletIndications:Hyp erlipidemia Mixed Take 1 tablet (40 mg total) by mouth daily. 90 tablet 3 09/01/2023 albuterol (Ventolin HFA) 90 mcg/actuation inhalerIndications:Br onchitis Chronic (HCC) Inhale 2 puffs every 4 (four) hours as needed for wheezing or shortness of breath. 18 g 07/30/2023 03/03/2024 glimepiride (AMARYL) 4 mg tabletIndications:Mimi betes Mellitus Type 2 Hyperglycemia (HCC) Take 1 tablet (4 mg total) by mouth daily. 90 tablet 3 09/01/2023 03/03/2024 levothyroxine (SYNTHROID, LEVOTHROID) 150 mcg tablet Take levothyroxine 150 mcg Wednesday through Wednesday. 90 tablet 3 04/01/2023 03/03/2024 levothyroxine (SYNTHROID, LEVOTHROID) 25 mcg tablet Take 25 mcg on Wednesday and Wednesday. 90 tablet 3 04/01/2023 03/03/2024 documented as of this encounter Miscellaneous Notes * Result Encounter Note - Sea Jha M.B.B.S., M.D. - 03/01/2024 5:45 PM CDT Cholesterol although still high has improved from last year. Please maintain a Mediterranean diet. TSH is within normal limits. Please continue with current dose. A1c has improved significantly. Please continue on glimepiride and Trulicity. We will repeat A1c inJuly. documented in this encounter Plan of Treatment Not on file documented as of this encounter Procedures Procedure Name Priority Date/Time Associated Diagnosis Comments LIPID PANEL, S Routine 03/01/2024 9:32 AM CDT Hyperlipidemia Mixed THYROID-STIMULATING HORMONE-SENSITIVE (S-TSH) Routine 03/01/2024 9:31 AM CDT Hypothyroidism Acquired HEMOGLOBIN A1C, B Routine 03/01/2024 9:3 1 AM CDT Diabetes Mellitus Type 2 Hyperglycemia (HCC) documented in this encounter Results * (ABNORMAL) Lipid Panel (03/01/2024 9:32 AM [...] equation. Cholesterol, HDL 34(L) >=50 mg/dL 03/01/20 24 2:05 PM CDT OWAT Cholesterol, Non-HDL, Calculated [...] LAB BLO OD ADD-ON Performing Organization Address [facility] Co de Phone Number [facility] [address] [place] [address], [facility] in [place] [address] [place] [phone] * S-TSH (Thyroid-Stimulating Hormone - Sensitive) (03/01/2024 9:31 AM CDT) TSH, Sensitive 3.2 0.3 - 4.2 mIU/L 03/01/2024 2:22 PM CDT [facility] Blood (Blood, Venous) 03/01/2024 9:31 AM CDT 03/01/2024 1:32 PM CDT Sea Hurd M.D. LAB BLO OD ADD-ON Performing Organization Address [facility] Co de Phone Number [facility] [address] [place] [address], [facility] in [place] [address], [place] [address] * (ABNORMAL) Hemoglobin A1c (03/01/2024 9:31 AM CDT) Hemoglobin A1c, B 7.3(H) 4.2 - 5.6 % 03/01/2024 2:28 PM CDT [facility] Comment: Hemoglobin A1c values greater than or equal to 6.5 percent are diagnostic for diabetes mellitus. ??Diagnosis should be confirmed by repeat testing. ??In diabetic patients, HbA1c goals should be discussed with healthcare provider. Blood (Blood, Venous) 03/01/2024 9:31 AM CDT 03/01/2024 1:32 PM CDT Sea Hurd M.D. LAB BLO OD ADD-ON [facility] [address] [place] [address], [facility] in [place] [address] [place] [address] documented in this encounter Visit Diagnoses Diagnosis Diabetes Mellitus Type 2 Hyperglycemia (HCC) Hyperlipidemia Mixed Hypothyroidism Acquired documented in this encounter Additional Health Concerns Assessment Noted Time PHQ-9 Depression Total Score: 0 10/10/20 14 2:25 PM INSTRUMENT CHECKER documented as of this encounter Care Teams Focuser Relationship Specialty Start Date End Date Sea Jha M.B.B.S., M.D. [address] [place] [phone] PCP - General Family Medicine 06/03/23 documented as of this encounter
--- OUTSIDE RECORDS SUMMARY | 2024-03-28 09:13 | XMS_ITS | Clinical Summary ---
Author Name Unknown Organization [facility] Address [place], [place] [address] Care Team Providers Care Senior Quality Assurance Analyst Name Role Phone Sea Jha Primary Care Provider Allergies Active Allergy Reactions Criticality Noted Date Comments Oxycodone Nausea And Vomiting, GI Upset,Intolerance-Can' t Take Low 10/12/2019 Nausea/vomiting Has tolerated hydromorphone Medications Medication Sig Dispensed Refills Start Date End Date Status rosuvastatin (CRESTOR) 10 mg tabletIndications:M ixed hyperlipidemia TAKE ONE TABLET BY MOUTH AT BEDTIME 90 tablet 2 04/19/2018 Active levothyroxine (SYNTHROID) 150 mcg tablet Take 150 mcg by mouth once daily. 11/10/2021 Active albuterol HFA (PRO-AIR; VENTOLIN; PROVENTIL) 90 mcg/actuation inhaler Inhale 2 Puffs by mouth every 4 hours if needed for Shortness Of Breath. 07/30/2023 Active acetaminophen (TYLENOL EXTRA STRGTH) 500 mg tablet Take 1,000 mg by mouth every 6 hours if needed for Pain. 09/17/2022 Active glimepiride (AMARYL) 4 mg tablet Take 4 mg by mouth once daily with a meal. 09/17/2022 Active pravastatin (PRAVACHOL) 40 mg tablet Take 40 mg by mouth once daily with evening meal. 09/17/2022 Active HYDROcodone-acetami nophen (5-325 mg/tablet)Indicatio ns:Malignant neoplasm of central portion of left breast in female, estrogen receptor positive (HC) Take 1-2 Tablets by mouth every 4 hours if needed for Pain. Max acetaminophen dose: 4000 mg in 24 hrs. 20 Tablet 09/08/2023 Active dulaglutide (Trulicity) 4.5 mg/0.5 mL subcutaneous pen Inject 4.5 mg subcutaneous once weekly. 6 mL 3 07/30/2023 Active dulaglutide (Trulicity) 3 mg/0.5 mL subcutaneous pen Inject 4.5 mg subcutaneous once weekly. 07/30/2023 03/22/20 24 Discontinu ed(*Medica tion adjustment ) Active Problems Problem Noted Date Diagnosed Date Multinodular goiter 03/14/2015 Alice's thyroiditis 03/14/2015 Menorrhagia with irregular cycle 10/01/2014 Tobacco dependence 04/20/2013 Squamous cell carcinoma 06/30/2012 Overview: x2 on back (right and left) Mixed hyperlipidemia 02/11/2012 Colon polyps 07/18/2010 Overview: Colonoscopy 06/2010 polyps Colonscopy 06/22/2017 hyperplastic polyps Intestinal infection due to Clostridium difficil e 12/31/2008 Gastroesophageal reflux disease with esophagitis Resolved Problems Problem Noted Date Diagnosed Date Resolved Date Squamous cell carcinoma in situ of skin 04/11/2012 07/01/2012 Overview: 2012, right upper back. Seborrheic keratosis 03/08/2012 012 Encounters Date Type Department Care Team Description 03/11/2024 2:41 PM CDT - 03/11/2024 6:06 PM CDT Emergency [address] [address] Skinny Hyatt MD Abdominal pain, unspecified abdominal location (Primary Dx) Discharge Disposition: Home Self Care 03/11/2024 Travel from Last 3 Months Immunizations Name Administration Dates Next Due Influenza, IIV3 (Age >=3 years) 08/18/2013 Influenza, IIV4 08/22/2017,09/25/2014 Tdap 02/11/2012,08/13/2008 Family History Medical History Relation Name Comments Cancer-prostate Father Cancer-breast Maternal Aunt Cancer-breast Maternal Grandmother Cancer Mother lung Heart Disease Mother NM Cancer-breast Sister Relation Name Status Comments Father Maternal Aunt Maternal Grandmother Mother Sister Alive Social History Tobacco Use Types Packs/Day Years Used Date Smoking Tobacco: Every Day Cigarettes 0.3 34 Smokeless Tobacco: Never Tobacco Cessation:Ready to Q uit: No; Counseling Given: Yes Alcohol Use Standard Drinks/Week Comments Yes 1.7 (1 standard drink = 0.6 oz p ure alcohol) social Sex and Gender Information Value Date Recorded Sex Assigned at Not on file Gender Identity Not on file Sexual Orientation Not on file Obstetrics History Para Term AB IAB SAB Ectopic Multiple Livin g Live Births 3 3 3 3 Date Outcome GA Total Labor Labor/2nd/3rd Weight Sex Delivery Anes PTL Kerry A1 A5 Name Cl in Term Term Term Last Filed Vital Signs Vital Sign Reading Time Taken Comments Blood Pressure 113/72 03/11/2024 5:33 PM CDT Pulse 93 03/11/2024 5:33 PM CDT Temperature 36.4 ??C (97.5 ??F) 03/11/2024 2:15 PM CD T Respiratory Rate 20 03/11/2024 2:15 PM CDT Oxygen Saturation 100% 03/11/2024 5:33 PM CDT Inhaled Oxygen Concentration - - Weight 83.9 kg (185 lb) 03/11/2024 2:14 PM CDT Height 167.6 cm (5' 6) 03/11/2024 2:14 PM CDT Body Mass Index 29.86 03/11/2024 2:14 PM CDT Plan of Treatment Health Maintenance Due Date Last Done Comments HIV for age 15-65 1981 Hepatitis C screening for age 18-79 01/27/1984 Zoster (shingles) series for age 50+ (1 of 2) 01/27/2016 Mammogram for age 45-75 09/30/2018 09/30/20 17, 07/06/2016, 02/11/2012, Additional history exists Depression screening for age 12+ 11/29/2018 11/29/2017, 08/18/2017, 12/22/2016, Additional history exists BMI (ht and wt on same day) for age 18+ 07/12/2019 07/12/2018, 03/18/2018, 03/07/2018, Additional history exists Tetanus booster 02/10/2022 02/11/2012, 04/22 (Postponed), 08/13/2008 Lipids for age 45-75 09/20/2022 09/20/2017, 02/11/2012, 04/23/2011 COVID-19 vaccine series ( season) 2023 09/17/2021, 08/20/2021 Influenza for age 50-64 07/23/2024 08/22/20 17, 09/25/2014, 08/18/2013 Colonoscopy through age 75 03/02/202503/02, 07/02/2017, 07/15/2010 Tdap Completed 02/11/2012, 08/13/2008 Pneumococcal series for age 6-64 Aged Out No longer eligible based on patient's age to complete this topic Goals Goal Patient Goal Type Associated Problems Recent Progress Patient-Stated? Author BLOOD PRESSURE - MAINTAINS BP less than 140/90 Blood Pressure No Jaron Robert MD Procedures Procedure Name Priority Date/Time Associated Diagnosis Comments CT ABDOMEN PELVIS W STAT 03/11/2024 4 :26 PM CDT LACTATE VENOUS STAT 03/11/2024 2:37 PM CDT LIPASE FLO 03/11/2024 2:36 PM CDT HEPATIC FUNCTION PANEL FLO 03/11/2024 2:36 PM CDT CBC WITH AUTO DIFFERENTIAL STAT 03/11/2024 2:36 PM CDT CBC WITH AUTO DIFFERENTIAL STAT 03/11/2024 2:36 PM CDT BASIC METABOLIC PANEL STAT 03/11/2024 2:36 PM CDT COLONOSCOPY 03/02/2022 10:26 AM CDT XR MAMMO BILAT SCREENING Routine 09/30/2017 2:10 PM HYDRAULIC PRESS IN OPERATOR Visit for screening mammogram LIPID PANEL Routine 09/20/2017 7:55 AM CDT Lipid screening from Last 3 Months or Most Recently Relevant to Health Maintenance Results * CT Abdomen Pelvis w IV (Oral Contrast NO) (03/11/2024 4:26 PM CDT) Anatomical Region Laterality Modality Abdomen, Pelvis, AORTA, LIVER, SPLEEN Computed Tomography Skinny Hyatt MD CT * LACTATE VENOUS (03/11/2024 2:37 PM CDT) Pathologist [facility] LACTATE,VENOUS 1.3 0.5 - 2.0 mmol/L 03/11/2024 3:[address] [facility] Blood BLOOD SPECIMEN / Unknown Add On / Unknown 03/11/2024 2:37 PM CDT 03/11/2024 3:23 PM CDT Skinny Hyatt MD CHEMISTRY Performing Organization Address City/State/[facility] Co de Phone Number [facility] [address] [phone] * (ABNORMAL) CBC WITH AUTO DIFFERENTIAL (03/11/2024 2:36 PM CDT) Pathologist [facility] WHITE BLOOD COUNT 14.9(H) 4.5 - 11.0 thou/cu mm 03/11/2024 2:41 PM [facility] RED BLOOD COUNT 5.89(H) 4.00 - 5.20 mil/cu mm 03/11/2024 2:41 PM [facility] HEMOGLOBIN 17.8(H) 12.0 - 16.0 g/dL 03/11/2024 2:41 PM [facility] HEMATOCRIT 54.5(H) 33.0 - 51.0 % 03/11/2024 2:41 PM [facility] MCV 93 80 - 100 fL 03/11/2024 2:41 PM [facility] MCH 30.2 26.0 - 34.0 pg 03/11/2024 2:41 PM [facility] MCHC 32.7 32.0 - 36.0 g/dL 03/11/2024 2:41 PM [facility] RDW 13.9 11.5 - 15.5 % 03/11/2024 2:41 PM [facility] PLATELET COUNT 334 140 - 440 thou/cu mm 03/11/2024 2:41 PM [facility] MPV 10.0 6.5 - 11.0 fL 03/11/2024 2:41 PM [facility] % NEUT 64.0 % 03/11/2024 2:41 PM [facility] % LYMPH 28.7 % 03/11/2024 2:41 PM [facility] % MONO 5.4 % 03/11/2024 2:41 PM [facility] % EOS 1.8 % 03/11/2024 2:41 PM [facility] % BASO 0.1 % 03/11/2024 2:41 PM [facility] ABSOLUTE NEUTROPHILS 9.6(H) 1.7 - 7.0 thou/cu mm 03/11/2024 2:41 PM [facility] ABSOLUTE LYMPHOCYTES 4.3(H) 0.9 - 2.9 thou/cu mm 03/11/2024 2:41 PM [facility] ABSOLUTE MONOCYTES 0.8 <0.9 thou/cu mm 03/11/2024 2:41 PM [facility] ABSOLUTE EOSINOPHILS 0.3 <0.5 thou/cu mm 03/11/2024 2:41 PM [facility] ABSOLUTE BASOPHILS 0.0 <0.3 thou/cu mm 03/11/2024 2:41 PM [facility] Blood BLOOD SPECIMEN / Unknown Venipuncture / Unknown 03/11/2024 2:36 PM CDT 03/11/2024 2:37 PM [facility] - 03/11/2024 2:41 PM CDT RN to order if patient presents with abdominal pain. Owa Ed Triage HEMATOLOGY [facility] [address] [phone] * LIPASE (03/11/2024 2:36 PM CDT) LIPASE 17.1 13.0 - 60.0 IU/L 03/11/2024 3:[address] [facility] Blood BLOOD SPECIMEN / Unknown Venipuncture / Unknown 03/11/2024 2:36 PM CDT 03/11/2024 2:37 PM CDT Skinny Hyatt MD CHEMISTRY [facility] [address] [place] [address] * (ABNORMAL) HEPATIC FUNCTION PANEL (03/11/2024 2:36 PM CDT) ALBUMIN 4.4 4.0 - 4.9 g/dL 03/11/2024 3:[address] [facility] PROTEIN,TOTAL 8.1(H) 6.0 - 8.0 g/dL 03/11/2024 3:[address] [facility] BILIRUBIN,TOTAL 0.5 0.0 - 1.2 mg/dL 03/11/2024 3:[address] [facility] BILIRUBIN,DIRECT <0.2 0.0 - 0.3 mg/dL 03/11/2024 3:[address] [facility] BILIRUBIN,INDIRE CT 03/11/2024 3:[address] [facility] Comment:Unable to calculate, Direct Bili <0.2 ALK PHOSPHATASE 88 35 - 104 IU/L 03/11/2024 3:[address] [facility] ALT (SGPT) <5(L) 10 - 35 IU/L 03/11/2024 3:[address] [facility] AST (SGOT) 25 10 - 35 IU/L 03/11/2024 3:[address] [facility] Blood BLOOD SPECIMEN / Unknown Venipuncture / Unknown 03/11/2024 2:36 PM CDT 03/11/2024 2:37 PM CDT Skinny Hyatt MD CHEMISTRY [facility] [address] [phone] * (ABNORMAL) BASIC METABOLIC PANEL (03/11/2024 2:36 PM CDT) SODIUM 136 136 - 145 mmol/L 03/11/2024 3:13 PM [facility] POTASSIUM 4.6 3.5 - 5.1 mmol/L 03/11/2024 3:13 PM [facility] CHLORIDE 98 98 - 107 mmol/L 03/11/2024 3:13 PM [facility] CO2,TOTAL 21(L) 22 - 29 mmol/L 03/11/2024 3:13 PM [facility] ANION GAP 17 5 - 18 03/11/2024 3:13 PM [facility] GLUCOSE 182(H) 70 - 99 mg/dL 03/11/2024 3:13 PM [facility] CALCIUM 9.9 8.6 - 10.0 mg/dL 03/11/2024 3:13 PM [facility] BUN 13 6 - 20 mg/dL 03/11/2024 3:13 PM [facility] CREATININE 0.96(H) 0.50 - 0.90 mg/dL 03/11/2024 3:13 PM [facility] BUN/CREAT RATIO 14 10 - 20 4 3:13 PM [facility] eGFR 69(L) >90 mL/min/1.7 3m2 03/11/2024 3:13 PM [facility] Comment:As of 2022, eG FR is calculated by the CKD-EPI creatinine equation without race adjustment. ??eGFR can be influenced by muscle mass, exercise, and diet. ??The reported eGFR is an estimation only and is only applicable if the renal function is stable. Blood BLOOD SPECIMEN / Unknown Venipuncture / Unknown 03/11/2024 2:36 PM CDT 03/11/2024 2:37 PM CDT Owa Ed Triage CHEMISTRY [facility] [address] [facility] [address] * COLONOSCOPY (03/02/2022 10:26 AM CDT) 03/02/2022 10:2 6 AM CDT Narrative Transcriptions Elena Munoz MD - 03/02/2022 1:32 PM CDT Patient Name: Caroline White Procedure Date: 03/02/2022 Gender: Female Date of : 1965 Admit Type: Ambulatory Procedure: Colonoscopy Proceduralist: Elena Geurrero MD Referring MD: Elena Guerrero MD Indications/Pre-Op Diagnosis: High risk colon cancer surveillance:Personal history of colonic polyps, Family history of rectal cancer in a first-degree relativebefore age 60 years Medications: Monitored Anesthesia Care Procedure Description: The procedure, indications, potential complications, (bleeding, perforation, infection, adverse medication reaction, missed lesionsor polyps) and alternatives available were explained to the patient, who appeared to understand and indicated this. Opportunity for questionswas provided and informed consent obtained. The colonoscope was passed through the anus and advanced to thececum, identified by appendiceal orifice and ileocecal valve. Thecolonoscopy was performed without difficulty. The patient tolerated the procedure well. The quality of the bowel preparation was evaluated using theBBPS ([place] Bowel Preparation Scale) with scores of: Right Colon = 3, Transverse Colon = 3 and Left Colon = 3 (entire mucosa seen well withno residual staining, small fragments of stool or opaque liquid). Thetotal BBPS score equals 9. Complications: No immediate complications. Estimated Blood Loss & Specimen: Estimated blood loss: none. Specimen collected: None Findings: Scattered diverticula were found in the sigmoid colon. The exam was otherwise without abnormality on direct and retroflexion views. Impressions/Post-Op Diagnosis: - Diverticulosis in the sigmoid colon. - The examination was otherwise normal on direct and retroflexionviews. - No specimens collected. Recommendation: - Repeat colonoscopy in 5 years for surveillance. Moderate Sedation: see anesthesia report Elena Guerrero MD 03/02/2022 1:32:14 PM This report has been signed electronically. Note Initiated On: 03/02/2022 10:26 AM Elena Tellez MD PROCEDURE O RD * XR MAMMO BILAT SCREENING (09/30/2017 2:10 PM HYDRAULIC PRESS IN OPERATOR) Anatomical Region Laterality Modality BREASTS, Breast Left, Breast Right Bilateral Mammography Impressions 10/04/2017 11:46 AM HYDRAULIC PRESS IN OPERATOR ??There is no radiographic evidence for malignancy. ??Recommend annual mammograms. A lay language report of this examination will be provided to the patient. MAMMOGRAM ASSESSMENT: ??ACR 1 Negative Narrative 10/04/2017 11:46 AM HYDRAULIC PRESS IN OPERATOR XR MAMMO BILAT SCREENING [[id number]] CLINICAL HISTORY: ??This is an asymptomatic 52 y.o. patient. INDICATION FOR EXAM: Mammogram Screening. TECHNIQUE: CC & MLO views were obtained. ??This digital study was evaluated with the assistance of Computer-Aided Detection. COMPARISON FILM: Yes 07/06/16 TRAN DIAGNOSTIC IMAGING FINDINGS: ??Mammographically, the breast tissue is heterogeneously dense, which could obscure detection of small masses. There are no dominant masses, suspicious micro calcifications or areas of architectural distortion. Jaron Robert MD MAMMO * (ABNORMAL) LIPID PANEL (09/20/2017 7:55 AM CDT) CHOLESTEROL,TOTAL 299(H) 100 - 199 mg/dL 09/20/2017 9:08 AM CDT [facility] TRIGLYCERIDES 466(H) <150 mg/dL 09/20/2017 9:08 AM CDT [facility] HDL CHOLESTEROL 43 >40 mg/dL 7 9:08 AM CDT [facility] NON-HDL CHOLESTEROL 256(H) <145 mg/dl 09/20/2017 9:08 AM CDT [facility] CHOL/HDL RATIO 6.95(H) <4.50 09/20/2017 9:08 AM CDT [facility] LDL CHOLESTEROL 7 9:08 AM CDT [facility] Comment:Invalid LDL when Tri g >400. PROVIDER ORDERED STATUS RANDOM 09/20/2017 9:08 AM CDT [facility] Blood BLOOD SPECIMEN / Unknown Venipuncture / Unknown 09/20/2017 7:55 AM CDT 09/20/2017 7:55 AM CDT [place] [address] from Last 3 Months or Most Recently Relevant to Health Maintenance Advance Directives * Full Code (Latest Code Status on File) Date Activated Date Inactivated Comments 09/08/2023 9:04 AM 09/08/2023 4:46 PM Question Answer Comments Code Status Discussion: Unable to Assess Preferences, Provider to review later * Full Code Date Activated Date Inactivated Comments 03/02/2022 10:41 AM 03/02/2022 4:15 PM Question Answer Comments Code Status Discussion: Not Discussed * Full Code Date Activated Date Inactivated Comments 03/22/2018 2:01 PM 03/22/2018 7:28 PM Question Answer Comments Code Status Discussion: Discussed * Full Code Date Activated Date Inactivated Comments 07/02/2017 7:27 AM 07/02/2017 11:44 AM * Full Code Date Activated Date Inactivated Comments 10/02/2014 1:30 PM 10/03/2014 12:28 AM Care Teams Senior Quality Assurance Analyst Relationship Specialty Start Date End Date Sea Jha MBBS [address] [place] [address] PCP - General Family Practice 03/11/24
--- OUTSIDE RECORDS SUMMARY | 2024-03-28 09:13 | XMS_ITS | Encounter Summary ---
Author Name Unknown Organization [facility] Address [address] [place] [address] Care Team Providers Care Weeder Thinner Name Role Phone Sea Jha M.D. Primary Care P marcelinoder Encounter Details Date Type Department Care Team (Late st Contact Info) Description 11/18/2023 Clinical Communication Department of Family Medicine, [facility], in [place], [place] [address] [place] [address] Sea Jha M.B.B.S., MJohanna [address] [place] [address] Social History Tobacco Use Types Packs/Day Years [...] often do you attend chur ch or mandaeism services? More than 4 times per year 11/10/2021 Do you belong to any clubs o r organizations such as cheondoism groups, unions, fraternal or athletic groups, or [...] [facility] of Occupat ional [facility] - Occupational Stress Questionnaire Answer Date [...] place to sleep or slept in a correction (including now)? No 11/10/2021 Nutrition Answer Date [...] Sex Assigned at Female 11/06/2021 3:47 PM ESCAPEMENT MATCHER Gender Identity Female 04/07/2020 3:36 PM CDT Sexual Orientation Straight 04/07/2020 3: 36 PM CDT documented as of this encounter Miscellaneous Notes * Telephone Encounter - Geneva Gasca L.P.N. - 11/19/2023 9:58 AM ESCAPEMENT MATCHER I spoke with Caroline and she thinks she has the answer to why her numbers for her A1C is elevated . She also thinks this could be why her Thyroid level is high . She has triple negative cancer She is receiving Chemo every three weeks it is caller the [facility] She needs to take steroids for 4 days when doing the chemo. She reports that when treatment are completed her glucose numbers are good She will be back in [place] When the treatments are completed in January PEMENT MATCHER * Telephone Encounter - Bessie Winkler - 11/18/2023 11:39 AM CST Left message for patient to return call to clinic. Does the patient need to speak to nursing? yes Action needed: Please call the patient. She normally follows with Dr. Jha. Her TSH is up significantly. Is she taking her medication? Also her hemoglobin A1c is elevated I would like her to come in to be seen by Dr. Jha. If she is taking her levothyroxine as prescribed I should increase it. PEMENT MATCHER documented in this encounter Plan of Treatment Not on file documented as of this encounter Visit Diagnoses Not on filedocumented in this encounter Additional Health Concerns Assessment Noted Time PHQ-9 Depression Total Score: 0 10/10/20 14 2:25 PM ESCAPEMENT MATCHER documented as of this encounter Care Teams Weeder Thinner Relationship Specialty Start Date End Date Sea Jha M.B.B.S., MCelina. [address] [place] [phone] PCP - General Family Medicine 06/03/23 documented as of this encounter
--- OUTSIDE RECORDS SUMMARY | 2024-03-28 09:13 | XMS_ITS | Encounter Summary ---
Author Name Unknown Organization [facility] Address [address] [place] [address] Care Team Providers Care B2B Sales Consultant Name Role Phone Sea Jha M.D. Primary Care P marcelinoder Reason for Referral * Outpatient (Routine) - Closed Specialty Diagnoses / Procedures Referred By Comfort ellsworth Referred To Contact Family Medicine Diagnoses Hyperlipidemia Mixed Hypothyroidism Acquired Diabetes Mellitus Type 2 Hyperglycemia (HCC) Malignant Neoplasm Of Lung Middle Lobe Or Bronchus (HCC) Nicotine Dependence Cigarettes Obesity Body Mass Index 30-39.9 Adult Sea Jha M.B.B.S., M.D. [address] [place] [address] [facility] Referral ID Status Reason Start Date Expiration Date Visits Re quested Visits Authorized [id number] Closed 12/28/2023 06/28/2025 1 1 ERY AID Encounter Details Date Type Department Care Team (Late st Contact Info) Description 12/28/2023 Clinical Communication Department of Family Medicine, [facility], in [place], [place] [address] [place] [address] Sea Jha M.B.B.S., M.D. [address] [place] [address] Social History Tobacco Use Types [...] often do you attend chur ch or islam services? More than 4 times per year 11/10/2021 Do you belong to any clubs o r organizations such as worship groups, unions, fraternal or athletic groups, or [...] Recorded PHQ-2 Score 0 03/01/2023 [facility] - Occupational Stress Questionnaire Answer Date [...] Sex Assigned at Female 11/06/2021 3:47 PM SURGERY AID Gender Identity Female 04/07/2020 3:36 PM CDT Sexual Orientation Straight 04/07/2020 3: 36 PM CDT documented as of this encounter Miscellaneous Notes * Telephone Encounter - Esperanza Canales - 12/28/2023 3:14 PM SURGERY AID Patient is scheduled for follow up on 03/03 ERY AID * Telephone Encounter - Esperanza Canales - 12/28/2023 12:56 PM SURGERY AID Labs are linked ERY AID * Telephone Encounter - Bessie Lou R.N. - 12/28/2023 10:44 AM SURGERY AID Primary Care Diabetes Review Completed patient diabetes review on 12/28/2023, for Caroline White, a 58 y.o. female, currentlypaneled to Vannessa Moore M.D. Summary of Chart Review Recent Labs 11/16/23 0855 07/29/23 0920 03/29/23 1030 12/09/22 0924 08/31/22 1049 05/11/22 0916 11/10/21 0813 11/10/21 0812 04/24/21 1351 HGBA1C 9.4 H 9.7 H 8.6 H 8.6 H -- 11.6 H 6.4 H -- 12.6 H LDLCALC -- -- -- -- 179 H -- -- CANCELED -- BP Readings from Last 2 Encounters: 09/01/23 121/85 07/30/23 114/82 Social History Tobacco Use Smoking Status Every Day Packs/day: 0.50 Years: 30.00 Additional pack years: 0.00 Total pack years: 15.00 Types: Cigarettes Start date: 11/30/1982 Smokeless Tobacco Never Upon today's chart review, patient is not meeting the following D5 criteria: A1C Patient does not have a visit scheduled in Primary Care within the next 3 months. Recent Updates to Diabetes Management Plan The following recommendations regarding patient's diabetes management plan have been made within the last 12 months: No changes to patient's diabetes management plan have been recommended within the last 12 months. Recommended follow-up RN will: Contact PCP to: Approve orders for Lipid Panel and Provider visit. A1C is scheduled 03/01/24 . Additional Notes Additional notes: TSH was high when last checked, do you want that rechecked? Pended also. ERY AID documented in this encounter Plan of Treatment Scheduled Referrals Name Type Priority Associated Diagnoses Orde r Schedule Family Medicine office visit (clinic) Outpatient Referral Routine Hyperlipidemia Mixed Hypothyroidism Acquired Diabetes Mellitus Type 2 Hyperglycemia (HCC) Malignant Neoplasm Of Lung Middle Lobe Or Bronchus (HCC) Nicotine Dependence Cigarettes Obesity Body Mass Index 30-39.9 Adult Expected: 03/01/2024, Expires: 03/27/2025 documented as of this encounter Results * (ABNORMAL) Lipid Panel [...] LAB BLO OD ADD-ON Performing Organization Address [facility] Co de Phone Number [facility] [address] [place] [phone], [facility] [place] [address] [place] [address] * S-TSH (Thyroid-Stimulating Hormone - Sensitive) (03/01/2024 9:31 AM CDT) TSH, Sensitive 3.2 0.3 - 4.2 mIU/L 03/01/2024 2:22 PM CDT OW[facility] Blood (Blood, Venous) 03/01/2024 9:31 AM CDT 03/01/2024 1:32 PM CDT Sea Hurd M.D. LAB BLO OD ADD-ON Performing Organization Address City/[facility]/ZIP Co de Phone Number [facility] [address] [place] [address], [facility] [place] [address] [place] [address] documented in this encounter Visit Diagnoses Diagnosis Diabetes Mellitus Type 2 Hyperglycemia (HCC)- Primary Hyperlipidemia Mixed Hypothyroidism Acquired Malignant Neoplasm Of Lung Middle Lobe Or Bronchus (HCC) Nicotine Dependence Cigarettes Obesity Body Mass Index 30-39.9 Adult documented in this encounter Additional Health Concerns Assessment Noted Time PHQ-9 Depression Total Score: 0 10/10/20 14 2:25 PM SURGERY AID documented as of this encounter Care Teams B2B Sales Consultant Relationship Specialty Start Date End Date Sea Jha M.B.B.S., M.D. [address] [place] [address] [place] [address] PCP - General Family Medicine 06/03/23 documented as of this encounter
--- OUTSIDE RECORDS SUMMARY | 2024-03-28 09:13 | XMS_ITS | Encounter Summary ---
Author Name Unknown Organization [facility] Address [address] [place] [address] Care Team Providers Care Chainstitch Zipper Setter Name Role Phone Sea Jha M.D. Primary Care P marcelinoder Reason for Visit * Reason Comments Follow-up Labs done on ay. Has a aaron on left forearm that will not go away. Had IV chemo there. Neuropathy in both feet and gabapentin is not working. Would like to try lyrica. * Outpatient (Routine) - Closed Specialty Diagnoses / Procedures Referred By Contsherry t Referred To Contact Family Medicine Diagnoses Hyperlipidemia Mixed Hypothyroidism Acquired Diabetes Mellitus Type 2 Hyperglycemia (HCC) Malignant Neoplasm Of Lung Middle Lobe Or Bronchus (HCC) Nicotine Dependence Cigarettes Obesity Body Mass Index 30-39.9 Adult Sea Jha M.B.B.S., M.D. [address] [place] [address] [facility] Referral ID Status Reason Start Date Expiration Date Visits Re quested Visits Authorized [id number] Closed 12/28/2023 06/28/2025 1 1 Encounter Details Date Type Department Care Team (Latest Contact Info) Description 03/03/2024 10:30 AM CDT Office Visit Department of Family Medicine, [facility], in [place], [place] [address] [place] [address] Sea Jha M.B.B.S., M.D. [address] [place] [address] Diabetes Mellitus Type 2 Hyperglycemia (HCC) (Primary Dx); Hyperlipidemia Mixed; Hypothyroidism Acquired; Malignant Neoplasm Of Lung Middle Lobe Or Bronchus (HCC); Nicotine Dependence Cigarettes; Obesity Body Mass Index 30-39.9 Adult; Neuropathy Peripheral Social History Tobacco Use Types Packs/Day Years [...] How often do you attend chur or sabianist services? More than 4 times per year 11/10/2021 Do you belong to any clubs o r organizations such as yazdanism groups, unions, fraternal or athletic groups, or [...] Answer Date Recorded PHQ-2 Score 0 03/03/2024 [facility] - Occupational [...] Sex Assigned at Female 11/06/2021 3:47 PM RECREATION THERAPY AIDE Gender Identity Female 04/07/2020 3:36 PM CDT Sexual Orientation Straight 04/07/2020 3: 36 PM CDT documented as of this encounter Last Filed Vital Signs Vital Sign Reading Time Taken Comments Blood Pressure 118/85 03/03/2024 10:27 AM CDT average of 3 Pulse 91 03/03/2024 10:27 AM CDT Temperature 35.8 ??C (96.5 ??F) 03/03/2024 1 0:27 AM CDT Respiratory Rate 16 03/03/2024 10:2 7 AM CDT Oxygen Saturation - - Inhaled Oxygen Concentration - - Weight 84.4 kg (186 lb 1.1 oz) 03/03/2024 10:27 AM CDT Height 169 cm (5' 6.54) 03/03/2024 10: 27 AM CDT with shoes on Body Mass Index 29.55 03/03/2024 10:27 AM CDT documented in this encounter Progress Notes * Sea Jha M.B.B.S., MJohanna - 03/03/2024 10:30 AM CDT SUBJECTIVE CHIEF COMPLAINT / REASON FOR VISIT Caroline White is a 59 y.o. female who presents for evaluation of Follow-up (Labs done on Wednesday. Has a aaron on left forearm that will not go away. Had IV chemo there. Neuropathy in both feetand gabapentin is not working. Would like to try lyrica. ). HISTORY OF PRESENT ILLNESS Caroline White is a 59-year-old female with multiple comorbidities here for follow-up. Patient was diagnosed with lung cancer in 2019. She was also diagnosed with breast cancer in 2022 and is status post lumpectomy and chemotherapy. Since chemo, she has had significant burning pain andnumbness involving her extremities. She has been on gabapentin with no improvement in her symptoms. She has a history of type 2 diabetes and is currently taking Trulicity 4.5 mg weekly. She has no longer on steroids over the last 2 months and continuous glucose monitoring shows blood sugar consistently under 200. She is on levothyroxine for hypothyroidism and reports consistency with this as well. She continues to smoke with no intention of quitting at this time. The following portions of the patient's history were reviewed and updated as appropriate: allergies, current medications, family history, medical history, social history, surgical history, and problem list. REVIEW OF SYSTEMS Pertinent items are noted in HPI. OBJECTIVE VITAL SIGNS BP 118/85 (BP Location: Left arm, Patient Position: Sitting, Cuff Size: Regular) Comment: average of 3 Pulse 91 Temp (!) 35.8 ??C (Temporal) Resp 16 Ht 169 cm Comment: with shoes on Wt 84.4kg BMI 29.55 kg/m?? Body mass index is 29.55 kg/m??. PHYSICAL EXAMINATION General appearance: alert, cooperative, and no distress Head: normocephalic, without obvious abnormality Eyes: conjunctivae/corneas clear Lungs: clear to auscultation bilaterally Heart: regular rate and rhythm Extremities: extremities normal, warm and well perfused ASSESSMENT / PLAN #1 Hyperlipidemia Mixed #2 Hypothyroidism Acquired #3 Diabetes Mellitus Type 2 Hyperglycemia (HCC) #4 Malignant Neoplasm Of Lung Middle Lobe Or Bronchus (HCC) #5 Nicotine Dependence Cigarettes #6 Obesity Body Mass Index 30-39.9 Adult #7 Neuropathy Peripheral Caroline is back in [place] after spending the winter in [place]. 1. She will follow-up with her oncologist next week. She is on surveillance for breast cancer and ahistory of lung cancer. 2. A1c has improved to 7.3. It seems being off steroids has helped her blood sugar control. She hasmaintaining a low-carbohydrate diet. Will make no changes to her current Trulicity and continue to monitor her A1c. 3. TSH is within normal limits. Will make no changes to her current dose of levothyroxine. 4. She is dealing with significant peripheral neuropathy. Will discontinue gabapentin and start josé pregabalin. Will consider increasing the dose if tolerable. 5. Patient is on pravastatin which will continue for now. 6. She has no interest in quitting smoking. Hopefully this will change going forward. documented in this encounter Plan of Treatment Not on file documented as of this encounter Visit Diagnoses Diagnosis Diabetes Mellitus Type 2 Hyperglycemia (HCC)- Primary Hyperlipidemia Mixed Hypothyroidism Acquired Malignant Neoplasm Of Lung Middle Lobe Or Bronchus (HCC) Nicotine Dependence Cigarettes Obesity Body Mass Index 30-39.9 Adult Neuropathy Peripheral documented in this encounter Additional Health Concerns Assessment Noted Time PHQ-9 Depression Total Score: 0 10/10/20 14 2:25 PM RECREATION THERAPY AIDE documented as of this encounter Care Teams Chainstitch Zipper Setter Relationship Specialty Start Date End Date Sea Jha M.B.B.S., M.D. [address] [place] [phone] PCP - General Family Medicine 06/03/23 documented as of this encounter
[2024-03-28 09:56] LABS: Creatinine* 0.7 mg/dL (0.5-1.5); Estimated Glomerular Filt Rate 100 ml/min
--- NOTE | 2024-03-28 10:00 | CT_ITS ---
Patient: JESSIKA RAYGOZA Facility:?[facility] RIS Patient ID:?[id number] Site Patient ID:?[id number]. Site :?[id number] Study:?CT-Chest/Abd/Pelvis W/ 102CC IOSVUE 370-03/28/2024 10:32:32 AM Ordering Physician:KAILEE Final Report: INDICATION: Right lung adenocarcinoma. History of thyroid cancer and left breast cancer. Benign adrenal mass. TECHNIQUE: Volumetric helical scanning of the chest, abdomen and pelvis was performed with 102 cc of Isovue 370 contrast material IV. Coronal and sagittal reconstructions were obtained. COMPARISON: Chest CT of 08/31/2023 FINDINGS: CHEST: Anterior right lung postop changes are again demonstrated. Post treatment perihilar right lower lobe opacity is mildly increased in comparison to the previous examination. No new pulmonary nodule is evident. No is mediastinal or left hilar lymphadenopathy is evident. Emphysema is again demonstrated. No acute infiltrate or pleural effusion is demonstrated. The heart is normal in size. ABDOMEN/PELVIS: The liver is mildly enlarged. Several small liver cysts are again demonstrated. Postop changes of cholecystectomy are again demonstrated. The bile ducts are within normal limits. No lymphadenopathy is evident. No free fluid is demonstrated. The spleen, adrenal glands and pancreas are negative. The kidneys are unremarkable. The bowel is unremarkable except for sigmoid diverticulosis. Postop changes of hysterectomy are again demonstrated. A normal left ovary is again demonstrated. A right ovary is not identified with certainty. No lytic or significant blastic bone lesion is identified. IMPRESSION: 1. Post treatment perihilar right lower lobe opacity mildly increased in comparison to the prior study. No new metastatic lesion identified. 2. Anterior right lung postop changes, as before. 3. Emphysema. 4. Mild hepatomegaly and several small liver cysts, as before. 5. Post cholecystectomy and hysterectomy. Please note that all CT scans at this facility use dose modulation, iterative reconstruction, and/or weight-based dosing when appropriate to reduce radiation dose to as low as reasonably achievable. Dictated by James Justice MD @ 03/29/2024 8:28:11 AM Signed by:?James Justice MD @03/29/2024 8:28:11 AM (Electronic Signature)
== END 2024-03-28 09:10 | disposition home or self-care (01) ==
LOC: CT 09:09
PROVIDERS: PCP Family Medicine; Visit Provider Internal Medicine Hematology & Oncology
DX: C34.91 Malignant neoplasm of unspecified part of right bronchus or lung (principal); C50.912 Malignant neoplasm of unspecified site of left female breast; J43.9 Emphysema, unspecified; K76.89 Other specified diseases of liver; C73 Malignant neoplasm of thyroid gland; Z72.0 Tobacco use
CPT/HCPCS: 36415; 71260; 74177; 82565; Q9967

== ENCOUNTER 2024-06-28 15:26 | Outpatient (CLI) | payer BC, SELFPAY ==
--- OUTSIDE RECORDS SUMMARY | 2024-06-28 15:29 | XMS_ITS | Encounter Summary ---
Author Organization [facility] Address [address] [place] [address] Care Team Providers Care Leasing Associate Name Role Phone Sea Jha M.D. Primary Care P elio Encounter Details Date Type Department Care Team (Latest Contact Info) Description 06/19/2024 1:59 PM CDT - 06/19/2024 11:59 PM CDT Hospital Encounter Department of Laboratory Medicine in [place], [place] [address] [place] [address] Sea Jha M.B.B.S., MJohanna [address] [place] [address] Diabetes Mellitus Type 2 Hyperglycemia (HCC) Discharge Disposition: Home or Self Care Social History Tobacco Use Types Packs/Day Years Used Date Smoking Tobacco: Every Day Cigarettes 0.5 41.6 Started: 11/30/1982 Smokeless Tobacco: Never Alcohol Use Standard Drinks/Week Comments Not Currently 0 (1 standard drink = 0.6 oz pur e alcohol) [facility] Utilities Answer Date Recorded In the past 12 months has e [employer], gas, oil, or water [employer] threatened to shut off services in your home? No 04/26/2024 Humiliation, Afraid, Rape, and Kick questionnair e [...] How often do you attend chur or gnosticist services? More than 4 times per year 11/10/2021 Do you belong to any clubs o r organizations such as christianity groups, unions, fraternal or athletic groups, or [...] Answer Date Recorded PHQ-2 Score 0 03/03/2024 [facility] - Occupational Stress [...] exercise (like a brisk walk)? 0 days 04/26/2024 On average, how many minutes do you engage in exercise at this level? 0 min 04/26/2024 Hunger Vital Sign Answer Date Recorded Within the past 12 months, y ou worried that your food would run out before you got the money to buy more. Never true 04/26/20 24 Within the past 12 months, t he food you bought just didn't last and you didn't have money to get more. Never true 04/26/2024 PRAPARE - Transportation Answer Date Re corded In the past 12 months, has l ack of transportation kept you from medical appointments or from getting medications? No 03/2024 In the past 12 months, has l ack of transportation kept you from meetings, work, or from getting things needed for daily living? No 04/26/2024 Nutrition Answer Date Recorded On average, how many serving s of fruits and vegetables do you eat per day (serving size is equal to 1 cup or approximately the size of a tennis ball)? 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 I have a [facility] place to live 04/26/2024 Education Answer Date Recorded What is the highest level of school you have completed or the highest degree you have received? GED or equivalent Sex and Gender Information Value Date Recorded Sex Assigned at Female 11/06/2021 3:47 PM MASTER POLICE DETECTIVE Gender Identity Female 04/07/2020 3:36 PM CDT [...] every 7 (seven) days. 6 mL 3 05/12/2024 flash glucose scanning reader (FreeStyle Veronika 14 Day Marianna) miscIndications:Diabe betsy Mellitus Type 2 Hyperglycemia (HCC) USE WITH VERONIKA SENSOR 1 each 09/17/2022 flash glucose sensor kitIndications:Diabet es Mellitus Type 2 Hyperglycemia (HCC) Change sensor every 14 days. 6 kit 3 05/12/2024 ibuprofen (MOTRIN) 600 mg tablet Take 600 mg by mouth every 6 (six) hours as needed. 05/06/2024 levothyroxine (SYNTHROID, LEVOTHROID) 150 mcg tabletIndications:Hyp othyroidism Acquired Take levothyroxine 150 mcg Wednesday through Wednesday. 90 tablet 3 03/03/2024 levothyroxine (SYNTHROID, LEVOTHROID) 25 mcg tabletIndications:Hyp othyroidism Acquired Take 25 mcg on Wednesday and Wednesday. 90 tablet 3 03/03/2024 oxyCODONE-acetaminoph en (Percocet) 5-325 mg per tabletIndications:Pro longed Acute Pain/Traumatic Injury Take 1-2 tablets by mouth every 4 (four) hours as needed for pain Indication: Prolonged Acute Pain/Traumatic Injury. 15 tablet 05/12/2024 pravastatin (PRAVACHOL) 40 mg tabletIndications:Hyp erlipidemia Mixed Take 1 tablet (40 mg total) by mouth daily. 90 tablet 3 09/01/2023 pregabalin (LYRICA) 75 mg capsuleIndications:Di abetes Mellitus Type 2 With Diabetic Neuropathy (HCC) Take 1 capsule (75 mg total) by mouth 2 (two) times a day. 180 capsule 3 05/01/2024 05/01/2025 documented as of this encounter Miscellaneous Notes * Result Encounter Note - Sea Jha M.B.B.S., M.D. - 06/26/2024 1:20 PM CDT A1c shows no significant change from 3 months ago. Please continue with a low- carbohydrate diet. Please continue to be consistent with medications and exercise as tolerated. documented in this encounter Plan of Treatment Upcoming Encounters Date Type Department Care Team (Late st Contact Info) Description 07/05/2024 3:30 PM CDT Office Visit Department of Family Medicine, [facility], in [place], [place] [address] [facility] [place] [address] Sea Jha M.B.B.S., M.D. [address] [place] [address] documented as of this encounter Procedures Procedure Name Priority Date/Time Associated Diagnosis Comments HEMOGLOBIN A1C, B Routine 06/19/2024 2:0 7 PM CDT Diabetes Mellitus Type 2 Hyperglycemia (HCC) documented in this encounter Results * (ABNORMAL) Hemoglobin A1c (06/19/2024 2:07 PM CDT) Hemoglobin A1c, B 7.3(H) 4.2 - 5.6 % 06/19/2024 6:16 PM CDT OWAT Comment: Hemoglobin A1c values greater than or equal to 6.5 percent are diagnostic for diabetes mellitus. ??Diagnosis should be confirmed by repeat testing. ??In diabetic patients, HbA1c goals should be discussed with healthcare provider. Blood (Blood, Venous) 06/19/2024 2:07 PM CDT 06/19/2024 5:52 PM CDT Sea Hurd M.D. LAB BLO OD ADD-ON [facility] [address] [place] [address], [facility] [place] [address] [place] [address] documented in this encounter Visit Diagnoses Diagnosis Diabetes Mellitus Type 2 Hyperglycemia (HCC) documented in this encounter Additional Health Concerns Assessment Noted Time PHQ-9 Depression Total Score: 0 10/10/20 14 2:25 PM MASTER POLICE DETECTIVE documented as of this encounter Care Teams Leasing Associate Relationship Specialty Start Date End Date Sea Jha M.B.B.S., M.D. [address] [place] [address] Tyesha Loyd, ADRIANA [phone] PCP - General Family Medicine 06/03/23 documented as of this encounter
--- OUTSIDE RECORDS SUMMARY | 2024-06-28 15:29 | XMS_ITS | Clinical Summary ---
Author Organization [facility] Address [address] [place] [address] Care Team Providers Care Lighting Director Name Role Phone Sea Jha M.D. Primary Care P elio Source Comments Patient records contain information from all sites at [facility]. For routine questions regarding patient records, call [phone] during business hours, M-F 8:00 AM - 5:00 PM Central Time. Record requests for emergency care only can be directed to [phone] at any time.[facility] Allergies Active Allergy Reactions Criticality Noted Date Comments Oxycodone GI intolerance Low 10/12/2019 Nausea/vomiting Has tolerated hydromorphone Medications Medication Sig Dispensed Refills Start Date End Date Status acetaminophen (TYLENOL) 500 mg tablet Take 2 tablets (1,000 mg total) by mouth every 6 (six) hours as needed for pain. 100 tablet 11 09/17/2022 Active flash glucose scanning reader (FreeStyle Veronika 14 Day Bascom) miscIndications:Mimi betes Mellitus Type 2 Hyperglycemia (HCC) USE WITH VERONIKA SENSOR 1 each 09/17/2022 Active pravastatin (PRAVACHOL) 40 mg tabletIndications:H yperlipidemia Mixed Take 1 tablet (40 mg total) by mouth daily. 90 tablet 3 09/01/2023 Active levothyroxine (SYNTHROID, LEVOTHROID) 25 mcg tabletIndications:H ypothyroidism Acquired Take 25 mcg on Wednesday and Wednesday. 90 tablet 3 03/03/2024 Active levothyroxine (SYNTHROID, LEVOTHROID) 150 mcg tabletIndications:H ypothyroidism Acquired Take levothyroxine 150 mcg Wednesday through Wednesday. 90 tablet 3 03/03/2024 Active pregabalin (LYRICA) 75 mg capsuleIndications: Diabetes Mellitus Type 2 With Diabetic Neuropathy (HCC) Take 1 capsule (75 mg total) by mouth 2 (two) times a day. 180 capsule 3 05/01/2024 Active ibuprofen (MOTRIN) 600 mg tablet Take 600 mg by mouth every 6 (six) hours as needed. 05/06/2024 Active oxyCODONE-acetamino phen (Percocet) 5-325 mg per tabletIndications:P rolonged Acute Pain/Traumatic Injury Take 1-2 tablets by mouth every 4 (four) hours as needed for pain Indication: Prolonged Acute Pain/Traumatic Injury. 15 tablet 05/12/2024 Active dulaglutide (Trulicity) 3 mg/0.5 mL injectionIndication s:Diabetes Mellitus Type 2 Hyperglycemia (HCC) Inject 0.75 mL (4.5 mg total) under the skin every 7 (seven) days. 6 mL 3 05/12/2024 Active flash glucose sensor kitIndications:Diab etes Mellitus Type 2 Hyperglycemia (HCC) Change sensor every 14 days. 6 kit 3 05/12/2024 Active Active Problems Problem Noted Date Diagnosed Date Malignant Neoplasm Of Breast Female Left 024 Cancer Staging:Pathologic stage from 09/08/2023:Stage IB(pT1c, pN0(sn), cM0, G3, ER-, WI-, HER2-) - Unsigned Obesity Body Mass Index [...] Date Diagnosed Date Resolved Date Thyroiditis Alice's 04/25/2021 12/2 Nodule Thyroid 04/24/2021 11/10/2021 Overview (04/24/2021): Added automatically from request for surgery [id number] Pain Shoulder Left 04/16/2020 1 Pulmonary Nodule Computed To mography Indeterminate 10/12/2019 02/05/2020 Nodule Pulmonary 09/25/2019 02/05/2020 Overview (09/25/2019): Added automatically from request for surgery [id number] Mass Adrenal 09/22/2019 04/09/2020 Overview (09/22/2019): Added automatically from request for surgery [id number] Gastroesophageal Reflux Dise ase With Esophagitis 08/14/2019 08/14/2019 Nodule Pulmonary Solitary 08/14/2019 Overview (08/20/2019): Per xray Jul 2019 / Right CT Chest Aug 17, 2019 suspicious nodule Right Depression Major Recurrent Mild 06/06/2012 08/14/2019 Overview (04/13/2017): Major depressive disorder, recurrent episode, Mild Encounters Date Type Department Care Team Description 06/27/2024 Orders Only [facility] Sea Jha M.BYaniraB.SYanira, MJohanna Diabetes Mellitus Type 2 Hyperglycemia (HCC) 06/26/2024 Orders Only Department of Laboratory Medicine in [address] [address] Sea Jha M.BYaniraB.SYanira, MJohanna Diabetes Mellitus Type 2 Hyperglycemia (HCC) (Primary Dx) 06/19/2024 1:59 PM CDT - 06/19/2024 11:59 PM CDT Hospital Encounter Department of Laboratory Medicine in [address] [address] Sea Jha M.B.B.SYanira, MJohanna Diabetes Mellitus Type 2 Hyperglycemia (HCC) Discharge Disposition: Home or Self Care 06/08/2024 Clinical Communication Department of Family Medicine, [facility], in [address] [place] [address] Sea Jha M.B.B.S., M.D. Communication 05/12/2024 10:00 AM CDT Office Visit Department of Family [facility], [facility], [address] [place] [address] Sea Jha M.B.B.S., M.D. Malignant Neoplasm Of Breast Female Left (HCC) (Primary Dx); Diabetes Mellitus Type 2 Hyperglycemia (HCC) 05/08/2024 Clinical Communication Department of [facility], in [address] [place] [address] Katerin Gomez R.N. Post Hospital Follow-up 05/01/2024 7:30 AM CDT Office Visit Department of [facility], [facility], in [address] [place] [address] Sea Jha M.B.B.S., M.D. Preoperative Exam (Primary Dx); Diabetes Mellitus Type 2 With Diabetic Neuropathy (HCC); Hyperlipidemia Mixed; Hypothyroidism Acquired 04/12/2024 Clinical Communication Department of Family [facility], [facility], in [address] [address] Sea Jha M.B.B.S., M.D. Med Question 03/29/2024 Clinical Communication Department of General Surgery in [place], [place] [address] [place] [phone] Elena Munoz M.D. Return Call Request from Last 3 Months Immunizations Name Administration Dates Next Due Influenza TIV (IM) 08/18/2013 Influenza, Seasonal, Injectable 08/18/2013 PCV13 08/22/2019 PPSV23 04/09/2020 Tdap 05/12/2022, 2,02/11/2012, 008 influenza vaccine [...] colon canc er / diabetes Maternal Grandfather Mrs. Padilla Mother Edel Guardado (Age 64) heart att ack Mother's Sister Alondra Sister 1 Nicolette Sister Salina Felipe Alive Social History Tobacco Use Types Packs/Day Years Used Date Smoking Tobacco: Every Day Cigarettes 0.5 41.6 Started: 11/30/1982 Smokeless Tobacco: Never Tobacco Cessation:Ready to Q uit: Not Asked; Counseling Given: Not Answered Alcohol Use Standard Drinks/Week Comments Not Currently 0 (1 standard drink = 0.6 oz pur e alcohol) [facility] [employer] Answer Date Recorded In the past 12 months has [email or web address], gas, oil, or water [employer] threatened to shut off services in your [...] often do you attend chur ch or denominational services? 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 I have a [facility] place to live 04/26/2024 Education Answer Date Recorded What is the highest level of school you have completed or the highest degree you have received? 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 Gender Identity Female 04/07/2020 3:36 PM CDT Sexual Orientation Straight 04/07/2020 3: 36 PM CDT Last Filed Vital Signs Vital Sign Reading Time Taken Comments Blood Pressure 113/77 05/12/2024 9:35 AM CDT Pulse 87 05/12/2024 9:35 AM CDT Temperature 35.5 ??C (95.9 ??F) 05/12/2024 9 :35 AM CDT Respiratory Rate 16 05/12/2024 9:35 AM CDT Oxygen Saturation 97% 05/01/2024 7:2 8 AM CDT Room air, sitting Inhaled Oxygen Concentration - - Weight 87.1 kg (192 lb 0.3 oz) 05/12/2024 9:35 AM CDT Height 169 cm (5' 6.54) 05/01/2024 7:2 8 AM CDT Body Mass Index 30.5 05/01/2024 7:28 AM CDT Plan of Treatment Upcoming Encounters Date Type Department Care Team (Late st Contact Info) Description 07/05/2024 3:30 PM CDT Office Visit Department of Family Medicine, [facility], in [place], [place] [address] [place] [address] Sea Jha M.B.BDwight, MJohanna [address] [place] [address] Health Maintenance Due Date Last Done Comments CT Colonography 1966 Cologuard 1966 Dilated Eye Exam 1966 Hepatitis C Screening 1966 Hepatitis B Vaccines (1 of 3 - 19+ 3-dose series) 1985 Zoster Vaccines (1 of 2) 1985 COVID-19 Vaccine (3 - Pfizer risk series) 10/15/2021 09/17/2021, 08/20/2021 Diabetic Office Visit with Foot Exam 05/31/2024 05/31/2023, 11/10/2021, 08/22/2019 Urine Albumin 07/29/2024 07/29/2023, 08/22, 11/07/2021, Additional history exists Influenza Vaccine (#1) 2024 , 11/10/2021, 08/14/2019, Additional history exists Hemoglobin A1C 12/20/2024 06/19/2024, 02/20, 11/16/2023, Additional history exists Thyroid Stimulating Hormone (TSH) test for thyroid function 03/01/2025 03/01/2024, 11/16/2023, 07/29/2023, Additional history exists Colonoscopy 03/02/2025 03/02/2022, 06/22, 07/02/2017 (Performed elsewhere) Colorectal Cancer Surveillance 03/02/2025 Creatinine Level (Kidney Function Test) 03/11/2025 03/11/2024, 07/29/2023, 08/31/2022, Additional history exists Pneumococcal vaccine (0-64 years) (3 of 3 - PPSV23 or PCV20) 04/09/2025 04/09/2020, 08/22/2019 Mammogram 04/18/2025 04/18/2024, 03/23, 08/18/2023, Additional history exists Tobacco Cessation counseling 05/01/2025 05/01/2024, 09/10/2022 Office Visit for Blood Pressure Check / Re-check 05/12/2025 05/12/2024 Visit: Chronic Disease, age 18+ 05/12/2025 05/12/2024, 09/10/2022 Lipid (Cholesterol) Screening 03/01/2029 03/01/2024, 08/31/2022, 11/10/2021, Additional history exists DTaP,Tdap,and Td Vaccines (5 - Td or Tdap) 05/12/2032 05/12/2022, 03/06/2012, 02/11/2012, Additional history exists Depression Screening (Annual PHQ-2) Completed 03/03/2024, 03/03/2024 HPV Vaccines Aged Out No longer eligi ble based on patient's age to complete this topic Medical Devices Implanted Type Area Shot Peen Operator Device Identifier Shelf Expiration Date Model / Serial / Lot Implantable Port Implantable Port Chest Procedures Procedure Name Priority Date/Time Associated Diagnosis Comments HEMOGLOBIN A1C, B Routine 06/19/2024 2:0 7 PM CDT Diabetes Mellitus Type 2 Hyperglycemia (HCC) LIPID PANEL, S Routine 03/01/2024 9:32 AM CDT Hyperlipidemia Mixed THYROID-STIMULATING HORMONE-SENSITIVE (S-TSH) Routine 03/01/2024 9:31 AM CDT Hypothyroidism Acquired BI BREAST DIAGNOSTIC BILATERAL WITH TOMOSYNTHESIS RAD - Routine (most inpatients and all outpatients) 08/18/2023 10:18 AM CDT Lump In Left Breast Subareolar BASIC METABOLIC PANEL, S/P Routine 07/29/2023 9:20 AM CDT Diabetes Mellitus Type 2 Hyperglycemia (HCC) Hypothyroidism Acquired ALBUMIN, RANDOM, U Routine 07/29/2023 9: 10 AM CDT Diabetes Mellitus Type 2 Hyperglycemia (HCC) COLONOSCOPY Routine 07/02/2017 from Last 3 Months or Most Recently Relevant to Health Maintenance Results * (ABNORMAL) Hemoglobin A1c (06/19/2024 2:07 [...] Sea Hurd M.D. LAB BLO OD ADD-ON [facility] [address] [place] [address], [facility] [address] [facility] [place] [address] [place] [address] * (ABNORMAL) Lipid Panel (03/01/2024 9:32 AM [...] LAB BLO JOSE ADD-ON Performing Organization Address [facility] Co de Phone Number [facility] [address] [place] [phone], [facility] [address] [facility] [address] [place] [address] * S-TSH (Thyroid-Stimulating Hormone - Sensitive) (03/01/2024 9:31 AM CDT) TSH, Sensitive 3.2 0.3 - 4.2 mIU/L 03/01/2024 2:22 PM CDT OWAT Blood (Blood, Venous) 03/01/2024 9:31 AM CDT 03/01/2024 1:32 PM CDT Sea Hurd M.D. LAB BLO JOSE ADD-ON Performing Organization Address [facility] Co de Phone Number [facility] [address] [place] [address], [facility] [place] [address] [place] [phone] * (ABNORMAL) Basic Metabolic Panel (07/29/2023 9:20 AM CDT) Potassium, P 4.7 3.6 - 5.2 mmol/L 07/29/2023 11:44 AM CDT OWAT Sodium, P 133(L) 135 - 145 mmol/L 07/29/2023 11:44 AM CDT OWAT Chloride, P 96(L) 98 - 107 mmol/L 07/29/2023 11:44 AM CDT OWAT Bicarbonate, P 25 22 - 29 mmol/L 07/29/2023 11:44 AM CDT OW[facility] Anion Gap, P 12 7 - 15 07/29/2023 11:44 AM CDT OW[facility] BUN (Blood Urea Nitrogen), P 9 6 - 21 mg/dL 07/29/2023 11:44 AM CDT OWAT Creatinine 0.82 0.59 - 1.04 mg/dL 07/29/2023 11:44 AM CDT OWAT Estimated GFR (eGFR) 83 >=60 mL/min/BSA 07/29/2023 11:44 AM CDT OWAT Comment: Estimated GFR calculated using the 2020 CKD_EPI creatinine equation. Calcium, Total, P 9.9 8.6 - 10.0 mg/dL 07/29/2023 11:44 AM CDT OWAT Glucose, P 285(H) 70 - 140 mg/dL 07/29/2023 11:44 AM CDT OWAT Blood (Blood, Venous) 07/29/2023 9:20 AM CDT 07/29/2023 11:04 AM CDT Sea Hurd M.D. LAB BLO OD ADD-ON [facility] [address] [place] [address], [facility] [address] [facility] [place] [address] [place] [address] * Albumin, Random, Urine (07/29/2023 9:10 AM CDT) Microalbumin 15.0 mg/L 07/29/2023 11:57 AM CDT OWAT Creatinine 219 mg/dL 07/29/2023 11:57 AM CDT OWAT Albumin/Creatinin e Ratio 7 <25 mg/g 07/29/2023 11:57 AM CDT OWAT Urine (Urine, Midstream) 07/29/2023 9:10 AM CDT 07/29/2023 11:04 AM CDT Sea Hurd M.D. LAB URI NE ORDERABLES [facility] [address] [place] [address], [place] [address] [facility] [place] [address] [place] [address] * Colonoscopy (07/02/2017) EXT Colonoscopy Abnormal - See Scanned Report for Details Normal - See Scanned Report for Details Comment:See care everywhere [facility] surgical history, repeat 3 years Historical Provider GI PROCEDURE ORDERAB LES from Last 3 Months or Most Recently Relevant to Health Maintenance Advance Directives For more information, please contact: [phone] * Full Code (Latest Code Status on [...] Due to: Patient not available Care Teams Lighting Director Relationship Specialty Start Date End Date Sea Jha M.B.B.S., M.D. [address] [place] [phone] PCP - General Family Medicine 06/03/23
--- OUTSIDE RECORDS SUMMARY | 2024-06-28 15:29 | XMS_ITS | Encounter Summary ---
Author Organization [facility] Address [address] [place] [address] Care Team Providers Care Cocoa Bean Roaster Name Role Phone Sea Jha M.D. Primary Care P elio Reason for Referral * Outpatient (Routine) - Authorized Specialty Diagnoses / Procedures Referred By Comfort ellsworth Referred To Contact Family Medicine Diagnoses Diabetes Mellitus Type 2 Hyperglycemia (HCC) Sea Jha M.B.B.S., M.D. [address] [place] [address] [facility] Referral ID Status Reason Start Date Expiration Date V isits Requested Visits Authorized [id number] Authorized 06/26/2024 12/26/2025 1 1 Encounter Details Date Type Department Care Team (Late st Contact Info) Description 06/26/2024 Orders Only Department of Laboratory Medicine in [place], [place] [address] [place] [address] Sea Jha M.B.B.S., M.D. [address] [place] [address] Diabetes Mellitus Type 2 Hyperglycemia (HCC) (Primary Dx) Social History Tobacco Use Types Packs/Day Years Used Date Smoking Tobacco: Every Day Cigarettes 0.5 41.6 Started: 11/30/1982 Smokeless Tobacco: Never Alcohol Use Standard Drinks/Week Comments Not Currently 0 (1 standard drink = 0.6 oz pur e alcohol) [facility] Utilities Answer Date Recorded In the past 12 months has th e electric, gas, oil, or water company threatened to shut off services in your [...] How often do you attend chur or baptist services? More than 4 times per year 11/10/2021 Do you belong to any clubs o r organizations such as restorationism groups, unions, fraternal or athletic groups, or [...] Answer Date Recorded PHQ-2 Score 0 03/03/2024 [facility] - Occupational Stress [...] your living situation today? I have a [facility] place to live 04/26/2024 Education Answer Date Recorded What is the highest level of school you have completed or the highest degree you have received? 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 [address] [place] [phone] Scheduled Orders Name Type Priority Associated Diagnoses Orde r Schedule Hemoglobin A1c Lab Routine Diabetes Mellitus Type 2 Hyperglycemia (HCC) Expected: 12/27/2024 (Approximate), Expires: 09/26/2025 Hemoglobin A1c Lab Routine Diabetes Mellitus Type 2 Hyperglycemia (HCC) Expected: 09/26/2024 (Approximate), Expires: 09/26/2025 Hemoglobin A1c Lab Routine Diabetes Mellitus Type 2 Hyperglycemia (HCC) Expected: 06/26/2025 (Approximate), Expires: 09/26/2025 Hemoglobin A1c Lab Routine Diabetes Mellitus Type 2 Hyperglycemia (HCC) Expected: 03/26/2025 (Approximate), Expires: 09/26/2025 Scheduled Referrals Name Type Priority Associated Diagnoses Orde r Schedule Family Medicine office visit (clinic) Outpatient Referral Routine Diabetes Mellitus Type 2 Hyperglycemia (HCC) Expected: 12/27/2024 (Approximate), Expires: 09/26/2025 documented as of this encounter Visit Diagnoses Diagnosis Diabetes Mellitus Type 2 Hyperglycemia (HCC)- Primary documented in this encounter Additional Health Concerns Assessment Noted Time PHQ-9 Depression Total Score: 0 10/10/20 14 2:25 PM MOP WORKER documented as of this encounter Care Teams Cocoa Bean Roaster Relationship Specialty Start Date End Date Sea Jha M.B.B.S., MJohanna [address] [place] [phone] PCP - General Family Medicine 06/03/23 documented as of this encounter
--- OUTSIDE RECORDS SUMMARY | 2024-06-28 15:29 | XMS_ITS ---
Author Organization [facility] Address [address] [place] [address] Care Team Providers Care Labor Relations Or Personnel Negotiator Name Role Phone Unavailable Unavailable Unavailable Surgery Details Not on file Complications Check Surgery Details section. Procedure Estimated Blood Loss Check Surgery Details section. Procedure Findings Check Surgery Details section. Procedure Specimens Taken Check Surgery Details section.
--- OUTSIDE RECORDS SUMMARY | 2024-06-28 15:29 | XMS_ITS | Referral Summary ---
Author Organization [facility] Address [address] [place] [address] Care Team Providers Care Lower School Music Teacher Name Role Phone Sea Jha M.D. Primary Care P elio Source Comments Patient records contain information from all sites at [facility]. For routine questions regarding patient records, call [phone] during business hours, M-F 8:00 AM - 5:00 PM Central Time. Record requests for emergency care only can be directed to [phone] at any time.[facility] Encounters Date Type Department Care Team Description 06/27/2024 Orders Only [facility]CP [facility] Sea Jha M.B.B.S., M.D. Diabetes Mellitus Type 2 Hyperglycemia (HCC) 06/26/2024 Orders Only Department of Laboratory Medicine in [address] [phone] Sea Jha M.B.B.S., M.D. Diabetes Mellitus Type 2 Hyperglycemia (HCC) (Primary Dx) 06/19/2024 1:59 PM CDT - 06/19/2024 11:59 PM CDT Hospital Encounter Department of Laboratory Medicine in [address] [phone] Sea Jha M.B.B.S., M.D. Diabetes Mellitus Type 2 Hyperglycemia (HCC) Discharge Disposition: Home or Self Care 06/08/2024 Clinical Communication Department of Family [facility], [facility], in [address] [address] Sea Jha M.B.B.S., M.D. Communication 05/12/2024 10:00 AM CDT Office Visit Department of [facility], in [address] [place] [address] Sea Jha M.B.B.S., M.D. Malignant Neoplasm Of Breast Female Left (HCC) (Primary Dx); Diabetes Mellitus Type 2 Hyperglycemia (HCC) 05/08/2024 Clinical Communication Department of [facility], in [address] [phone] Katerin Gomez R.N. Post Hospital Follow-up 05/01/2024 7:30 AM CDT Office Visit Department of [facility], [place] [address] [place] [address] Sea Jha M.B.B.S., M.D. Preoperative Exam (Primary Dx); Diabetes Mellitus Type 2 With Diabetic Neuropathy (HCC); Hyperlipidemia Mixed; Hypothyroidism Acquired 04/12/2024 Clinical Communication Department of [facility], in [address] [phone] Sea Jha M.B.B.S., M.D. Med Question 03/29/2024 Clinical Communication Department of General Surgery in [place], [place] [address], [place] [address] Elena Munoz M.D. Return Call Request from Last 3 Months Allergies Active Allergy Reactions Criticality Noted Date Comments Oxycodone GI intolerance Low 10/12/2019 Nausea/vomiting Has tolerated hydromorphone Medications Medication Sig Dispensed Refills Start Date End Date Status acetaminophen (TYLENOL) 500 mg tablet Take 2 tablets (1,000 mg total) by mouth every 6 (six) hours as needed for pain. 100 tablet 11 09/17/2022 Active flash glucose scanning reader ([employer] [address] [place]) miscIndications:Mimi betes Mellitus Type 2 Hyperglycemia (HCC) [...] from 09/08/2023:Stage IB(pT1c, pN0(sn), cM0, G3, ER-, WV-, HER2-) - Unsigned Obesity Body Mass Index [...] Thyroiditis Alice's 04/25/202110/23 Nodule Thyroid 04/24/2021 11/10/2021 Overview (04/24/2021): Added automatically from request for surgery [id number] Pain Shoulder Left 04/16/2020 1 Pulmonary Nodule Computed To mography Indeterminate 10/12/2019 02/05/2020 Nodule Pulmonary 09/25/2019 02/05/2020 Overview (09/25/2019): Added automatically from request for surgery [id number] Mass Adrenal 09/22/2019 04/09/2020 Overview (09/22/2019): Added automatically from request for surgery [id number] Gastroesophageal Reflux Dise ase With Esophagitis 08/14/2019 08/14/2019 Nodule Pulmonary Solitary 08/14/2019 Overview (08/20/2019): Per xray Jul 2019 / Right CT Chest Aug 17, 2019 suspicious nodule Right Depression Major Recurrent Mild 06/06/2012 08/14/2019 Overview (04/13/2017): Major depressive disorder, recurrent episode, Mild Immunizations [...] drink = 0.6 oz pur e alcohol) [facility] [employer] Answer Date Recorded In the past 12 months has e [employer], gas, oil, or water [employer] threatened to shut off services in your [...] often do you attend chur ch or mormonism services? More than 4 times per year [...] Answer Date Recorded PHQ-2 Score 0 03/03/2024 [facility] - Occupational [...] your living situation today? I have a [place] place to live 04/26/2024 Education Answer Date Recorded What is the highest level of school you have completed or the highest degree you have received? 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 LAB BLO OD ADD-ON [facility] [address] [place] [address], [place] [address] [facility] [place] [address] [place] [address] * (ABNORMAL) Lipid Panel (03/01/2024 9:32 AM [...] Sea Hurd M.D. LAB BLO OD ADD-ON [facility] [address] [place] [address], [facility] OWAT [facility] in [place] [address] [place] [address] * S-TSH (Thyroid-Stimulating Hormone - Sensitive) (03/01/2024 9:31 AM CDT) TSH, Sensitive 3.2 0.3 - 4.2 mIU/L 03/01/2024 2:22 PM CDT OWAT Blood (Blood, Venous) 03/01/2024 9:31 AM CDT 03/01/2024 1:32 PM CDT Sea Hurd M.D. LAB BLO OD ADD-ON [facility] [address] [address], [facility] OW[address] [facility] [place] [address] [place] [address] * (ABNORMAL) Basic Metabolic Panel (07/29/2023 9:20 [...] Sea Hurd M.D. LAB BLO OD ADD-ON [facility] [address] [place] [address], [facility] [place] [address] [place] [address] * Albumin, Random, Urine (07/29/2023 9:10 AM CDT) Microalbumin 15.0 mg/L 07/29/2023 11:57 AM CDT OWAT Creatinine 219 mg/dL 07/29/2023 11:57 AM CDT OWAT Albumin/Creatinin e Ratio 7 <25 mg/g 07/29/2023 11:57 AM CDT OWAT Urine (Urine, Midstream) 07/29/2023 9:10 AM CDT 07/29/2023 11:04 AM CDT Sea Hurd M.D. LAB URI NE ORDERABLES [facility] [address] [place] [address], [place] [facility] [facility] [place] [address] [place] [address] * Colonoscopy (07/02/2017) EXT Colonoscopy Abnormal - See Scanned Report for Details Normal - See Scanned Report for Details Comment:See care everywhere [facility] surgical history, repeat 3 years Historical Provider GI PROCEDURE ORDERAB LES from Last 3 Months or Most Recently Relevant to Health Maintenance Advance Directives For more information, please contact: [phone] * Full Code (Latest Code Status on [...] Due to: Patient not available Care Teams Lower School Music Teacher Relationship Specialty Start Date End Date Sea Jha M.B.B.SYanira, M.D. [address] [place], [place] [address]tete ADRIANA Loyd [phone] PCP - General Family Medicine 06/03/23
--- OUTSIDE RECORDS SUMMARY | 2024-06-28 15:29 | XMS_ITS | Encounter Summary ---
Author Organization [facility] Address [address] [place] [address] Care Team Providers Care Frit Maker Name Role Phone Sea Jha M.D. Primary Care P elio Encounter Details Date Type Department Care Team (Late st Contact Info) Description 06/27/2024 Orders Only [facility] PCP [facility] MNT Sea Jha M.B.B.S., Isabella [address] [facility] [phone] Diabetes Mellitus Type 2 Hyperglycemia (HCC) Social History Tobacco Use Types Packs/Day Years Used Date Smoking Tobacco: Every Day Cigarettes 0.5 41.6 Started: 11/30/1982 Smokeless Tobacco: Never Alcohol Use Standard Drinks/Week Comments Not Currently 0 (1 standard drink = 0.6 oz pur e alcohol) [facility] Utilities Answer Date Recorded In the past 12 months has e [employer], gas, oil, or water [employer] threatened to shut off services in your [...] often do you attend chur ch or voodoo services? More than 4 times per year [...] Answer Date Recorded PHQ-2 Score 0 03/03/2024 [facility] - [...] your living situation today? I have a [facility] place to live 04/26/2024 Education Answer Date Recorded What is the highest level of school you have completed or the highest degree you have received? 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 [address] [place] [phone] Scheduled Orders Name Type Priority Associated Diagnoses Orde r Schedule Albumin, Random, Urine Lab Routine Diabetes Mellitus Type 2 Hyperglycemia (HCC) Expected: 07/11/2024, Expires: 12/24/2024 documented as of this encounter Visit Diagnoses Diagnosis Diabetes Mellitus Type 2 Hyperglycemia (HCC) documented in this encounter Additional Health Concerns Assessment Noted Time PHQ-9 Depression Total Score: 0 10/10/20 14 2:25 PM GREENHOUSE SUPERINTENDENT documented as of this encounter Care Teams Frit Maker Relationship Specialty Start Date End Date Sea Jha M.B.B.S., M.D. [address] [place] [address] [address] PCP - General Family Medicine 06/03/23 documented as of this encounter
--- OUTSIDE RECORDS SUMMARY | 2024-06-28 15:29 | XMS_ITS ---
Author Organization [facility] Address [address] [place] [address] Care Team Providers Care Beauty Counselor Name Role Phone Sea Jha M.D. Primary Care P marcelinoder Active Problems Problem Noted Date Diagnosed Date Malignant Neoplasm Of Breast Female Left 024 Cancer Staging:Pathologic stage from 09/08/2023:Stage IB(pT1c, pN0(sn), cM0, G3, ER-, CT-, HER2-) - Unsigned Obesity Body Mass Index [...] On Elapsed Days Session Dose Total Dose [id number] 04/29/2021 43 200 cGy 6,000 cGy Lifetime Dose Tracking * Chemical Lifetime Dose Automatic Entry Manual Entr y Radiation 2 mGy 2 mGy 0 mGy Fluoro Time 0.133 minutes 0.133 minutes 0 minutes Resolved Problems Problem Noted Date Diagnosed Date Resolved Date Thyroiditis Alice's 04/25/2021 12/2 Nodule Thyroid 04/24/2021 11/10/2021 Overview (04/24/2021): Added automatically from request for surgery [id number] Pain Shoulder Left 04/16/2020 1 Pulmonary Nodule Computed To mography Indeterminate 10/12/2019 02/05/2020 Nodule Pulmonary 09/25/2019 02/05/2020 Overview (09/25/2019): Added automatically from request for surgery [id number] Mass Adrenal 09/22/2019 04/09/2020 Overview (09/22/2019): Added automatically from request for surgery [id number] Gastroesophageal Reflux Dise ase With Esophagitis 08/14/2019 08/14/2019 Nodule Pulmonary Solitary 08/14/2019 Overview (08/20/2019): Per xray Jul 2019 / Right CT Chest Aug 17, 2019 suspicious nodule Right Depression Major Recurrent Mild 06/06/2012 08/14/2019 Overview (04/13/2017): Major depressive disorder, recurrent episode, Mild
--- NOTE | 2024-06-28 15:30 | CRLHL7_ITS ---
For Patients: As a result of the Century Cures Act, medical imaging exams and procedure reports are released immediately into your electronic medical record. You may view this report before your referring provider. If you have questions, please contact your health care provider. DXA BONE MINERAL DENSITY STUDY Reason for exam: Breast cancer. Current height (in): 66. Weight (lb): 185. Menopause age: 51. Ethnicity: White. 1. Have you had a previous hip or vertebral fracture? No. 2. Have you had any fractures during your adult life which did not result from significant trauma (e.g., auto accident)? No. 3. Did either of your parents have a hip fracture? No. 4. Do you smoke? Yes. 5. Have you ever taken Glucocorticoids? No. 6. Do you have rheumatoid arthritis? No. 7. Do you have secondary osteoporosis? No. 8. Do you drink 3 or more alcoholic drinks per day? No. 9. Are you being treated for osteoporosis? No. 10. Have you ever taken any of the following medications: Actonel, Evista, Fosamax, Miacalcin, Reclast, Boniva, Forteo, HRT (i.e., estrogen/hormone therapy), Protelos, Prolia, Vitamin D, Calcium, other ??? please specify. ANSWER: No. 11. Do you have any of the following medical conditions: Anorexia or bulimia, asthma or emphysema, end stage renal disease, hyperparathyroidism, any seizure disorders, cancer, inflammatory bowel diseases, hysterectomy, other ??? please specify. ANSWER: Yes, cancer and hysterectomy. 12. What was your maximum height (inches)? 66. 13. Do you perform weight bearing exercise regularly? No. 14. Do you regularly consume dairy products? Yes. 15. Do you drink caffeinated beverages? No. 16. At what age did your period start? 16. 17. Are you premenopausal? No. 18. How many full-term pregnancies have you had? 3. 19. Have you ever missed your period for more than 6 months in a row (not including or menopause)? No. TECHNIQUE: Bone mineral density study was performed using the [employer]. FINDINGS: The results of the study expressed as bone mineral density (BMD) are as follows: Lumbar spine L1 to L4: BMD: 0.974 g/cm2. T-score: -0.7. Z-score: 0.6 Neck Left: BMD: 0.852 g/cm2. T-score: 0.0. Z-score: 1.2 Right: BMD: 0.811 g/cm2. T-score: -0.3. Z-score: 0.9 Total Left: BMD: 1.016 g/cm2. T-score: 0.6. Z-score: 1.5 Right: BMD: 0.967 g/cm2. T-score: 0.2. Z-score: 1.1 IMPRESSION: Normal bone density. *Comparison exams done prior to 04/2020 were performed on different unit, [employer]. Nael Solares M.D. Diagnostic Radiologist [email or web address] GERMAN/[email or web address] parnell/Dictated by: Nael Solares MD @ 06/29/2024 12:50:00 PM (Electronically Signed)
--- OUTSIDE RECORDS SUMMARY | 2024-06-28 15:30 | XMS_ITS | Encounter Summary ---
Author Organization [facility] Address [address] [place] [address] Care Team Providers Care Hiv Prevention Specialist Name Role Phone Sea Jha M.D. Primary Care P elio Reason for Visit * Reason Comments Follow-up Post hospital. Surge ry on 05/05/[address] [facility] for double mastectomy. * Appointment Request (Routine) - Closed Specialty Diagnoses / Procedures Referred By Comfort ellsworth Referred To Contact Family Medicine Referral ID Status Reason Start Date Expiration Date Visits Re quested Visits Authorized [id number] Closed 03/15/2024 03/15/2025 1 1 Encounter Details Date Type Department Care Team (Latest Contact Info) Description 05/12/2024 10:00 AM CDT Office Visit Department of Family Medicine, [facility], in [address] [phone] Sea Jha M.B.B.S., MJohanna [address] [place] [phone] Malignant Neoplasm Of Breast Female Left (HCC) (Primary Dx); Diabetes Mellitus Type 2 Hyperglycemia (HCC) Social History Tobacco Use Types Packs/Day Years Used Date Smoking Tobacco: Every Day Cigarettes 0.5 41.6 Started: 11/30/1982 Smokeless Tobacco: Never Tobacco Cessation:Ready to Q uit: Not Asked; Counseling Given: Not Answered Alcohol Use Standard Drinks/Week Comments Not Currently 0 (1 standard drink = 0.6 oz pur e alcohol) [facility] Utilities Answer Date Recorded In the past [...] often do you attend chur ch or anglican services? 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 I have a [facility] place to live 04/26/2024 Education Answer Date Recorded What is the highest level of school you have completed or the highest degree you have received? GED or equivalent Sex and Gender Information Value Date Recorded Sex Assigned at Female 11/06/2021 3:47 PM BAND LINING BANDER Gender Identity Female 04/07/2020 3:36 PM CDT Sexual Orientation Straight 04/07/2020 3: 36 PM CDT documented as of this encounter Last Filed Vital Signs Vital Sign Reading Time Taken Comments Blood Pressure 113/77 05/12/2024 9:35 AM CDT Pulse 87 05/12/2024 9:35 AM CDT Temperature 35.5 ??C (95.9 ??F) 05/12/2024 9:35 AM CD T Respiratory Rate 16 05/12/2024 9:35 AM CDT Oxygen Saturation - - Inhaled Oxygen Concentration - - Weight 87.1 kg (192 lb 0.3 oz) 05/12/2024 9:35 A M CDT Height - - Body Mass Index 30.5 05/01/2024 7:28 AM CDT documented in this encounter Progress Notes * Sea Jha M.B.B.S., M.D. - 05/12/2024 10:00 AM CDT SUBJECTIVE CHIEF COMPLAINT / REASON FOR VISIT Caroline White is a 59 y.o. female who presents for evaluation of Follow-up (Post hospital. Surgery on 05/05/[address] [facility] for double mastectomy.). HISTORY OF PRESENT ILLNESS Caroline White is a 59-year-old female here for a post hospital visit. Hospital Follow up Hospital: [place] [facility] Date of Admission: 05/05/2024 Date of Discharge: 05/06/2024 Reason(s) for Admission: Left breast cancer Summary of hospitalization: Patient was admitted for pain control following bilateral mastectomy. There was also concern for bleeding. Patient had bilateral AV drains with clear serosanguineous output. There was no evidence of hematoma. She tolerated a regular diet and there was no evidence of bleeding. Patient was discharged home without any significant concerns. Update since discharge: Patient is here for follow-up with her daughter who has been her primary caregiver. She denies bleeding. Drains have been effective and without any significant issues. She denies fever or chills. She has been on Dilaudid for pain with good control. She would like some more pain medications today. She denies any constipation. She denies nausea or vomiting. Patient remains on Trulicity for diabetes. Blood sugar readings have been well- controlled between 88 and 120. She is on continuous glucose monitoring. She has had a limited appetite as well. The following portions of the patient's history were reviewed and updated as appropriate: allergies, current medications, family history, medical history, social history, surgical history, and problem list. REVIEW OF SYSTEMS Pertinent items are noted in HPI. OBJECTIVE VITAL SIGNS BP 113/77 (BP Location: Left arm, Patient Position: Sitting, Cuff Size: Regular) Pulse 87 Temp (!) 35.5 ??C (Temporal) Resp 16 Wt 87.1 kg BMI 30.50 kg/m?? Body mass index is 30.5 kg/m??. PHYSICAL EXAMINATION General appearance: alert, cooperative, and no distress Head: normocephalic, without obvious abnormality Eyes: conjunctivae/corneas clear Lungs: clear to auscultation bilaterally Chest wall: Bilateral mastectomy noted. Surgical dressing clean and dry. There is no redness or swelling. AV drains draining serosanguineous fluid. Heart: regular rate and rhythm ASSESSMENT / PLAN #1 Malignant Neoplasm Of Breast Female Left (HCC) #2 Diabetes Mellitus Type 2 Hyperglycemia (HCC) Caroline is here for a post hospital visit. 1. Pain control is excellent. I will start on Percocet. Patient will also continue with other pain relieving strategies like ibuprofen, warm compresses andTylenol. She will follow-up with surgery next week for drain removal. 2. Patient's last A1c was 7.3 in February. Blood sugar control seems to be improving on Trulicity. Will make no changes to her medications but she will follow-up after her repeat A1c next month. documented in this encounter Plan of Treatment Upcoming Encounters Date Type Department Care Team (Late st Contact Info) Description 07/05/2024 3:30 PM CDT Office Visit Department of Family Medicine, [facility], in [place], [place] [address] [place] [phone] Sea Jha M.B.B.S., M.D. [address] [place] [address] documented as of this encounter Visit Diagnoses Diagnosis Malignant Neoplasm Of Breast Female Left (HCC)- Primary Diabetes Mellitus Type 2 Hyperglycemia (HCC) documented in this encounter Additional Health Concerns Assessment Noted Time PHQ-9 Depression Total Score: 0 10/10/20 14 2:25 PM BAND LINING BANDER documented as of this encounter Care Teams Hiv Prevention Specialist Relationship Specialty Start Date End Date Sea Jha M.B.B.S., MCelina. [address] [place] [address] [place] [address] PCP - General Family Medicine 06/03/23 documented as of this encounter
--- OUTSIDE RECORDS SUMMARY | 2024-06-28 15:30 | XMS_ITS | Encounter Summary ---
Author Organization [facility] Address [address] [place] [address] Care Team Providers Care Furnace Mechanic Helper Name Role Phone Sea Jha M.D. Primary Care P elio Reason for Visit * Reason Onset Date Comments Return Call Request 03/29/2024 Encounter Details Date Type Department Care Team (Latest Contact Info) Description 03/29/2024 Clinical Communication Department of General Surgery in [place], [place] [address] [phone] Elena Munoz M.D. [address] [phone] Return Call Request Social History Tobacco Use Types Packs/Day Years [...] How often do you attend chur or oriental orthodox services? More than 4 times per year 11/10/2021 Do you belong to any clubs o r organizations such as roman catholic groups, unions, fraternal or athletic groups, or [...] Answer Date Recorded PHQ-2 Score 0 03/03/2024 [facility] Occupat ional Health - Occupational [...] place to sleep or slept in a long term (including now)? 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 [address] [place] [address] documented as of this encounter Visit Diagnoses Not on filedocumented in this encounter Additional Health Concerns Assessment Noted Time PHQ-9 Depression Total Score: 0 10/10/20 14 2:25 PM WEAVER APPRENTICE documented as of this encounter Care Teams Furnace Mechanic Helper Relationship Specialty Start Date End Date Sea Jha M.B.B.S., M.D. [address] [facility] [place] [address] PCP - General Family Medicine 06/03/23 documented as of this encounter
--- OUTSIDE RECORDS SUMMARY | 2024-06-28 15:30 | XMS_ITS | Encounter Summary ---
Author Organization [facility] Address [address] [place] [address] Care Team Providers Care Home Decorator Name Role Phone Sea Jha, MJohanna Primary Care P elio Reason for Visit * Reason Onset Date Comments Med Question 03/15/2024 Med increase mil ligrams Encounter Details Date Type Department Care Team (Latest Contact Info) Description 03/15/2024 Clinical Communication Department of Family Medicine, [facility], in [place], [place] [address] [place] [address] Sea Jha M.B.BYaniraS., M.D. [address] [place] [address] Med Question (Med increase milligrams) [...] often do you attend chur ch or faith services? More than 4 times per year 11/10/2021 Do you belong to any clubs o r organizations such as congregational groups, unions, fraternal or athletic groups, or [...] Answer Date Recorded PHQ-2 Score 0 03/03/2024 [facility] - [...] place to sleep or slept in a [place] health [place] facility (including now)? No 11/10/2021 Nutrition Answer Date [...] Sex Assigned at Female 11/06/2021 3:47 PM MEDICAL DERMATOLOGIST Gender Identity Female 04/07/2020 3:36 PM CDT Sexual Orientation Straight 04/07/2020 3: 36 PM CDT documented as of this encounter Miscellaneous Notes * Telephone Encounter - Tasia Clemons R.N. - 03/15/2024 12:31 PM CDT Medical Social Consultant spoke to patient to relay message from Olivier Garcia: I would recommend she double the dose of Lyrica. I called in a new prescription for her follow-up with Dr. Jha. Patient is in agreement with this plan, was transferred to scheduling but hung up. License Inspector is going to call her back to schedule. documented in this encounter Plan of Treatment Upcoming Encounters Date Type Department Care Team (Late st Contact Info) Description 07/05/2024 3:30 PM CDT Office Visit Department of Family Medicine, [facility], in [place], [place] [address] [place] [phone] Sea Jha M.B.B.S., Isabella [address] [place] [phone] documented as of this encounter Visit Diagnoses Diagnosis Neuropathy Peripheral documented in this encounter Additional Health Concerns Assessment Noted Time PHQ-9 Depression Total Score: 0 10/10/20 14 2:25 PM MEDICAL DERMATOLOGIST documented as of this encounter Care Teams Home Decorator Relationship Specialty Start Date End Date Sea Jha M.B.B.S., MJohanna [address] [place] [phone] PCP - General Family Medicine 06/03/23 documented as of this encounter
--- OUTSIDE RECORDS SUMMARY | 2024-06-28 15:30 | XMS_ITS | Encounter Summary ---
Author Organization [facility] Address [address] [place] [address] Care Team Providers Care Gasoline Truck Crane Operator Name Role Phone Sea Jha M.D. Primary Care P elio Reason for Visit * Reason Onset Date Comments Communication 06/08/2024 Encounter Details Date Type Department Care Team (Late st Contact Info) Description 06/08/2024 Clinical Communication Department of Family Medicine, [facility], in [place], [place] [address] [place] [address] Sea Jha M.B.B.S., Isabella [address] [place] [phone] Communication Social History Tobacco Use Types Packs/Day Years Used Date Smoking Tobacco: Every Day Cigarettes 0.5 41.6 Started: 11/30/1982 Smokeless Tobacco: Never Alcohol Use Standard Drinks/Week Comments Not Currently 0 (1 standard drink = 0.6 oz pur e alcohol) [facility] Utilities Answer Date Recorded In the past 12 months has e [employer], gas, oil, or water company threatened to [...] How often do you attend chur or sikhism services? 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 04/26/2024 Housing Stability Answer Date Recorded What is your living situation today? I have a [facility] place to live 04/26/2024 Education Answer Date Recorded What is the highest level of school you have completed or the highest degree you have received? GED or equivalent Sex and Gender Information Value Date Recorded Sex Assigned at Female 11/06/2021 3:47 PM SPINE SPECIALIST Gender Identity Female 04/07/2020 3:36 PM CDT Sexual Orientation Straight 04/07/2020 3: 36 PM CDT documented as of this encounter Miscellaneous Notes * Telephone Encounter - Kajal Wood L.P.N. - 06/23/2024 9:50 AM CDT SUBJECTIVE CHIEF COMPLAINT / REASON FOR CALL Communication Information Discussed Patient was reached and notified of recommendations. Transferred to scheduling to assist in settingup an appt. With Primary PLAN Disposition/Recommendation: N/A Information/Education: patient/caller able to teach back Caller agreeable to plan of care: yes The following references were used: provider Dr. Medina * Telephone Encounter - Mouna Porter L.P.N. - 06/20/2024 9:59 AM CDT SUBJECTIVE CHIEF COMPLAINT / REASON FOR CALL Communication PLAN The following information was provided: Called and spoke with patient. Patient stated she current is taking 75 mg twice a day of Lyrica andis requesting an increase due to her balance still being off and her feet burning. Information/Education: patient/caller able to teach back The following references were used: nursing clinical judgement * Telephone Encounter - Mikaela Lee C.M.A. - 06/19/2024 4:47 PM CDT Need to gather more information as to why patient is asking for an increase in the dosage of Lyrica. * Telephone Encounter - Mouna Porter L.P.N. - 06/08/2024 4:55 PM CDT Need to gather more information from [employer]. documented in this encounter Plan of Treatment Upcoming Encounters Date Type Department Care Team (Late st Contact Info) Description 07/05/2024 3:30 PM CDT Office Visit Department of Family Medicine, [facility], in [place], [place] [address] [facility] [place] [address] Sea Jha M.B.B.S., MCelina. [address] [place] [address], [place] [phone] documented as of this encounter Visit Diagnoses Not on filedocumented in this encounter Additional Health Concerns Assessment Noted Time PHQ-9 Depression Total Score: 0 10/10/20 14 2:25 PM SPINE SPECIALIST documented as of this encounter Care Teams Gasoline Truck Crane Operator Relationship Specialty Start Date End Date Sea Jha M.B.B.S., Bubba. [address] [place] [address] [place] [phone] PCP - General Family Medicine 06/03/23 documented as of this encounter
--- OUTSIDE RECORDS SUMMARY | 2024-06-28 15:30 | XMS_ITS | Clinical Summary ---
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 Mon-Fri 11/10/2021 Active acetaminophen (TYLENOL EXTRA STRGTH) 500 mg tablet Take 1,000 mg by mouth every 6 hours if needed for Pain. 09/17/2022 Active dulaglutide (Trulicity) 4.5 mg/0.5 mL subcutaneous pen Inject 4.5 mg subcutaneous once weekly. 6 mL 3 07/30/2023 Active levothyroxine (SYNTHROID) 25 mcg tablet Take 25 mcg by mouth. Wednesday and Sundays Active pravastatin (PRAVACHOL) 40 mg tablet Take 40 mg by mouth once daily. 09/01/2023 Active FreeStyle Veronika 14 Day Sensor CHANGE SENSOR EVERY 14 DAYS Active pregabalin (LYRICA) 75 mg capsule Take 75 mg by mouth two times daily. 05/01/2024 05/01/2025 Active HYDROmorphone (DILAUDID) 2 mg tabletIndications: Malignant neoplasm of left breast in female, estrogen receptor negative, unspecified site of breast (HC),S/P mastectomy, bilateral Take 1 Tablet (2 mg) by mouth every 4 hours if needed for Pain (For moderate pain). 15 Tablet 05/06/2024 Active ibuprofen (ADVIL; MOTRIN) 600 mg tabletIndications: Malignant neoplasm of upper-outer quadrant of left breast in female, estrogen receptor negative (HC) Take 1 Tablet (600 mg) by mouth every 6 hours if needed for Pain (For mild pain 2nd choice). Maximum of 3200 mg in 24 hours. 05/06/2024 Active oxyCODONE-acetamin ophen (Percocet) 5-325 mg per tabletIndications: Acute post-operative pain Take 1 Tablet by mouth every 6 hours if needed for Pain. Max acetaminophen dose: 4000mg in 24 hrs. 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 Keshia Roque) 05/05/2024 7:40 AM CDT Anesthesia Event [facility] [address] [place] [address] Teresa Goddard CRNA 05/05/2024 7:30 AM CDT - 05/05/2024 10:30 AM CDT Surgery [facility] [address] [place] [address] Keshia Roque MD Bilateral mastectomy 05/05/2024 5:15 AM CDT - 05/06/2024 11:06 AM CDT Hospital Encounter [facility] [address] [place] [address] Keshia Roque MD Malignant neoplasm of left breast in female, estrogen receptor negative, unspecified site of breast (HC) (Primary Dx); S/P mastectomy, bilateral; Malignant neoplasm of upper-outer quadrant of left breast in female, estrogen receptor negative (HC) Discharge Disposition: Home Self Care 05/05/2024 Travel 05/03/2024 Travel 05/01/2024 Telephone [facility] [address] [facility] [address] [place] [address] [facility] Scheduled 05/01/2024 Telephone [facility] [address] [facility] [address] [place] [address] [facility] Surgery Scheduled (Updated Appt date. Surgeron N/A on 05/04.) 04/19/2024 Telephone [facility] [address] [place] [address] [facility] Scheduled 04/18/2024 9:00 AM CDT Office Visit [facility] [address] [place] [address] Keshia Roque MD Consult 04/18/2024 8:19 AM CDT - 04/18/2024 11:59 PM CDT Hospital Encounter [facility] [address] [address] Keshia Roque MD Malignant neoplasm of female breast, unspecified estrogen receptor status, unspecified laterality, unspecified site of breast (HC) 04/18/2024 Travel 04/11/2024 Orders Only [facility] [address] [address] Keshia Roque MD <No scans attached> 04/03/2024 Orders Only [facility] Scanner 1 scan: (1-Ord) INCOMING RECORDS-, [facility], 04/03/2024 04/03/2024 Orders Only [facility] Scanner 1 scan: (1-Ord) INCOMING RECORDS-, [facility], 04/03/2024 04/03/2024 Orders Only [facility] Scanner 1 scan: (1-Ord) INCOMING RECORDS-, [facility], 04/03/2024 04/03/2024 Telephone [facility] [address] [address] Shobha Ku RN Appointment (Breast cancer /) 03/31/2024 Orders Only [facility] Scanner 1 scan: (1-Ord) INCOMING RECORDS-CT, [facility], 03/31/2024 03/31/2024 Orders Only [facility] Scanner 1 scan: (1-Ord) INCOMING RECORDS-CT, [facility], 03/31/2024 03/31/2024 Orders Only [facility] Scanner 1 scan: (1-Ord) INCOMING RECORDS-CT, [facility], 03/31/2024 03/31/2024 Telephone [facility] [place] [facility] [address] [place] [address] [place] Cancer Referral (Malignant neoplasm of left breast s/p left lumpectomy 08/2023, now requesting prophylactic mastectomy with reconstruction) from Last 3 Months Immunizations Name Administration Dates Next Due Influenza, IIV3 (Age >=3 years) 08/18/2013 Influenza, IIV4 08/22/2017,09/25/2014 Tdap 02/11/2012,08/13/2008 Family History Medical History Relation Name Comments Cancer-pancreatic Brother Cancer-prostate Brother Cancer-prostate Father Cancer-breast Maternal Aunt Cancer-breast Maternal Grandmother Cancer Mother lung Heart Disease Mother [place] Cancer-breast Sister 1 Cancer-breast Sister 2 Cancer-breast Sister 3 Marlin Cancer-colon No Family History Cancer-ovarian No Family History Melanoma No Family History Relation Name Status Comments Brother Father Maternal Aunt Maternal Grandmother Mother Sister 1 Alive Sister 2 Alive Sister 3 Marlin Alive Social History Tobacco Use Types Packs/Day Years Used Date Smoking Tobacco: Former Cigarettes 0.3 34 Smokeless Tobacco: Former Comments:Quit smoking 4 (updated 05/03/24) Alcohol Use Standard Drinks/Week Comments Not Currently 1.7 (1 standard drink = 0.6 oz p ure alcohol) rare Social Connections Answer Date Recorded Frequency of Communication with Friends and Fami ly 0 05/05/2024 Financial Resource Strain Answer Date R ecorded Difficulty of Paying Living Expenses 3 05/05/2024 Difficulty of Paying Living Expenses Not on file 05/05/2024 Food Insecurity Answer Date Recorded Worried About Running Out of Food in the Last Ye ar 1 05/05/2024 Transportation Needs Answer Date Record ed Lack of Transportation (Medical) 1 05/05/2024 Housing Stability Answer Date Recorded Unable to Pay for Housing in the Last Year 1 05/05/2024 Sex and Gender Information Value Date Recorded Sex Assigned at Not on file Gender Identity Not on file Sexual Orientation Not on file Obstetrics History Para Term AB IAB SAB Ectopic Multiple Livin g Live Births 3 3 3 3 Date Outcome GA Total Labor Labor/2nd/3rd Weight Sex Type Anes PTL Kerry A1 A5 Name Clin Term Term Term Last Filed Vital Signs Vital Sign Reading Time Taken Comments Blood Pressure 119/72 05/16/2024 10:07 AM CDT Pulse 83 05/16/2024 10:07 AM CDT Temperature 36.2 ??C (97.1 ??F) 05/16/2024 10:07 AM C DT Respiratory Rate 20 05/16/2024 10:07 AM CDT Oxygen Saturation 97% 05/16/2024 10:07 AM CDT Inhaled Oxygen Concentration - - Weight 86.7 kg (191 lb 3.2 oz) 05/16/2024 10:07 AM CDT Height 167.6 cm (5' 6) 05/16/2024 10:07 AM CDT Body Mass Index 30.86 05/16/2024 10:07 AM CDT Plan of Treatment Health Maintenance Due Date Last Done Comments Pneumococcal series for age 6-64 (1 of 2 - PCV) 01/27/1972 HIV for age 15-65 1981 Hepatitis C screening for ag e 18-79 01/27/1984 Zoster (shingles) series for age 50+ (1 of 2) 1985 Depression screening for age 12+ 11/29/2018 11/29/2017, 08/18/2017, 12/22/2016, Additional history exists COVID-19 vaccine series (3 - Pfizer risk series) 10/15/2021 09/17/2021, 08/20/2021 Tetanus booster 02/10/2022 02/11/2012, 04/22 (Postponed), 08/13/2008 Lipids for age 45-75 09/20/2022 09/20/2017, 02/11/2012, 04/23/2011 Influenza for age 50-64 07/23/2024 08/22/20 17, 09/25/2014, 08/18/2013 Colonoscopy through age 75 03/02/202503/02, 07/02/2017, 07/15/2010 Mammogram for age 45-75 04/18/2025 04/18/20 24, 08/18/2023, 03/06/2022, Additional history exists BMI (ht and wt on same day) for age 18+ 05/16/2025 05/16/2024, 04/18/2024, 07/12/2018, Additional history exists Tdap Completed 02/11/2012, 08/13/2008 Goals Goal Patient Goal Type Associated Problems Recent Progress Patient-Stated? Author BLOOD PRESSURE - MAINTAINS BP less than 140/90 Blood Pressure No Jaron Robert MD Procedures Procedure Name Priority Date/Time Associated Diagnosis Comments GLUCOSE METER Timed 05/06/2024 7:23 AM CDT GLUCOSE METER Timed 05/05/2024 4:05 PM CDT GLUCOSE METER Timed 05/05/2024 11:02 AM CDT PATH TISSUE EXAM Today 05/05/2024 8:38 AM CDT ENDOTRACHEAL TUBE Routine 05/05/2024 7:5 5 AM CDT ENDOTRACHEAL TUBE Routine 05/05/2024 7:5 5 AM CDT ENDOTRACHEAL TUBE Routine 05/05/2024 7:5 5 AM CDT MASTECTOMY SIMPLE BILATERAL Elective 05/05/2024 7:20 AM CDT Malignant neoplasm of left breast in female, estrogen receptor negative, unspecified site of breast (HC) GLUCOSE METER Timed 05/05/2024 7:13 AM CDT SCAN-CARDIAC STRIP 05/05/2024 12 :00 AM CDT SCAN-CARDIAC STRIP 05/05/2024 12 :00 AM CDT XR MAMMO DYANA BILAT DIAG FLO 04/18/2024 8:47 AM CDT Malignant neoplasm of female breast, unspecified estrogen receptor status, unspecified laterality, unspecified site of breast (HC) SCAN CORRESP-IMAGING 04/03/2024 12:00 AM CDT SCAN CORRESP-IMAGING 04/03/2024 12:00 AM CDT SCAN CORRESP-IMAGING 04/03/2024 12:00 AM CDT SCAN CORRESP-IMAGING 03/31/2024 12:00 AM CDT SCAN CORRESP-IMAGING 03/31/2024 12:00 AM CDT SCAN CORRESP-IMAGING 03/31/2024 12:00 AM CDT COLONOSCOPY 03/02/2022 10:26 AM CDT LIPID PANEL Routine 09/20/2017 7:55 AM CDT Lipid screening from Last 3 Months or Most Recently Relevant to Health Maintenance Results * (ABNORMAL) GLUCOSE METER (05/06/2024 7:23 AM CDT) Only the most recent of4 resultswithin the time period is included. GLUCOSE METER 194(H) 65 - 100 mg/dL 05/06/2024 7:29 AM CDT [facility] Blood BLOOD SPECIMEN / Unknown 05/06/2024 7:23 AM CDT 05/06/2024 7:29 AM CDT Keshia Roque MD [facility] [address] [place] [address], * PATH TISSUE EXAM (05/05/2024 8:38 AM CDT) Case Report Pathology Report ?Case: [id number] ? Authorizing Provider: ??Keshia Roque MD ?? Collected: ? 05/05/2024 0838 ? Ordering Location: ? [facility] ?Received: ?05/05/2024 0850 ? Hospital ? Pathologist: ? Nael Walters MD ? Specimens: ?? A) - Left Breast Mastectomy, short stitch superior, long stitch lateral ? B) - Right Breast Mastectomy, short stitch superior, long stitch lateral ? C) - Left Breast Excision, left breast add'l lateral tissue ? D) - Left Breast Excision, left breast add'l medial tissue ? E) - Right Breast Excision, right breast add'l lateral tissue ? F) - Right Breast Excision, right breast add'l medial tissue ? 05/09/2024 10:54 AM CDT [facility] Final Diagnosis A) LEFT BREAST, MASTECTOMY: 1. Ductal carcinoma in situ (DCIS), nuclear grade 2, Solid type ?a. Size: At least 14 mm ?b. Margins: >5 mm from all margins 2. Breast Ancillary Testing (DCIS): ?a. Estrogen receptor: Positive (91-100%, strong staining by manual morphometry) 3. Prior lumpectomy site changes 4. Benign nipple and focal benign skeletal muscle 5. Benign intramammary lymph node (0/1) 6. Negative for invasive malignancy B) RIGHT BREAST, MASTECTOMY: 1. Proliferative fibrocystic change 2. Benign nipple 3. Negative for atypia and malignancy C) LEFT BREAST, ADDITIONAL LATERAL TISSUE, EXCISION: 1. Skin and subcutis 2. Negative for malignancy D) LEFT BREAST, ADDITIONAL MEDIAL TISSUE, EXCISION: 1. Skin and subcutis 2. Negative for malignancy E) RIGHT BREAST, ADDITIONAL LATERAL TISSUE, EXCISION: 1. Skin and subcutis 2. Negative for malignancy F) RIGHT BREAST, ADDITIONAL MEDIAL TISSUE, EXCISION: 1. Skin and subcutis 2. 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 Please see case [id number] for original staging information. 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 Found to have ISSA mutation 05/09/2024 10:54 AM CDT [facility] Gross Description A) Received fresh, labeled with the patient's name and left breast mastectomy short stitch superior long stitch lateral, is a 595 gram, 18 (M-L) x 18 (S-I) x 4 (A-P) cm oriented left breast mastectomy specimen without attached axillary contents. There is an attached 15 x 11 cm portion of skin with a 1.4 cm everted nipple and 4.5 cm surrounding areola. No skin scars or lesions are identified. The specimen is inked: Anterior-superior : Blue Anterior-inferior : Red Posterior: Black There is a 4.5 (ML) x 2.5 (SI) x 1.6 (AP) lopes fibrous scar previous lumpectomy scar with central cavitary area. ??The previous lumpectomy site is at the approximate 12 o'clock position 4.5 cm from the nipple, 0.6 cm from posterior, 2.8 cm from the anterior superior and 7 cm from the anterior-inferior margin. Also identified at the approximate 6 o'clock position 2.5 cm from the nipple is a 0.6 x 0.6 x 0.6 cm lopes-white fibrous possible nodule. ??The nodule is 2 cm from the previous lumpectomy site and is 1.1 cm from the closest posterior margin. The remaining cut surfaces consist of 70% yellow, lobulated adipose tissue and 30% fibrous tissue. No lymph nodes are identified grossly. [employer] sections are submitted: 1. ??Nipple 2-4. ??Sampling of previous lumpectomy site 5. ??Possible nodule 6. ??Bridging section between previous lumpectomy site and nodule together spanning 5.3 cm SI 7-8. ??Upper outer quadrant 9-10. ??Lower outer quadrant 11-12. ??Upper inner quadrant 13-14. ??Lower inner quadrant ADW 05/08/2024: After initial histologic evaluation, 5 additional blocks of the lower outer quadrant are submitted per Dr. Walters request: 15. ??[employer] Mechanic tissue between lumpectomy site and previously sampled lower outer quadrant tissue 16-19. ??Random fibrous tissue from lower outer quadrant Time removed from patient: 837 Time placed in formalin: 914 Date removed and placed in formalin: 05/05/2024 Cold ischemic time < 60 minutes. The specimen was fixed in formalin for a minimum of 6 hours and not longer than 72 hours. [facility] 05/05/2024 B) Received fresh, labeled with the patient's name and right breast mastectomy short stitch superior long stitch lateral, is a 620 gram, 18 (M-L) x 17.5 (S-I) x 4 (A-P) cm right mastectomy specimen. There is an attached 17 x 12.5 cm portion of skin with a 1.4 cm everted nipple and 4.5 cm surrounding areola. No skin scars or lesions are identified. The specimen is oriented and inked: Anterior-superior : Blue Anterior-inferior : Red Posterior: Black The cut surfaces consist of 70% yellow, lobulated adipose tissue and 30% fibrous tissue. ??No discrete lesion are identified grossly. [employer] Vault Mechanic sections are submitted: 1. ??Nipple 2-3. ??Upper outer quadrant 4-5. ??Lower outer quadrant 6-7. ??Upper inner quadrant 8-9. ??Lower inner quadrant Time removed from patient: 903 Time placed in formalin: 954 Date removed and placed in formalin: 05/05/2024 Cold ischemic time < 60 minutes. The specimen was fixed in formalin for a minimum of 6 hours and not longer than 72 hours. [facility] 05/05/2024 C) Received fresh labeled with the patient's name and left breast additional lateral tissue, is a 65 g, 9 x 7 x 2.5 cm aggregate of 3 portions of skin and adipose. ??The specimen is inked black and is sectioned revealing yellow lobulated cut surfaces. ??No discrete lesions are manufacturer's representative sections are submitted in 1 cassette. Time removed from patient: 919 Time placed in formalin: 1001 Date removed and placed in formalin: 05/05/2024 Cold ischemic time < 60 minutes. The specimen was fixed in formalin for a minimum of 6 hours and not longer than 72 hours. [facility] 05/05/2024 D) Received fresh labeled with the patient's name and left breast additional medial tissue, is a 18 g, 7 x 3.5 x 2.0 cm portion of skin and adipose. ??The specimen is inked blue and is sectioned revealing yellow lobulated cut surfaces. ??No discrete lesions are manufacturer's representative sections are submitted in 1 cassette. Time removed from patient: 920 Time placed in formalin: 1001 Date removed and placed in formalin: 05/05/2024 Cold ischemic time < 60 minutes. The specimen was fixed in formalin for a minimum of 6 hours and not longer than 72 hours. E) Received fresh labeled with the patient's name and right breast additional lateral tissue, is a 29 g, 6.5 x 4.8 x 2 cm portion of skin and adipose. ??The specimen is inked green and is sectioned revealing yellow lobulated cut surfaces. ??No discrete lesions are manufacturer's representative sections are submitted in 1 cassette. Time removed from patient: 925 Time placed in formalin: 1001 Date removed and placed in formalin: 05/05/2024 Cold ischemic time < 60 minutes. The specimen was fixed in formalin for a minimum of 6 hours and not longer than 72 hours. F) Received fresh labeled with the patient's name and right breast additional medial tissue, is a 17 g, 6.5 x 4.5 x 1.3 cm portions of skin and adipose. ??The specimen is inked red and is sectioned revealing yellow lobulated cut surfaces. ??No discrete lesions are manufacturer's representative sections are submitted in 1 cassette. Time removed from patient: 927 Time placed in formalin: 1001 Date removed and placed in formalin: 05/05/2024 Cold ischemic time < 60 minutes. The specimen was fixed in formalin for a minimum of 6 hours and not longer than 72 hours. [facility] 05/05/2024 05/09/2024 10:54 AM [facility] Microscopic Description The final diagnosis is based on microscopic examination of appropriate sections of all specimens. Immunohistochemic al staining (performed on block A9): Stain: ? Result: E-cadherin ? Positive/retained expression 05/09/2024 10:54 AM [facility] SYNOPTIC REPORTING Breast Biomarker Reporting Template BREAST BIOMARKER REPORTING TEMPLATE - A Protocol posted: 11/03/2023 ?? Test(s) Performed: ? Estrogen Receptor (ER) Status: ?Positive (greater than 10% of cells demonstrate nuclear positivity) ? Percentage of Cells with Nuclear Positivity: ?91-100% ? Average Intensity of Staining: ?Strong ? Test Type: ?Laboratory-deve loped test ? Primary Antibody: ?SP1 ? Scoring System: ?Thien ? Proportion Score: ?5 ? Intensity Score: ?3 ? Total Thien Score: ?8 ?? Cold Ischemia and Fixation Times: ?Meet requirements specified in latest version of the ASCO / CAP Guidelines ?? Testing Performed on Block Number(s): ?A9 METHODS ?? Fixative: ?Formalin ?? Image Analysis: ?Not performed ?? Comment(s): ?ER analysis was performed by manual mophometry for the Thien Scoring System 05/09/2024 10:54 AM CDT [facility] Additional Information Interpreted at [facility] - [address], [place] [address] Immunohistochemis try controls were reviewed and approved by the pathologist during this examination. 05/09/2024 10:54 AM CDT [facility] Tissue (Left Breast Mastectomy) 05/05/2024 8:38 AM CDT 05/05/2024 8:50 AM CDT Tissue specimen (specimen) (Right Breast Mastectomy) 05/05/2024 9:04 AM CDT 05/05/2024 9:19 AM CDT Tissue specimen (specimen) (Left Breast Excision) 05/05/2024 9:20 AM CDT 05/05/2024 9:56 AM CDT Tissue specimen (specimen) (Left Breast Excision) 05/05/2024 9:21 AM CDT 05/05/2024 9:56 AM CDT Tissue specimen (specimen) (Right Breast Excision) 05/05/2024 9:26 AM CDT 05/05/2024 9:56 AM CDT Tissue specimen (specimen) (Right Breast Excision) 05/05/2024 9:28 AM CDT 05/05/2024 9:56 AM CDT Keshia Roque MD PATHOLOGY/CYTOLOG Y [facility] [address] [place] [address], [place] * HCHG TUBE PR1, HCHG STYLET PR1, HCHG MOUTHPIECE PR1 (05/05/2024 7:55 AM CDT) Narrative Teresa Childers CRNA - 05/05/2024 7:55 AM CDT Teresa Childers CRNA ? 05/05/2024 ??7:56 AM Procedure: ETT Patient location during procedure: OR ETT Properties Mask Ventilation: easy Final Technique: direct laryngoscopy Type: straight Location: oral Cuffed: yes Tube Size: 7.0 mm Stylet: yes Laryngoscope Blade: Diaz Blade Size: 2 Cormack-Lehane Grade View: 2 Insertion Attempts: 1 Placement Verification: end tidal CO2 and symmetrical chest wall movement Assessment: pharynx clear and atraumatic Secured at: 21 Measured From: gums Tooth guard used and removed: yes Difficulty: 0 (not difficult) Teresa Childers CRNA ANESTH ESIA PX NOTE ORDERABLES * SCAN-CARDIAC STRIP (05/05/2024 12:00 AM CDT) Narrative 05/05/2024 12:00 AM CDT Ordered by an unspecified provider. Other Clinical Staff OTHER * SCAN-CARDIAC STRIP (05/05/2024 12:00 AM CDT) Narrative 05/05/2024 12:00 AM CDT Ordered by an unspecified provider. Other Clinical Staff OTHER * XR MAMMO DYANA DIAG BILAT (04/18/2024 8:47 AM CDT) Anatomical Region Laterality Modality BREASTS, Breast Left, Breast Right Bilateral Mammography 04/18/2024 3:30 PM CDT Impressions 04/20/2024 2:56 PM CDT Benign, there is no mammographic evidence of malignancy. RECOMMENDATIONS: Clinical follow-up. If BILATERAL mastectomy is not performed, patient should receive screening mammogram in 1 year. Results and recommendations were discussed with the patient at the time of the exam. BI-RADS Category 2: Benign Dictated by: Sharon Duarte MD @04/18/2024 3:30:56 PM/mary PATIENTS: You will also receive a letter with your examination results in an easy to read format. ??If you have questions about your results, please contact your referring provider. Narrative 04/20/2024 2:56 PM CDT As a result of the Century Cures Act, medical imaging exams and procedure reports are released immediately into your electronic medical record. ??You may view this report before your referring provider. ??If you have questions, please contact your health care provider. BILATERAL BREAST MAMMOGRAM DIGITAL DIAGNOSTIC WITH COMPUTER-AIDED DETECTION AND TOMOSYNTHESIS 04/18/2024 ?? CLINICAL HISTORY: History of recently treated LEFT breast cancer (lumpectomy). Patient now desires mastectomy, mammogram requested. COMPARISON: Mammogram 08/18/2023, 02/24/2022 and 09/30/2017. TECHNIQUE: Digital BILATERAL mammogram in CC and MLO projections with tomosynthesis. ?? Computer-aided detection used. BREAST COMPOSITION: There are scattered areas of fibroglandular density. FINDINGS: There are postsurgical changes of lumpectomy in the LEFT breast. No suspicious mammographic finding. Keshia Roque MD MAMMO * SCAN CORRESP-IMAGING (04/03/2024 12:00 AM CDT) Only the most recent of6 resultswithin the time period is included. Anatomical Region Laterality Modality Other Scanner OTHER * COLONOSCOPY (03/02/2022 10:26 AM CDT) 03/02/2022 10:2 6 AM CDT Narrative Transcriptions Elena Munoz MD - 03/02/2022 1:32 PM CDT Patient Name: Caroline White Procedure Date: 03/02/2022 Gender: Female Date of : 1965 Admit Type: Ambulatory Procedure: Colonoscopy Proceduralist: Elena Guerrero MD Referring MD: Elena Guerrero MD Indications/Pre-Op [...] the bowel preparation was evaluated using theBBPS (Ault Bowel Preparation Scale) with scores of: Right [...] Elena Tellez MD PROCEDURE O RD * (ABNORMAL) LIPID PANEL (09/20/2017 7:55 AM CDT) CHOLESTEROL,TOTAL 299(H) 100 - 199 mg/dL 09/20/2017 9:08 AM CDT [facility] TRIGLYCERIDES 466(H) <150 mg/dL 09/20/2017 9:08 AM CDT [facility] HDL CHOLESTEROL 43 >40 mg/dL 7 9:08 AM CDT [facility] NON-HDL CHOLESTEROL 256(H) <145 mg/dl 09/20/2017 9:08 AM CDT [facility] CHOL/HDL RATIO 6.95(H) <4.50 09/20/2017 9:08 AM CDT [facility] LDL CHOLESTEROL 7 9:08 AM CDT [facility] Comment:Invalid LDL when Tri g >400. PROVIDER ORDERED STATUS RANDOM 09/20/2017 9:08 AM CDT [facility] Blood BLOOD SPECIMEN / Unknown Venipuncture / Unknown 09/20/2017 7:55 AM CDT 09/20/2017 7:55 AM CDT Jaron Robert MD CHEMISTRY [facility] [address] [place] [address] from Last 3 Months or Most Recently Relevant to Health Maintenance Advance Directives * Full Code (Latest Code Status on File) Date Activated Date Inactivated Comments 05/05/2024 5:53 AM 05/05/2024 1:02 PM Question Answer Comments Code Status Discussion: Unable to Assess Preferences, Provider to review later * Full Code Date Activated Date Inactivated Comments 09/08/2023 9:04 [...] Comments 07/02/2017 7:27 AM 07/02/2017 11:44 AM Care Teams Linotype Machinist Relationship Specialty Start Date End Date Sea Jha MBBS [address] [place] [address] PCP - General Family Practice 03/11/24 Elvira Puentes, RN [address] [address] Nurse Navigator - Oncology Registered Nurse 04/10/24 Keshia Roque MD [address] [facility] [address] [place] [address] Surgery - General 04/10/24
--- OUTSIDE RECORDS SUMMARY | 2024-06-28 15:30 | XMS_ITS | Encounter Summary ---
Author Organization [facility] Address [address] [place] [address] Care Team Providers Care Railcar Brake Operator Name Role Phone Sea Jha M.D. Primary Care P elio Reason for Visit * Reason Onset Date Comments Med Question 04/12/2024 Encounter Details Date Type Department Care Team (Late st Contact Info) Description 04/12/2024 Clinical Communication Department of Family Medicine, [facility], in [place], [place] [address] [place] [address] Sea Jha M.B.B.S., MJohanna [address] [place] [address] Med Question Social History Tobacco Use Types Packs/Day Years Used Date Smoking Tobacco: Every Day Cigarettes 0.5 41.6 Started: 11/30/1982 Smokeless Tobacco: Never Alcohol Use Standard Drinks/Week Comments Not Currently 0 (1 standard drink = 0.6 oz pur e alcohol) [facility] Utilities Answer Date Recorded In the past 12 months has e [employer], gas, oil, or water company threatened to [...] week 11/10/2021 How often do you attend [facility] or tenriism services? More than 4 times per year 11/10/2021 Do you belong to any clubs o r organizations such as religion groups, unions, fraternal or athletic groups, or [...] Answer Date Recorded PHQ-2 Score 0 03/03/2024 [facility] of Occupat ional Health - Occupational Stress [...] Date Recorded Employment status Working with temporary [employer] 04/26/2024 Housing Stability Answer Date Recorded What is your living situation today? I have a [facility] place to live 04/26/2024 Education Answer Date Recorded What is the highest level of school you have completed or the highest degree you have received? GED or equivalent Sex and Gender Information Value Date Recorded Sex Assigned at Female 11/06/2021 3:47 PM DRAW STRING KNOTTER Gender Identity Female 04/07/2020 3:36 PM CDT Sexual Orientation Straight 04/07/2020 3: 36 PM CDT documented as of this encounter Miscellaneous Notes * Telephone Encounter - Tasia Clemons R.N. - 04/19/2024 9:06 AM CDT Dispatcher Tow Truck left a detailed message and sent a portal message with Dr. Jha's recommendations: This medication has significant neurological effects. I would recommend staying at this dose for now and re-evaluate in a few months. documented in this encounter Plan of Treatment Upcoming Encounters Date Type Department Care Team (Late st Contact Info) Description 07/05/2024 3:30 PM CDT Office Visit Department of Family Medicine, [facility], in [place], [place] [address] [facility] [place] [phone] Sea Jha M.B.B.S., MJohanna [address] [place] [phone] documented as of this encounter Visit Diagnoses Not on filedocumented in this encounter Additional Health Concerns Assessment Noted Time PHQ-9 Depression Total Score: 0 10/10/20 14 2:25 PM DRAW STRING KNOTTER documented as of this encounter Care Teams Railcar Brake Operator Relationship Specialty Start Date End Date Sea Jha M.B.B.SYanira, MCelina. [address] [facility] [place] [address] PCP - General Family Medicine 06/03/23 documented as of this encounter
--- OUTSIDE RECORDS SUMMARY | 2024-06-28 15:30 | XMS_ITS | Encounter Summary ---
Author Organization [facility] Address [address] [place] [address] Care Team Providers Care Scuba Instructor Name Role Phone Sea Jha M.D. Primary Care P elio Reason for Visit * Reason Comments Pre-op Exam Bilateral Mastectomy on 05/04/[address] [place] [address] Roque - Fax to # [phone] * Appointment Request (Routine) - Closed Specialty Diagnoses / Procedures Referred By Comfort t Referred To Contact Family Medicine Referral ID Status Reason Start Date Expiration Date Visits Re quested Visits Authorized [id number] Closed 04/19/2024 04/19/2025 1 1 Encounter Details Date Type Department Care Team (Late st Contact Info) Description 05/01/2024 7:30 AM CDT Office Visit Department of Family Medicine, [facility], in [place], [place] [address] [place] [address] Sea Jha M.B.B.S., MJohanna [address] [place] [phone] Preoperative Exam (Primary Dx); Diabetes Mellitus Type 2 With Diabetic Neuropathy (HCC); Hyperlipidemia Mixed; Hypothyroidism Acquired Social History Tobacco Use Types Packs/Day Years Used Date Smoking Tobacco: Every Day Cigarettes 0.5 41.6 Started: 11/30/1982 Smokeless Tobacco: Never Tobacco Cessation:Ready to Q uit: No; Counseling Given: Yes Alcohol Use Standard Drinks/Week Comments Not Currently 0 (1 standard drink = 0.6 oz pur e alcohol) [facility] Utilities Answer Date Recorded In [...] often do you attend chur ch or bahai services? More than 4 times per year [...] Answer Date Recorded PHQ-2 Score 0 03/03/2024 [facility] Occupat ional [facility] - Occupational Stress Questionnaire Answer Date [...] Date Recorded Employment status Working with temporary [employer] 04/26/2024 Housing Stability Answer Date Recorded What is your living situation today? I have a [facility] place to live 04/26/2024 Education Answer Date Recorded What is the highest level of school you have completed or the highest degree you have received? GED or equivalent Sex and Gender Information Value Date Recorded Sex Assigned at Female 11/06/2021 3:47 PM LEAD SHOP OPERATOR Gender Identity Female 04/07/2020 3:36 PM CDT Sexual Orientation Straight 04/07/2020 3: 36 PM CDT documented as of this encounter Last Filed Vital Signs Vital Sign Reading Time Taken Comments Blood Pressure 107/75 05/01/2024 7:28 AM CDT Pulse 87 05/01/2024 7:28 AM CDT Temperature 35.8 ??C (96.5 ??F) 05/01/2024 7 :28 AM CDT Respiratory Rate 16 05/01/2024 7:28 AM CDT Oxygen Saturation 97% 05/01/2024 7:2 8 AM CDT Room air, sitting Inhaled Oxygen Concentration - - Weight 85.5 kg (188 lb 7.9 oz) 05/01/2024 7:28 AM CDT Height 169 cm (5' 6.54) 05/01/2024 7:2 8 AM CDT Body Mass Index 29.94 05/01/2024 7:28 AM CDT documented in this encounter H&P Notes * Sea Jha M.B.B.S. MJohanna - 05/01/2024 7:30 AM CDT Adult PRE-OP Evaluation SUBJECTIVE HISTORY OF PRESENT ILLNESS Caroline Coffman Christopher, 1965 presents for pre-operative evaluation and assessment as requested by Dr. Keshia Roque. Proposed procedure: Bilateral Mastectomy Date of Surgery/ Procedure: 05/15/2024 Hospital/Surgical Facility: [facility] * Primary Physician: Vannessa Moore M.D. Type of Anesthesia Anticipated: General anesthesia History of anesthesia complications: NONE} History of abnormal bleeding: NONE History of blood transfusions: NONE PREOPERATIVE QUESTIONS: NO - Do you have a history of heart attack, stroke, stent, bypass or surgery on an artery in the head, neck, heart or legs? NO - Do you ever have any pain or discomfort in your chest? NO - Do you have a history of Congestive Heart Failure? NO - Are you troubled by shortness of breath when: walking on the level/ up a slight hill/ at night? NO - Does your chest ever sound wheezy or whistling? NO - Do you currently have a cold, bronchitis or other respiratory infection? NO - Have you had a cold, bronchitis or other respiratory infection within the last 2 weeks? NO - Do you usually have a cough? NO - Do you sometimes get pains in the calves of your legs when you walk? NO - Do you or anyone in your family have previous history of blood clots? NO - Do you or does anyone in your family have a serious bleeding problem such as prolonged bleeding following surgeries or cuts? NO - Have you ever had problems with anemia or been told to take iron pills? NO - Have you had any abnormal blood loss such as black, tarry or bloody stools, or abnormal vaginal bleeding? NO - Have you ever had a blood transfusion? NO - Have you or any of your relatives ever had problems with anesthesia? NO - Do you have sleep apnea, excessive snoring or daytime drowsiness? NO - Do you have any prosthetic heart valves? NO - Do you have prosthetic joints? NO - Is there any chance that you may be ? 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 100 tablet 11 dulaglutide (Trulicity) 3 mg/0.5 mL injection Inject 0.75 mL (4.5 mg total) under the skin every 7 (seven) days. 6 mL 3 flash glucose scanning reader (FreeStyle Veronika 14 Day [place]) [facility] USE WITH VEORNIKA SENSOR 1 each 0 flash glucose sensor (FREESTYLE VERONIKA) kit Change sensor every 14 days. 6 kit 3 levothyroxine (SYNTHROID, LEVOTHROID) 150 mcg tablet Take levothyroxine 150 mcg Wednesday through Wednesday. 90 tablet 3 levothyroxine (SYNTHROID, LEVOTHROID) 25 mcg tablet Take 25 mcg on Wednesday and Wednesday. 90 tablet 3 pravastatin (PRAVACHOL) 40 mg tablet Take 1 tablet (40 mg total) by mouth daily. 90 tablet 3 pregabalin (LYRICA) 50 mg capsule Take 1 capsule (50 mg total) by mouth 2 (two) times a day. 60 capsule 11 No current facility-administered medications for this visit. OTC products: None, except as noted above Allergies Allergen Reactions Oxycodone GI intolerance Nausea/vomiting Has tolerated hydromorphone Latex Allergy:NO REVIEW OF SYSTEMS GENERAL: No weight gain, no weight loss, no fever in past month, no chills, no sweats, no fatigue. HEENT: No blurred vision, no double vision, no eye pain, no sinus problems, no hoarseness, no difficulty swallowing, no mouth sores, no diminished hearing, no ringing in ears, no enlarged glands. PULMONARY: No shortness of breath, no cough, no wheezing, no sputum, no hemoptysis. CARDIAC: No valve problems, no chest pain, no chest pressure, no rapid beating, no irregular beating, no dependent edema, pain in calves or with walking, no difficulty moving arms and legs. GI: No heartburn, no nausea, no vomiting, no stomach trouble, no constipation, no diarrhea, no blood in BMs, no change in BMs. : No burning/pain with urination, no difficulty starting stream, no difficulty emptying bladder, no excessive urination. MUSCULOSKELETAL: No joint pain, no joint swelling, no joint stiffness, no muscle pain, no muscle stiffness, no back pain, no back stiffness. SKIN: No skin rashes, no skin sores, no change in moles. NEURO: No significant headaches, no slurred speech, no seizures, no dizziness, no loss of consciousness, no memory loss. PSYCH: No mood change. Sleep is okay. Social History Socioeconomic History Marital status: Highest education level: GED or equivalent Tobacco Use Smoking status: Every Day Current packs/day: 0.50 Average packs/day: 0.5 packs/day for 41.4 years (20.7 ttl pk-yrs) Types: Cigarettes Start date: 11/30/1982 Smokeless tobacco: Never Vaping Use Vaping status: never used Substance and Sexual Activity Alcohol use: Not Currently Alcohol/week: 0.0 standard drinks of alcohol Drug use: Never Sexual activity: Not Currently Partners: Male control/protection: Abstinence Social Determinants of Health Food Insecurity: No Food Insecurity (04/26/2024) Hunger Vital Sign Worried About Running Out of Food in the Last Year: Never true Ran Out of Food in the Last Year: Never true Transportation Needs: No Transportation Needs (04/26/2024) PRAPARE - Transportation Lack of Transportation (Medical): No Lack of Transportation (Non-Medical): No Physical Activity: Inactive (04/26/2024) Exercise Vital Sign Days of Exercise per Week: 0 days Minutes of Exercise per Session: 0 min Intimate Partner Violence: Not At Risk (11/10/2021) Humiliation, Afraid, Rape, and Kick questionnaire Fear of Current or Ex-Partner: No Emotionally Abused: No Physically Abused: No Sexually Abused: No Housing Stability: Low Risk (04/26/2024) Housing Stability Housing: Living Situation: I have a steady place to live OBJECTIVE VITAL SIGNS BP 107/75 (BP Location: Right arm, Patient Position: Sitting, Cuff Size: Regular) Pulse 87 Temp(!) 35.8 ??C (Temporal) Resp 16 Ht 169 cm Wt 85.5 kg SpO2 97% Comment: Room air, sitting BMI 29.94 kg/m?? PHYSICAL EXAMINATION GENERAL: Patient is in no distress. Capable of full communication without difficulty. Patient is polite and cooperative. Appropriately dressed and normal hygiene. HEENT: Normocephalic. EOMI, PERRLA, Canals patent, TMs normal. Oropharynx without lesion of mucosa.Pharyngeal rises symmetrically without exudate. NECK: No nodes, no thyromegaly. No bruit auscultated. HEART: Regular rate and rhythm. No murmurs, gallops or rubs noted. LUNGS: Clear to auscultation bilaterally. No expiratory wheeze. No accessory muscles of respirationnoted. ABDOMEN: Nontender to palpation. No hepato-splenomegaly. No mass. Normal bowel sounds in all 4 quadrants. EXTREMITIES: No neurovascular compromise. No cyanosis, clubbing or edema. No abnormal limb length. ENDOCRINE: No purple striae, basilio faces or buffalo hump. NEURO: Grossly intact with no evidence of impairment. SKIN: No lesion, rash or bruising. DIAGNOSTICS EKG: Not indicated due to non-vascular and low risk of event(age <65 without cardiac risk) RISK ASSESSMENT: Cardiovascular Risk: -Patient is able to perform ADL's without assistance and able to walk up a flight of stairs withoutchest pain. -The patient does not have chest pain at rest and with exertion . -Patient does not have a history of congestive heart failure. -The patient does not have a history of stroke and does not have a history of valvular disease. Cardiovascular risk analysis - Diabetes Mellitus, hypercholesterolemia/hyperlipidemia Revised cardiac risk index: 0 point, class 1 and risk of 0.4% of major cardiac event Pulmonary Risk: -In terms of risk factors for pulmonary complication, the patient has no risk factors. Perioperative Complications: -The patient does not have a history of bleeding or clotting problems in the past. -The patient has not had complications from surgeries -The patient does not have a family history of any anesthesia or surgical complications. ASSESSMENT / PLAN IMPRESSION: Reason for surgery/procedure: Treatment of left breast cancer. The proposed surgical procedure is considered LOW(endoscopic, cataract and breast surgery) risk. For above listed surgery and anesthesia: Patient is at MODERATE risk for perioperative/procedure complications. RECOMMENDATIONS: Fasting: Must be NPO for 8 hours preoperatively. Preop Plan: Caroline is here for a preoperative exam. 1. Patient has a history of type 2 diabetes. A1c has improved to 7.3. 2. Patient has diabetic neuropathy which has improved on Lyrica. Will increase from 50 mg twice daily to 75 mg twice daily. 3. Patient will remain on levothyroxine at current dose. She is also on pravastatin which will continue. 4. Patient has been optimized for bilateral mastectomy. Medications: Patient should take her regular medications the morning of surgery unless otherwise instructed. Hold NSAIDs for 5 days prior to surgery. Vannessa Moore M.D. Please contact our office if there are any further questions or information required about this patient. documented in this encounter Plan of Treatment Upcoming Encounters Date Type Department Care Team (Late st Contact Info) Description 07/05/2024 3:30 PM CDT Office Visit Department of Family Medicine, [facility], in [place], [place] [address] [place] [address] Sea Jha M.B.B.S., M.D. [address] [place] [phone] documented as of this encounter Visit Diagnoses Diagnosis Preoperative Exam- Primary Diabetes Mellitus Type 2 With Diabetic Neuropathy (HCC) Hyperlipidemia Mixed Hypothyroidism Acquired documented in this encounter Additional Health Concerns Assessment Noted Time PHQ-9 Depression Total Score: 0 10/10/20 14 2:25 PM LEAD SHOP OPERATOR documented as of this encounter Care Teams Scuba Instructor Relationship Specialty Start Date End Date Sea Jha M.B.B.S., M.D. [address] [place] [phone] PCP - General Family Medicine 06/03/23 documented as of this encounter
--- OUTSIDE RECORDS SUMMARY | 2024-06-28 15:30 | XMS_ITS | Encounter Summary ---
Author Organization [facility] Address [address] [place] [address] Care Team Providers Care Fuels Engineer Name Role Phone Sea Jha M.D. Primary Care P hannamarlon Reason for Visit * Reason Onset Date Comments Post Hospital Follow-up 05/08/2024 Encounter Details Date Type Department Care Team (Latest Contact Info) Description 05/08/2024 Clinical Communication Department of Family Medicine, [facility], in [place], [place] [address] [facility] [place] [phone] Katerin Gomez R.N. [address] [place] [phone] Post Hospital Follow-up Social History Tobacco Use Types Packs/Day Years Used Date Smoking Tobacco: Every Day Cigarettes 0.5 41.6 Started: 11/30/1982 Smokeless Tobacco: Never Alcohol Use Standard Drinks/Week Comments Not Currently 0 (1 standard drink = 0.6 oz pur e alcohol) [facility] Utilities Answer Date Recorded In the past 12 months has e electric, gas, oil, or water company [...] How often do you attend chur or pentecostal services? 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 I have a [facility] place to live 04/26/2024 Education Answer Date Recorded What is the highest level of school you have completed or the highest degree you have received? GED or equivalent Sex and Gender Information Value Date Recorded Sex Assigned at Female 11/06/2021 3:47 PM TRANSPORTATION JOB TITLES Gender Identity Female 04/07/2020 3:36 PM CDT Sexual Orientation Straight 04/07/2020 3: 36 PM CDT documented as of this encounter Miscellaneous Notes * Telephone Encounter - Teressa Buchanan - 05/08/2024 1:17 PM CDT Call attempt made and a voice message was left to call back. * Telephone Encounter - Katerin Gomez RYaniraNYanira - 05/08/2024 11:18 AM CDT SUBJECTIVE REASON FOR CALL Post-Hospital follow-up phone call with patient. Admission Date: Discharge Date: 03/11/24 Discharge Diagnosis: Malignant neoplasm of left breast in female, estrogen receptor negative (HC) General Health Notes today that she is feeling better since discharged from the hospital. Concerns/questions: Patient has no questions or concerns. Symptom Review Pain: Reports acute pain in chest. Describes the pain as sore, with an intensity of 5. Contributingfactors include recent surgery. The patient has tried Ice, tylenol, ibuprofen and dilaudid, which has been helpful. Bowel movements: no bowel movement since discharge. Activities of Daily Living Patient is independent with activities of daily living. Has the patient had a fall since discharge: no. Has ambulation changed since hospitalization: no. Difficulty ambulating: no. The patient lives alone. Patient identified if needing assistance, she could depend on daughter. Wounds/Incisions/Lines, Drains and Airways Incision: bilateral chest. Signs or symptoms of infection: no. Incision care instructions reviewed:yes. LDA: AV drain x 2. Signs or symptoms of infection: no. LDA care instructions reviewed: yes. Medication Status Current medication list was reviewed and updated as needed. Reports medication is self managed. Medications concerns: none. Medication compliance for current medications: yes. High Risk Medications Controlled Substances: Name: Dilaudid. Taking as instructed: yes. Experiencing side effects: no. This medication was added during this hospital stay: yes.. Diabetic Medications: type: injection. Home glucose monitoring: yes; frequency: freestyle inna; last completed: this morning; result 148. Difficulty managing diabetes since discharge: no. Home Services Utilized The patient is not currently receiving home health services. Equipment/Supplies for Home Use None ordered Assessment/Plan Caroline is doing well today. Her pain is tolerable. She is eating and drinking. She has not had a BM, but is passing flatus and taking stool softeners. Her daughter is staying with her and helping with drain care. AV 1 had 0.5 ml and AV 2 had 1 ml of serosanguinous drainage. She has had a couple of clots and they are able to clear by stripping. She has showered today and reports incisions look good.She gets up and walks laps around the house. Her blood sugars have been normal as well. Follow-up Appointment PCP Follow-up appointment scheduled: will have schedulers help set up Specialty Follow-up scheduled with surgical oncology . Recommendations Referral actions: disease education. Additional recommendations: home care instructions reinforced or provided. Disposition/Recommendation: self-care is appropriate at this time, patient encouraged to call back with questions and recommended continue engagement in self-management activities. Education: patient/caller able to teach back. Caller agreeable to plan of care: yes. documented in this encounter Plan of Treatment Upcoming Encounters Date Type Department Care Team (Late st Contact Info) Description 07/05/2024 3:30 PM CDT Office Visit Department of Family Medicine, [facility], in [place], [place] [address] [place] [phone] Sea Jha M.B.B.S., MJohanna [address] [place] [phone] documented as of this encounter Visit Diagnoses Not on filedocumented in this encounter Additional Health Concerns Assessment Noted Time PHQ-9 Depression Total Score: 0 10/10/20 14 2:25 PM TRANSPORTATION JOB TITLES documented as of this encounter Care Teams Fuels Engineer Relationship Specialty Start Date End Date Sea Jha M.B.BDwight, MCelina. [address] [place] [phone] PCP - General Family Medicine 06/03/23 documented as of this encounter
== END 2024-06-28 15:27 | disposition home or self-care (01) ==
LOC: RAD 15:27
PROVIDERS: PCP Family Medicine; Visit Provider Internal Medicine Hematology & Oncology
DX: C50.912 Malignant neoplasm of unspecified site of left female breast (principal)
CPT/HCPCS: 77080

== ENCOUNTER 2024-07-19 13:30 | Outpatient (RCR) | payer BC, SELFPAY ==
--- NOTE | 2024-03-06 15:58 | ONC.NURNOTE ---
Addendum entered by Alysha Juárez 03/08/24 09:45: 1. Rad/Onc consult 03/15 2. PET/CT 03/23 at [facility] 3. Follow up with Dr. Conway to review results 03/29 Original Note: Accompanied patient to her oncology visit. 1. Referral to Radiation Oncology and supporting records faxed to [phone]. 2. Order for PET/CT and supporting documents faxed to [facility] [phone]. We will wait to schedule Oncology follow up until scan and Rad Onc appointment have been scheduled.
--- NOTE | 2024-03-23 11:13 | ONC.NURNOTE ---
PET denied-Let Dr. Conway know that peer to peer review needed and decision was to do a CT scan instead of PET. Patient notified and will await diagnostic call
--- NOTE | 2024-03-30 14:21 | ONC.NURNOTE ---
Patient is requesting a referral to surgery for prophylactic bilateral mastectomy and immediate reconstruction. I placed a call to her surgeon in [place], Dr. Guerrero. They do not have immediate reconstruction as an option. At the request of the patient, a referral and supporting documents was faxed to [facility]. They will call patient to schedule consult. Patient verbalizes understanding.
--- NOTE | 2024-05-11 09:23 | ONC.NURNOTE ---
Call from patient to discuss her mastectomy pathology. Patient states she was notified by [facility] that they found cancer in her left breast. 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 I explained what DCIS is and the likely treatment. Patient has follow up with Dr. Conway on 06/07 and this will be discussed further. Patient verbalizes understanding.
[2024-06-07] MEDS: HEPARIN 500 UNIT/5 ML SYRINGE IVF (09:46)
[2024-06-07] MEDS: SODIUM CHLORIDE 0.9 % (FLUSH) 10 ML SYRINGE IVF (09:46)
[2024-06-08 19:09] LABS: Estradiol Premenol Female <20 pg/mL
[2024-06-08 21:25] LABS: Follicle Stimulating Hormone 65.8 IU/L
== END 2024-09-02 23:59 | disposition home or self-care (01) ==
LOC: CCIC 13:30
PROVIDERS: PCP Family Medicine; Referring Provider Family Medicine; Visit Provider Internal Medicine Hematology & Oncology
DX: C50.912 Malignant neoplasm of unspecified site of left female breast (principal); Z17.0 Estrogen receptor positive status [ER+]; C34.91 Malignant neoplasm of unspecified part of right bronchus or lung; Z72.0 Tobacco use; C73 Malignant neoplasm of thyroid gland
CPT/HCPCS: 36415; 36591; 82670; 83001; 83002; 99211; 99213; 99214; 99215; G0463; J1642

== ENCOUNTER 2024-09-06 14:19 | Outpatient (CLI) | payer BC, SELFPAY ==
--- OUTSIDE RECORDS SUMMARY | 2024-09-06 14:22 | XMS_ITS | Encounter Summary ---
Author Organization [facility] Address [address] [place] [address] Care Team Providers Care Outboard Motor Assembler Name Role Phone Sea Jha, MJohanna Primary Care P elio Reason for Visit * Reason Onset Date Comments Results 09/04/2024 09/04/24 A1C res ults Encounter Details Date Type Department Care Team (Latest Contact Info) Description 09/04/2024 Clinical Communication Department of Family Medicine, [facility], in [place], [place] [address] [place] [phone] Sea Jha M.B.BYaniraSYanira, M.D. [address] [place] [phone] Results (09/04/24 A1C results) Social History Tobacco Use Types Packs/Day Years Used Date Smoking Tobacco: Every Day Cigarettes 0.3 3.9 Started: 10/06/2020 Smokeless Tobacco: Never Alcohol Use Standard Drinks/Week Comments Not Currently 0 (1 standard drink = 0.6 oz pur e alcohol) [facility] Utilities Answer Date Recorded In the past 12 months has e [employer], gas, oil, or water [employer] threatened to shut off services in your [...] often do you attend chur ch or pentecostalism services? More than 4 times per year 11/10/2021 Do you belong to any clubs o r organizations such as yarsani groups, unions, fraternal or athletic groups, or [...] Answer Date Recorded PHQ-2 Score 0 03/03/2024 [facility] of Occupat ional Health - Occupational Stress [...] your living situation today? I have a [facility] place to live 04/26/2024 Education Answer Date Recorded What is the highest level of school you have completed or the highest degree you have received? GED or equivalent Comments No Sex and Gender Information Value Date Recorded Sex Assigned at Female 11/06/2021 3:47 PM SOLID WASTE FACILITY OPERATOR Legal Sex Female 2:15 PM SOLID WASTE FACILITY OPERATOR Gender Identity Female 04/07/2020 3:36 PM CDT Sexual Orientation Straight 04/07/2020 3: 36 PM CDT documented as of this encounter Miscellaneous Notes * Telephone Encounter - Magy Onofre L.P.N. - 09/04/2024 2:52 PM CDT Notified patient via portal of: A1c shows no significant change from 3 months ago. Please continue with a low-carbohydrate diet. Please continue to be consistent with medications and exercise as tolerated. documented in this encounter Plan of Treatment Not on file documented as of this encounter Visit Diagnoses Not on filedocumented in this encounter Additional Health Concerns Assessment Noted Time PHQ-9 Depression Total Score: 0 10/10/20 14 2:25 PM SOLID WASTE FACILITY OPERATOR documented as of this encounter Care Teams Outboard Motor Assembler Relationship Specialty Start Date End Date Sea Jha M.B.B.S., MCelina. [address] [place] [phone] PCP - General Family Medicine 06/03/23 documented as of this encounter
--- OUTSIDE RECORDS SUMMARY | 2024-09-06 14:22 | XMS_ITS | Encounter Summary ---
Author Organization [facility] Address [address] [place] [address] Care Team Providers Care Sr. Media Manager Name Role Phone Sea Jha M.D. Primary Care P elio Encounter Details Date Type Department Care Team (Latest Contact Info) Description 09/04/2024 9:55 AM CDT - 09/04/2024 11:59 PM CDT Hospital Encounter Department of Laboratory Medicine in [place], [place] [address] [place] [phone] Sea Jha M.B.B.S., MJohanna [address] [place] [phone] Diabetes Mellitus Type 2 With Diabetic Neuropathy (HCC) Discharge Disposition: Home or Self Care Social History Tobacco Use Types Packs/Day Years Used Date Smoking Tobacco: Every Day Cigarettes 0.3 3.9 Started: 10/06/2020 Smokeless Tobacco: Never Alcohol Use Standard Drinks/Week Comments Not Currently 0 (1 standard drink = 0.6 oz pur e alcohol) [facility] Utilities Answer Date Recorded In the past 12 months has e [employer], gas, oil, or water company threatened to [...] How often do you attend chur or jain services? More than 4 times per year 11/10/2021 Do you belong to any clubs o r organizations such as hindu groups, unions, fraternal or athletic groups, or [...] Answer Date Recorded PHQ-2 Score 0 03/03/2024 [facility] of Occupat ional Health - Occupational Stress [...] your living situation today? I have a [facility] place to live 04/26/2024 Education Answer Date Recorded What is the highest level of school you have completed or the highest degree you have received? GED or equivalent Comments No Sex and Gender Information Value Date Recorded Sex Assigned at Female 11/06/2021 3:47 PM WEIGHT SHIFTER Legal Sex Female 2:15 PM WEIGHT SHIFTER Gender Identity Female 04/07/2020 3:36 PM CDT Sexual Orientation Straight 04/07/2020 3: 36 PM CDT documented as of this encounter Medications at Time of Discharge acetaminophen (TYLENOL) 500 mg tablet Take 2 tablets (1,000 mg total) by mouth every 6 (six) hours as needed for pain. 100 tablet 11 2 DULoxetine (Cymbalta) [address] capsuleIndications :Diabetes Mellitus Type 2 With Diabetic Neuropathy (HCC) Take 1 capsule (20 mg total) by mouth 2 (two) times a day. 60 capsule 1 4 10/15/20 24 flash glucose scanning reader (FreeStyle Veronika 14 Day [place]) miscIndications:Di abetes Mellitus Type 2 Hyperglycemia (HCC) USE WITH VERONIKA SENSOR 1 each 2 flash glucose sensor kitIndications:Mimi torin Mellitus Type 2 Hyperglycemia (HCC) Change sensor every 14 days. 6 kit 3 4 ibuprofen (MOTRIN) 600 mg tablet Take 600 mg by mouth every 6 (six) hours as needed. 4 levothyroxine (SYNTHROID, LEVOTHROID) 150 mcg tabletIndications: Hypothyroidism Acquired Take levothyroxine 150 mcg Wednesday through Wednesday. 90 tablet 3 4 levothyroxine (SYNTHROID, LEVOTHROID) 25 mcg tabletIndications: Hypothyroidism Acquired Take 25 mcg on Wednesday and Wednesday. 90 tablet 3 4 pravastatin (PravachoL) 40 mg tabletIndications: Hyperlipidemia Mixed Take 1 tablet (40 mg total) by mouth daily. 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 270 capsule 3 4 07/05/20 Trulicity 4.5 mg/0.5 mL injectionIndicatio ns:Diabetes Mellitus Type 2 With Diabetic Neuropathy (HCC) Inject 0.5 mL (4.5 mg total) under the skin every 7 (seven) days. 6 mL 3 4 08/16/20 25 documented as of this encounter Plan of Treatment Not on file documented as of this encounter Procedures Procedure Name Priority Date/Time Associated Diagnosis Comments HEMOGLOBIN A1C, B Routine 09/04/2024 10: 08 AM CDT Diabetes Mellitus Type 2 With Diabetic Neuropathy (HCC) documented in this encounter Results * (ABNORMAL) Hemoglobin A1c (09/04/2024 10:08 AM CDT) Hemoglobin A1c, B 7.3(H) 4.2 - 5.6 % 09/04/2024 1:49 PM CDT [facility] Comment: Hemoglobin A1c values greater than or equal to 6.5 percent are diagnostic for diabetes mellitus. ??Diagnosis should be confirmed by repeat testing. ??In diabetic patients, HbA1c goals should be discussed with healthcare provider. Blood (Blood, Venous) 09/04/2024 10:08 AM CDT 09/04/2024 1:06 PM CDT Sea Hurd M.D. LAB BLOOD ADD-O N Final Result Performing Organization Address City/State/[facility] Co de Phone Number [facility] [address] [place] [address], [facility] in [place] [address] [place] [address] documented in this encounter Visit Diagnoses Diagnosis Diabetes Mellitus Type 2 With Diabetic Neuropathy (HCC) documented in this encounter Additional Health Concerns Assessment Noted Time PHQ-9 Depression Total Score: 0 10/10/20 14 2:25 PM WEIGHT SHIFTER documented as of this encounter Care Teams Sr. Media Manager Relationship Specialty Start Date End Date Sea Jha M.B.B.S., M.D. [address] [place] [phone] PCP - General Family Medicine 06/03/23 documented as of this encounter
--- OUTSIDE RECORDS SUMMARY | 2024-09-06 14:22 | XMS_ITS ---
Author Organization [facility] Address [address] [place] [address] Care Team Providers Care Latin Dancer Name Role Phone Unavailable Unavailable Unavailable Surgery Details Not on file Complications Check Surgery Details section. Procedure Estimated Blood Loss Check Surgery Details section. Procedure Findings Check Surgery Details section. Procedure Specimens Taken Check Surgery Details section.
--- OUTSIDE RECORDS SUMMARY | 2024-09-06 14:22 | XMS_ITS | Encounter Summary ---
Author Organization [facility] Address [address] [place] [address] Care Team Providers Care Hospital Unit Coordinator Name Role Phone Sea Jha M.D. Primary Care P elio Encounter Details Date Type Department Care Team (Latest Contact Info) Description 08/16/2024 3:50 PM CDT - 08/16/2024 11:59 PM CDT Hospital Encounter Department of Laboratory Medicine in [place], [place] [address] [place] [address] Sea Jha M.B.B.S., Isabella [address] [place] [phone] Diabetes Mellitus Type 2 Hyperglycemia (HCC) Discharge Disposition: Home or Self Care Social History Tobacco Use Types Packs/Day Years Used Date Smoking Tobacco: Every Day Cigarettes 0.3 3.9 Started: 10/06/2020 Smokeless Tobacco: Never Alcohol Use Standard Drinks/Week Comments Not Currently 0 (1 standard drink = 0.6 oz pur e alcohol) [facility] Utilities Answer Date Recorded In the past 12 months has e [employer], gas, oil, or water [employer] threatened to shut off services in your [...] How often do you attend chur or rastafari services? More than 4 times per year 11/10/2021 Do you belong to any clubs o r organizations such as buddhism groups, unions, fraternal or athletic groups, or [...] Answer Date Recorded PHQ-2 Score 0 03/03/2024 [facility] of Occupat ional Health - Occupational Stress [...] your living situation today? I have a [facility] place to live 04/26/2024 Education Answer Date Recorded What is the highest level of school you have completed or the highest degree you have received? GED or equivalent Comments No Sex and Gender Information Value Date Recorded Sex Assigned at Female 11/06/2021 3:47 PM BPM ANALYST Legal Sex Female 2:15 PM BPM ANALYST Gender Identity Female 04/07/2020 3:36 PM CDT [...] 4 10/15/20 24 flash glucose scanning reader ([employer]tyle Veronika 14 Day [place]) miscIndications:Di abetes Mellitus Type 2 Hyperglycemia (HCC) USE WITH VERONIKA SENSOR 1 each 2 flash glucose sensor kitIndications:Mimi harkins Mellitus Type 2 Hyperglycemia (HCC) Change sensor [...] (seven) days. 6 mL 3 4 08/16/20 documented as of this encounter Plan of Treatment Not on file documented as of this encounter Procedures Procedure Name Priority Date/Time Associated Diagnosis Comments ALBUMIN, RANDOM, U Routine 08/16/2024 3: 53 PM CDT Diabetes Mellitus Type 2 Hyperglycemia (HCC) documented in this encounter Results * Albumin, Random, Urine (08/16/2024 3:53 PM CDT) Microalbumin <12.0 mg/L 08/16/2024 6:09 PM CDT [facility] Comment:If clinically indica keith, contact the lab for additional testing. Creatinine 77 mg/dL 08/16/2024 6:09 PM CDT [facility] Albumin/Creatinine Ratio <16 <25 mg/g 08/16/2024 6:09 PM CDT [facility] Comment: This ratio may not correspond with the reference range because one or both of the values used to calculate the ratio was above or below the quantification limits. Urine (Urine, Midstream) 08/16/2024 3:53 PM CDT 08/16/2024 5:40 PM CDT us Sea Hurd M.D. LAB URINE ORDER RIOS Final Result [facility] [address] [address], [facility] [place] [address] [place] [address] documented in this encounter Visit Diagnoses Diagnosis Diabetes Mellitus Type 2 Hyperglycemia (HCC) documented in this encounter Additional Health Concerns Assessment Noted Time PHQ-9 Depression Total Score: 0 10/10/20 14 2:25 PM BPM ANALYST documented as of this encounter Care Teams Hospital Unit Coordinator Relationship Specialty Start Date End Date Sea Jha M.B.B.S., M.D. [address] [place] [phone] PCP - General Family Medicine 06/03/23 documented as of this encounter
--- OUTSIDE RECORDS SUMMARY | 2024-09-06 14:22 | XMS_ITS | Encounter Summary ---
Author Organization [facility] Address [address] [place] [address] Care Team Providers Care Compliance Tester Name Role Phone Sea Jha M.D. Primary Care Shannon marcelinovijay Reason for Referral * Outpatient (Routine) - Authorized Specialty Diagnoses / Procedures Referred By Comfort ellsworth Referred To Contact Neurology Diagnoses Diabetes Mellitus Type 2 With Diabetic Neuropathy (HCC) Sea Jha M.B.B.S., M.D. [address] [place] [address] Phone: tel: fax: Referral ID Status Reason Start Date Expiration Date Visits Requested Visits Authorized [id number] Authorized Patient Preference 08/16/2024 02/15/2026 1 1 Reason for Visit * Reason Comments Follow-up States follow up fro m complaints of neuropathy. States her Lyrica was increased to 150 mg twice a day, and this has not been helping. Referral Going to [place] in September would like Neurolgoy referral there. [facility]. PH. [phone]. Encounter Details Date Type Department Care Team (Latest Contact Info) Description 08/16/2024 3:30 PM CDT Office Visit Department of Family Medicine, [facility], in [place], [place] [address] [place] [address] Sea Jha M.B.B.S., M.D. [address] [place] [address] [place] [phone] Hypothyroidism Acquired (Primary Dx); Diabetes Mellitus Type 2 With Diabetic Neuropathy (HCC); Hyperlipidemia Mixed Social History Tobacco Use Types Packs/Day Years Used Date Smoking Tobacco: Every Day Cigarettes 0.3 3.9 Started: 10/06/2020 Smokeless Tobacco: Never Tobacco Cessation:Ready to Q uit: No; Counseling Given: Yes Alcohol Use Standard Drinks/Week Comments Not Currently 0 (1 standard drink = 0.6 oz pur e alcohol) [facility] Utilities Answer Date Recorded In the past 12 months has e [employer], gas, oil, or water [employer] threatened to shut off services in your [...] often do you attend chur ch or yazidism services? More than 4 times per year 11/10/2021 Do you belong to any clubs o r organizations such as sikh groups, unions, fraternal or athletic groups, or [...] Answer Date Recorded PHQ-2 Score 0 03/03/2024 [facility] Occupat ional [facility] - Occupational [...] Sex Assigned at Female 11/06/2021 3:47 PM KINESIOLOGY PROFESSOR Legal Sex Female 2:15 PM KINESIOLOGY PROFESSOR Gender Identity Female 04/07/2020 3:36 PM CDT Sexual Orientation Straight 04/07/2020 3: 36 PM CDT documented as of this encounter Last Filed Vital Signs Vital Sign Reading Time Taken Comments Blood Pressure 105/74 08/16/2024 3:15 PM CDT Pulse 87 08/16/2024 3:15 PM CDT Temperature 35.6 ??C (96 ??F) 08/16/2024 3:15 PM CDT Respiratory Rate 18 08/16/2024 3:15 PM CDT Oxygen Saturation - - Inhaled Oxygen Concentration - - Weight 88 kg (194 lb) 08/16/2024 3:15 PM CDT ernestine es on Height 168.4 cm (5' 6.3) 08/16/2024 3:15 PM CDT shoes on Body Mass Index 31.03 08/16/2024 3:15 PM CDT documented in this encounter Progress Notes * Sea Jha M.B.B.S., M.D. - 08/16/2024 3:30 PM CDT SUBJECTIVE CHIEF COMPLAINT / REASON FOR VISIT Caroline White is a 59 y.o. female who presents for evaluation of Follow-up (States follow up from complaints of neuropathy. States her Lyrica was increased to 150 mg twice a day, and this has not been helping.) and Referral (Going to [place] in September would like Neurolgoy referral there. [facility]. PH. [phone].). HISTORY OF PRESENT ILLNESS Caroline White is a 59-year-old female with a history of type 2 diabetes and lung cancer status post chemotherapy. Patient has a history of peripheral neuropathy and is on pregabalin. She returns today reporting a although she has some relief on this medication, she continues to experience significant numbness in both lower extremities. She also has burning pain at night which interferes with sleep. Patient has a history of hypothyroidism as well. She reports consistency with levothyroxine. Her last TSH in February was within normal limits. She is on Trulicity and reports consistency with this medication. She also maintains a low-carbohydrate diet. She denies any fatigue, shortness for breath, chest pain or palpitations. She denies focal weaknessor change to her vision. The following portions of the patient's history were reviewed and updated as appropriate: allergies, current medications, family history, medical history, social history, surgical history, and problem list. REVIEW OF SYSTEMS Pertinent items are noted in HPI. OBJECTIVE VITAL SIGNS BP 105/74 (BP Location: Right arm, Patient Position: Sitting, Cuff Size: Large) Pulse 87 Temp (!) 35.6 ??C (Temporal) Resp 18 Ht 168.4 cm Comment: shoes on Wt 88 kg Comment: shoes on BMI 31.03 kg/m?? Body mass index is 31.03 kg/m??. PHYSICAL EXAMINATION General appearance: alert, cooperative, and no distress Head: normocephalic, without obvious abnormality Eyes: conjunctivae/corneas clear Lungs: clear to auscultation bilaterally Heart: regular rate and rhythm ASSESSMENT / PLAN #1 Hypothyroidism Acquired #2 Diabetes Mellitus Type 2 With Diabetic Neuropathy (HCC) #3 Hyperlipidemia Mixed Caroline continues to experience significant neuropathy even on pregabalin. I will start her on duloxetine. I have also given her a referral to Neurology group in [place]. Shedid try to schedule locally but there were no appointments available prior to her moving down [facility]. She will continue on current dose of Trulicity as well. Her last A1c in May was 7.3. We will recheck this in the next month. Will go ahead and recheck TSH today. In the meantime, she will continue current dose of levothyroxine. documented in this encounter Plan of Treatment Not on file documented as of this encounter Results * (ABNORMAL) Hemoglobin A1c [...] ADD-O N Final Result Performing Organization Address [facility] Co de Phone Number [facility] [address] [place] [address], [facility] [place] [address] * Thyroid Function [place] (08/16/2024 3:56 PM CDT) TSH, Sensitive 2.4 0.3 - 4.2 mIU/L 08/16/2024 6:14 PM CDT [facility] Blood (Blood, Venous) 08/16/2024 3:56 PM CDT 08/16/2024 5:41 PM CDT Sea Hurd M.D. LAB BLOOD ADD-O N Final Result Performing Organization Address [facility] Co de Phone Number [facility] [address] [place] [address], [facility] in [place] [address] [address] documented in this encounter Visit Diagnoses Diagnosis Hypothyroidism Acquired- Primary Diabetes Mellitus Type 2 With Diabetic Neuropathy (HCC) Hyperlipidemia Mixed documented in this encounter Additional Health Concerns Assessment Noted Time PHQ-9 Depression Total Score: 0 10/10/20 14 2:25 PM KINESIOLOGY PROFESSOR documented as of this encounter Care Teams Compliance Tester Relationship Specialty Start Date End Date Sea Jha M.B.B.S., Bubba. [address] [place] [phone] PCP - General Family Medicine 06/03/23 documented as of this encounter
--- OUTSIDE RECORDS SUMMARY | 2024-09-06 14:22 | XMS_ITS | Encounter Summary ---
Author Organization [facility] Address [address] [place] [address] Care Team Providers Care Alcoholism Worker Name Role Phone Sea Jha M.D. Primary Care P hannacaitlynvijay Reason for Visit * Reason Onset Date Comments Med Question 08/09/2024 Encounter Details Date Type Department Care Team (Late st Contact Info) Description 08/09/2024 Clinical Communication Department of Family Medicine, [facility], in [place], [place] [address] [place] [address] Sea Jha M.B.B.S., Isabella [address] [place] [address] Med Question Social History Tobacco Use Types Packs/Day Years Used Date Smoking Tobacco: Every Day Cigarettes 0.5 41.8 Started: 11/30/1982 Smokeless Tobacco: Never Alcohol Use Standard Drinks/Week Comments Not Currently 0 (1 standard drink = 0.6 oz pur e alcohol) [facility] Utilities Answer Date Recorded In the past 12 months has e [employer], gas, oil, or water company threatened to [...] 11/10/2021 How often do you attend [facility] or bah[employer] services? 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 I have a [facility] place to live 04/26/2024 Education Answer Date Recorded What is the highest level of school you have completed or the highest degree you have received? GED or equivalent Comments No Sex and Gender Information Value Date Recorded Sex Assigned at Female 11/06/2021 3:47 PM FUEL MANAGER Legal Sex Female 2:15 PM FUEL MANAGER Gender Identity Female 04/07/2020 3:36 PM CDT Sexual Orientation Straight 04/07/2020 3: 36 PM CDT documented as of this encounter Miscellaneous Notes * Telephone Encounter - Eloise Hickey, L.P.N. - 08/11/2024 2:23 PM CDT Spoke with Dr. Jha and he said to let patient know to take 2 caps in the morning and 2 caps inthe evening and see how that works for her over the weekend. 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 [address] [place] [phone] PCP - General Family Medicine 06/03/23 documented as of this encounter
--- OUTSIDE RECORDS SUMMARY | 2024-09-06 14:22 | XMS_ITS | Encounter Summary ---
Author Organization [facility] Address [address] [place] [address] Care Team Providers Care Cripple Cutter Name Role Phone Sea Jha M.D. Primary Care Shannon ballard Reason for Referral * Outpatient (Routine) - Authorized Specialty Diagnoses / Procedures Referred By Comfort ellsworth Referred To Contact Family Medicine Diagnoses Diabetes Mellitus Type 2 Hyperglycemia (HCC) Sea Jha M.B.B.S., M.D. [address] [place] [address] Phone: tel: fax: [facility] Referral ID Status Reason Start Date Expiration Date V isits Requested Visits Authorized [id number] Authorized 06/26/2024 12/26/2025 1 1 Encounter Details Date Type Department Care Team (Late st Contact Info) Description 06/26/2024 Orders Only Department of Laboratory Medicine in [place], [place] [address] [place] [address] Sea Jha M.B.B.S., M.D. [address] [place] [address] Diabetes Mellitus Type 2 Hyperglycemia (HCC) (Primary Dx) Social History Tobacco Use Types Packs/Day Years Used Date Smoking Tobacco: Every Day Cigarettes 0.5 41.8 Started: 11/30/1982 Smokeless Tobacco: Never Alcohol Use Standard Drinks/Week Comments Not Currently 0 (1 standard drink = 0.6 oz pur e alcohol) [facility] Utilities Answer Date Recorded In the [...] How often do you attend chur or synagogue services? More than 4 times per year 11/10/2021 Do you belong to any clubs o r organizations such as voodoo groups, unions, fraternal or athletic groups, or [...] Answer Date Recorded PHQ-2 Score 0 03/03/2024 [facility] of Occupat ional [facility] - Occupational Stress Questionnaire Answer Date [...] Sex Assigned at Female 11/06/2021 3:47 PM HEEL BUFFER Legal Sex Female 2:15 PM HEEL BUFFER Gender Identity Female 04/07/2020 3:36 PM CDT Sexual Orientation Straight 04/07/2020 3: 36 PM CDT documented as of this encounter Plan of Treatment Scheduled Orders Name Type Priority Associated Diagnoses [...] Total Score: 0 10/10/20 14 2:25 PM HEEL BUFFER documented as of this encounter Care Teams Cripple Cutter Relationship Specialty Start Date End Date Sea Jha M.B.BYaniraSYanira, MCelina. [address] [place] [phone] PCP - General Family Medicine 06/03/23 documented as of this encounter
--- OUTSIDE RECORDS SUMMARY | 2024-09-06 14:22 | XMS_ITS | Referral Summary ---
Author Organization [facility] Address [address] [place] [address] Care Team Providers Care Historic Preservationist Name Role Phone Sea Jha M.D. Primary Care P elio Source Comments Patient records contain information from all sites at [facility]. For routine questions regarding patient records, call [phone] during business hours, M-F 8:00 AM - 5:00 PM Central Time. Record requests for emergency care only can be directed to [phone] at any time.[facility] Encounters Date Type Department Care Team Description 09/04/2024 Clinical Communication Department of Family Medicine, [facility], in [address] [phone] Sea Jha M.B.B.S., M.D. Results (09/04/24 A1C results) 09/04/2024 9:55 AM CDT - 09/04/2024 11:59 PM CDT Hospital Encounter Department of Laboratory Medicine in [address] [phone] Sea Jha M.B.B.S. MJohanna Diabetes Mellitus Type 2 With Diabetic Neuropathy (HCC) Discharge Disposition: Home or Self Care 08/16/2024 3:50 PM CDT - 08/16/2024 11:59 PM CDT Hospital Encounter Department of Laboratory Medicine in [address] [phone] Sea Jha M.B.B.S., M.D. Hypothyroidism Acquired Discharge Disposition: Home or Self Care 08/16/2024 3:50 PM CDT - 08/16/2024 11:59 PM CDT Hospital Encounter Department of Laboratory Medicine in [address] [place] [address] Sea Jha M.B.B.S., M.D. Diabetes Mellitus Type 2 Hyperglycemia (HCC) Discharge Disposition: Home or Self Care 08/16/2024 3:30 PM CDT Office Visit Department of Family Medicine, [facility], in [address] [phone] Sea Jha M.B.B.S., M.D. Hypothyroidism Acquired (Primary Dx); Diabetes Mellitus Type 2 With Diabetic Neuropathy (HCC); Hyperlipidemia Mixed 08/09/2024 Clinical Communication Department of Family Medicine, [facility], in [address] [place] [address] Sea Jha M.B.B.S., M.D. [facility] 07/05/2024 3:30 PM CDT Office Visit Department of 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 Sea Jha M.B.B.S., M.D. Diabetes Mellitus Type 2 Hyperglycemia (HCC) 06/26/2024 Orders Only Department of Laboratory Medicine in [address] [place] [address] Sea Jha M.B.BIsabella Quintanilla Diabetes Mellitus Type 2 Hyperglycemia (HCC) (Primary Dx) 06/19/2024 1:59 PM CDT - 06/19/2024 11:59 PM CDT Hospital Encounter Department of Laboratory Medicine in [address] [place] [address] Sea Jha M.B.B.S., M.D. Diabetes Mellitus Type 2 Hyperglycemia (HCC) Discharge Disposition: Home or Self Care 06/08/2024 Clinical Communication Department of Family Medicine, [facility], in [place], [place] [address] [place] [address] Sea Jha M.B.B.S., M.D. Communication from Last 3 Months Allergies Active Allergy Reactions Criticality Noted Date Comments Oxycodone GI intolerance Low 10/12/2019 Nausea/vomiting Has tolerated hydromorphone Medications * This document contains information received from the source organization and may not represent a complete record from that organization. acetaminophen (TYLENOL) 500 mg tablet Take 2 tablets (1,000 mg total) by mouth every 6 (six) hours as needed for pain. 100 tablet 11 Active flash glucose scanning reader ([employer] Veronika 14 Day [place]) miscIndications: Diabetes Mellitus Type 2 Hyperglycemia (HCC) USE WITH VERONIKA SENSOR 1 each Active levothyroxine (SYNTHROID, LEVOTHROID) 25 mcg tabletIndication s:Hypothyroidism Acquired Take 25 mcg on Wednesday and Wednesday. 90 tablet 3 024 Active levothyroxine (SYNTHROID, LEVOTHROID) 150 mcg tabletIndication s:Hypothyroidism Acquired Take levothyroxine 150 mcg Wednesday through Wednesday. 90 tablet 3 024 Active ibuprofen (MOTRIN) 600 mg tablet Take 600 mg by mouth every 6 (six) hours as needed. Active flash glucose sensor kitIndications:D iabetes Mellitus Type 2 Hyperglycemia (HCC) Change sensor every 14 days. 6 kit 3 024 Active pregabalin (Lyrica) 75 mg capsuleIndicatio ns:Polyneuropath y Due To Drug (HCC) Take 1 capsule (75 mg total) by mouth 3 (three) times a day. 270 capsule 3 024 2024 Active Additional Information Patient taking differently: 150 mgoral2 times daily, Informant: Self, Reported on 08/16/2024 Trulicity 4.5 mg/0.5 mL injectionIndicat ions:Diabetes Mellitus Type 2 With Diabetic Neuropathy (HCC) Inject 0.5 mL (4.5 mg total) under the skin every 7 (seven) days. 6 mL 3 024 2024 Active pravastatin (PravachoL) 40 mg tabletIndication s:Hyperlipidemia Mixed Take 1 tablet (40 mg total) by mouth daily. 90 tablet 3 Active DULoxetine (Cymbalta) [address] capsuleIndicatio ns:Diabetes Mellitus Type 2 With Diabetic Neuropathy (HCC) Take 1 capsule (20 mg total) by mouth 2 (two) times a day. 60 capsule 1 024 2023 Active pravastatin (PRAVACHOL) 40 mg tabletIndication s:Hyperlipidemia Mixed Take 1 tablet (40 mg total) by mouth daily. 90 tablet 3 023 2023 Discontinued(R eorder) dulaglutide (Trulicity) 3 mg/0.5 mL injectionIndicat ions:Diabetes Mellitus Type 2 Hyperglycemia (HCC) Inject 0.75 mL (4.5 mg total) under the skin every 7 (seven) days. 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 Apply to both feet. 28.3 g 024 2023 Discontinued(T herapy completed) Trulicity 4.5 mg/0.5 mL injection Inject 4.5 mg under the skin every 7 (seven) days. 024 2023 Discontinued Active Problems Problem Noted Date Diagnosed Date Malignant Neoplasm Of Breast Female Left Cancer Staging:Pathologic stage from 09/08/2023:Stage IB(pT1c, pN0(sn), cM0, G3, ER-, TN-, HER2-) - Unsigned Obesity Body Mass Index [...] (04/24/2021): Added automatically from request for surgery [id number] Pain Shoulder Left 04/16/2020 1 Pulmonary Nodule Computed To mography Indeterminate 10/12/2019 02/05/2020 Nodule Pulmonary 09/25/2019 02/05/2020 Overview (09/25/2019): Added automatically from request for surgery [id number] Mass Adrenal 09/22/2019 04/09/2020 Overview (09/22/2019): Added automatically from request for surgery [id number] Gastroesophageal Reflux Dise ase With Esophagitis 08/14/2019 [...] drink = 0.6 oz pur e alcohol) [facility] Utilities Answer Date Recorded In the past 12 months has e [employer], gas, oil, or water [employer] threatened to shut off services in your [...] often do you attend chur ch or buddhism services? More than 4 times per year 11/10/2021 Do you belong to any clubs o r organizations such as moravian groups, unions, fraternal or athletic groups, or [...] Answer Date Recorded PHQ-2 Score 0 03/03/2024 [facility] of Occupat ional Health - Occupational Stress [...] Sex Assigned at Female 11/06/2021 3:47 PM REVIEW MANAGER Legal Sex Female 2:15 PM REVIEW MANAGER Gender Identity Female 04/07/2020 3:36 PM CDT Sexual Orientation Straight 04/07/2020 3: 36 PM CDT Last Filed Vital Signs Vital Sign Reading Time Taken Comments Blood Pressure 105/74 08/16/2024 3:15 PM CDT Pulse 87 08/16/2024 3:15 PM CDT Temperature 35.6 ??C (96 ??F) 08/16/2024 3:1 5 PM CDT Respiratory Rate 18 08/16/2024 3:15 PM CDT Oxygen Saturation 97% 05/01/2024 7:2 8 AM CDT Room air, sitting Inhaled Oxygen Concentration - - Weight 88 kg (194 lb) 08/16/2024 3:15 PM CDT shoes on Height 168.4 cm (5' 6.3) 08/16/2024 3: 15 PM CDT shoes on Body Mass Index 31.03 08/16/2024 3:15 PM CDT Plan of Treatment Not on file Medical Devices Implanted Type Area Director Of The [employer] Facility Device Identifier Shelf Expiration Date Model / Serial / Lot Implantable Port Implantable Port Chest Procedures Procedure Name Priority Date/Time Associated Diagnosis Comments HEMOGLOBIN A1C, B Routine 09/04/2024 10:08 AM CDT Diabetes Mellitus Type 2 With Diabetic Neuropathy (HCC) THYROID FUNCTION CASCADE, S Routine 08/16/2024 3:56 PM CDT Hypothyroidism Acquired ALBUMIN, RANDOM, U Routine 08/16/2024 3: 53 PM CDT Diabetes Mellitus Type 2 Hyperglycemia (HCC) HEMOGLOBIN A1C, B Routine 06/19/2024 2:0 7 PM CDT Diabetes Mellitus Type 2 Hyperglycemia (HCC) LIPID PANEL, S Routine 03/01/2024 9:32 AM CDT Hyperlipidemia Mixed BI BREAST DIAGNOSTIC BILATERAL WITH TOMOSYNTHESIS RAD - Routine (most inpatients and all outpatients) 08/18/2023 10:18 AM CDT Lump In Left Breast Subareolar BASIC METABOLIC PANEL, S/P Routine 07/29/2023 9:20 AM CDT Diabetes Mellitus Type 2 Hyperglycemia (HCC) Hypothyroidism Acquired COLONOSCOPY Routine 07/02/2017 from Last 3 Months or Most Recently Relevant to Health Maintenance Results * (ABNORMAL) Hemoglobin A1c (09/04/2024 10:08 AM CDT) Only the most recent of2 resultswithin the time period is included. Hemoglobin A1c, B 7.3(H) 4.2 - 5.6 [...] M.D. LAB BLOOD ADD-O N Final Result [facility] [address] [place] [address], [facility] in [place] [address] [place] [address] * Thyroid Function [facility] (08/16/2024 3:56 PM CDT) TSH, Sensitive 2.4 0.3 - 4.2 mIU/L 08/16/2024 6:14 PM CDT [facility] Blood (Blood, Venous) 08/16/2024 3:56 PM CDT 08/16/2024 5:41 PM CDT us Sea Hurd M.D. LAB BLOOD ADD-O N Final Result Performing Organization Address [facility] Co de Phone Number [facility] [address] [place] [address], [facility] in [place] [address] [place] [address] * Albumin, Random, Urine (08/16/2024 3:53 PM [...] M.D. LAB URINE ORDER RIOS Final Result Performing Organization Address [facility] Co de Phone Number [facility] [address] [place] [address], [place] [facility] in [place] [address] [address] * (ABNORMAL) Lipid Panel (03/01/2024 9:32 AM [...] 1:32 PM CDT Sea Hurd M.D. LAB BLOOD ADD-O N Final Result [facility] [address] [place] [address], [facility] in [place] [address] [place] [address] * (ABNORMAL) BI Breast Diagnostic Bilateral with [...] Biopsy Ultrasound-guided biopsy. ASSESSMENT: BI-RADS: 4: Suspicious. us Sea Hurd M.D. [place] [facility] Final Result * (ABNORMAL) Basic Metabolic Panel (07/29/2023 9:20 [...] 9:20 AM CDT 07/29/2023 11:04 AM CDT us Sea Hurd M.D. LAB BLOOD ADD-O N Final Result [facility] [address] [place] [address], [facility] in [place] [address] [place] [address] * Colonoscopy (07/02/2017) EXT Colonoscopy Abnormal - See Scanned Report for Details Normal - See Scanned Report for Details Comment:See care everywhere [facility] surgical history, repeat 3 years us Historical Provider GI PROCEDURE ORDERABLES Eivta l Result from Last 3 Months or Most Recently Relevant to Health Maintenance Insurance [facility] Advance Directives For more information, please contact: [phone] * Full Code (Latest Code Status on [...] Due to: Patient not available Care Teams Historic Preservationist Relationship Specialty Start Date End Date Sea Jha M.B.B.S., M.D. [address] [place], [place] [address] [phone] PCP - General Family Medicine 06/03/23
--- OUTSIDE RECORDS SUMMARY | 2024-09-06 14:22 | XMS_ITS | Encounter Summary ---
Author Organization [facility] Address [address] [place] [address] Care Team Providers Care Tobacco Stemmer Machine Name Role Phone Sea Jha M.D. 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 [address] [place] [address] Phone: tel: fax: [facility] Referral ID Status Reason Start Date Expiration Date Visits Requested Visits Authorized [id number] Authorized Specialty Services Required 07/05/2024 01/04/2026 1 1 Reason for Visit * Reason Comments Follow-up Medication and neuro brianna is bad in both hands and feet * Appointment Request (Routine) - Closed Specialty Diagnoses / Procedures Referred By Comfort ellsworth Referred To Contact Family Medicine Referral ID Status Reason Start Date Expiration Date Visits Re quested Visits Authorized [id number] Closed 06/23/2024 06/23/2025 1 1 Encounter Details Date Type Department Care Team (Latest Contact Info) Description 07/05/2024 3:30 PM CDT Office Visit Department of Family Medicine, [facility], in [place], [place] [address] [facility] [place] [phone] Sea Jha M.B.B.S., Isabella [address] [facility] [place] [phone] 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 More than 4 times per year 11/10/2021 Do you belong to any clubs o r organizations such as congregation groups, unions, fraternal or athletic groups, or [...] Answer Date Recorded PHQ-2 Score 0 03/03/2024 [facility] - Occupational [...] Sex Assigned at Female 11/06/2021 3:47 PM TIRE SHOP MECHANIC Legal Sex Female 2:15 PM TIRE SHOP MECHANIC Gender Identity Female 04/07/2020 3:36 PM CDT Sexual Orientation Straight 04/07/2020 3: 36 PM CDT documented as of this encounter Last Filed Vital Signs Vital Sign Reading Time Taken Comments Blood Pressure 129/89 07/05/2024 3:10 PM CDT Pulse 92 07/05/2024 3:10 PM CDT Temperature 36 ??C (96.8 ??F) 07/05/2024 3:10 PM CDT Respiratory Rate - - Oxygen Saturation - - Inhaled Oxygen Concentration - - Weight 86 kg (189 lb 9.5 oz) 07/05/2024 3:10 PM CDT Height 169 cm (5' 6.54) 07/05/2024 3:10 PM CDT Body Mass Index 30.11 07/05/2024 3:10 PM CDT documented in this encounter Progress Notes * Sea Jha M.B.B.S., Isabella - 07/05/2024 3:30 PM CDT SUBJECTIVE CHIEF COMPLAINT / REASON FOR VISIT Caroline Whtie is a 59 y.o. female who presents for evaluation of Follow-up (Medication and neuropathy is bad in both hands and feet). HISTORY OF PRESENT ILLNESS Caroline White is a 59-year-old female with a history of breast cancer status post double mastectomy. Patient developed peripheral neuropathy while on chemotherapy several months ago. She was started on gabapentin with little improvement in his symptoms. She is currently taking pregabalin 75 mg twice a day which has been helpful. However, in recent weeks, her symptoms have returned with burning pain at night, numbness in both feet and balance issues due to this numbness. This has interfered with her ability to walk and engagein day-to-day activities. The following portions of the patient's history were reviewed and updated as appropriate: allergies, current medications, family history, medical history, social history, surgical history, and problem list. REVIEW OF SYSTEMS Pertinent items are noted in HPI. OBJECTIVE VITAL SIGNS BP 129/89 (BP Location: Right arm, Patient Position: Sitting, Cuff Size: Regular) Pulse 92 Temp36 ??C Ht 169 cm Wt 86 kg BMI 30.11 kg/m?? Body mass index is 30.11 kg/m??. 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 Although she has a history of diabetes, symptoms began after chemotherapy for breast cancer. We will increase pregabalin 200 mg twice daily. I will also start her on capsaicin cream. I have placed a referral to Neurology for further evaluation as well. 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 [address] [place] [phone] PCP - General Family Medicine 06/03/23 documented as of this encounter
--- OUTSIDE RECORDS SUMMARY | 2024-09-06 14:22 | XMS_ITS | Encounter Summary ---
Author Organization [facility] Address [address] [place] [address] Care Team Providers Care City Dispatch Supervisor Name Role Phone Sea Jha M.D. Primary Care P elio Encounter Details Date Type Department Care Team (Latest Contact Info) Description 08/16/2024 3:50 PM CDT - 08/16/2024 11:59 PM CDT Hospital Encounter Department of Laboratory Medicine in [place], [place] [address] [place] [address] Sea Jha M.B.B.S., Isabella [address] [place] [phone] Hypothyroidism Acquired Discharge Disposition: Home or Self Care Social History Tobacco Use Types Packs/Day Years Used Date Smoking Tobacco: Every Day Cigarettes 0.3 3.9 Started: 10/06/2020 Smokeless Tobacco: Never Alcohol Use Standard Drinks/Week Comments Not Currently 0 (1 standard drink = 0.6 oz pur e alcohol) [facility] Utilities Answer Date Recorded In [...] How often do you attend chur or quaker services? More than 4 times per year 11/10/2021 Do you belong to any clubs o r organizations such as bahai groups, unions, fraternal or athletic groups, or [...] Answer Date Recorded PHQ-2 Score 0 03/03/2024 [facility] of Occupat ional Health - Occupational Stress [...] money to buy more. 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 I have a [facility] place to live 04/26/2024 Education Answer Date Recorded What is the highest level of school you have completed or the highest degree you have received? GED or equivalent Comments No Sex and Gender Information Value Date Recorded Sex Assigned at Female 11/06/2021 3:47 PM FUR CLIPPER Legal Sex Female 2:15 PM FUR CLIPPER Gender Identity Female 04/07/2020 3:36 PM CDT [...] glucose scanning reader (FreeStyle Veronika 14 Day [place]) miscIndications:Di abetes Mellitus Type 2 Hyperglycemia (HCC) [...] Procedure Name Priority Date/Time Associated Diagnosis Comments THYROID FUNCTION CASCADE, S Routine 08/16/2024 3:56 PM CDT Hypothyroidism Acquired documented in this encounter Results * Thyroid Function [place] (08/16/2024 3:56 PM CDT) TSH, Sensitive 2.4 0.3 - 4.2 mIU/L 08/16/2024 6:14 PM CDT OWAT Blood (Blood, Venous) 08/16/2024 3:56 PM CDT 08/16/2024 5:41 PM CDT Sea Hurd M.D. LAB BLOOD ADD-O N Final Result [facility] [address] [place] [address], [facility] OWAT [facility] [place] [address] [place] [address] documented in this encounter Visit Diagnoses Diagnosis Hypothyroidism Acquired documented in this encounter Additional Health Concerns Assessment Noted Time PHQ-9 Depression Total Score: 0 10/10/20 14 2:25 PM FUR CLIPPER documented as of this encounter Care Teams City Dispatch Supervisor Relationship Specialty Start Date End Date Sea Jha M.B.B.S., M.D. [address] [place] [phone] PCP - General Family Medicine 06/03/23 documented as of this encounter
--- OUTSIDE RECORDS SUMMARY | 2024-09-06 14:22 | XMS_ITS ---
Author Organization [facility] Address [address] [place] [address] Care Team Providers Care Certified Pesticide Applicator Name Role Phone Sea Jha M.D. Primary Care P marcelinoder Active Problems * This document contains information received from the source organization and may not represent a complete record from that organization. Problem Noted Date Diagnosed Date Malignant Neoplasm Of Breast Female Left 024 Cancer Staging:Pathologic stage from 09/08/2023:Stage IB(pT1c, pN0(sn), cM0, G3, ER-, PA-, HER2-) - Unsigned Obesity Body Mass Index [...] On Elapsed Days Session Dose Total Dose [id number] 04/29/2021 43 200 cGy 6,000 cGy Lifetime Dose Tracking * Chemical Lifetime Dose Automatic Entry Manual Entr y Radiation 2 mGy 2 mGy 0 mGy Fluoro Time 0.133 minutes 0.133 minutes 0 minutes Resolved Problems Problem Noted Date Diagnosed Date Resolved Date Thyroiditis Alice's 04/25/202110/23 Nodule Thyroid 04/24/2021 11/10/2021 Overview (04/24/2021): Added automatically from request for surgery [id number] Pain Shoulder Left 04/16/2020 1 Pulmonary Nodule Computed To mography Indeterminate 10/12/2019 02/05/2020 Nodule Pulmonary 09/25/2019 02/05/2020 Overview (09/25/2019): Added automatically from request for surgery [id number] Mass Adrenal 09/22/2019 04/09/2020 Overview (09/22/2019): Added automatically from request for surgery [id number] Gastroesophageal Reflux Dise ase With Esophagitis 08/14/2019 08/14/2019 Nodule Pulmonary Solitary 08/14/2019 Overview (08/20/2019): Per xray Jul 2019 / Right CT Chest Aug 17, 2019 suspicious nodule Right Depression Major Recurrent Mild 06/06/2012 08/14/2019 Overview (04/13/2017): Major depressive disorder, recurrent episode, Mild
--- OUTSIDE RECORDS SUMMARY | 2024-09-06 14:22 | XMS_ITS | Clinical Summary ---
Author Organization [facility] Address [address] [place] [address] Care Team Providers Care Geropsychologist Name Role Phone Sea Jha M.D. Primary Care P marcelinovijay Source Comments Patient records contain information from all sites at [facility]. For routine questions regarding patient records, call [phone] during business hours, M-F 8:00 AM - 5:00 PM Central Time. Record requests for emergency care only can be directed to [phone] at any time.[facility] Allergies Active Allergy Reactions Criticality Noted Date [...] tablet 11 Active flash glucose scanning reader (FreeStyle Veronika 14 Day [place]) miscIndications: Diabetes Mellitus Type 2 Hyperglycemia (HCC) [...] total) by mouth daily. 90 tablet 3 024 Active DULoxetine (Cymbalta) [address] capsuleIndicatio [...] from 09/08/2023:Stage IB(pT1c, pN0(sn), cM0, G3, ER-, SD-, HER2-) - Unsigned Obesity Body Mass Index [...] (04/24/2021): Added automatically from request for surgery [id number] Pain Shoulder Left 04/16/2020 1 Pulmonary Nodule Computed To mography Indeterminate 10/12/2019 02/05/2020 Nodule Pulmonary 09/25/2019 02/05/2020 Overview (09/25/2019): Added automatically from request for surgery [id number] Mass Adrenal 09/22/2019 04/09/2020 Overview (09/22/2019): Added automatically from request for surgery [id number] Gastroesophageal Reflux Dise ase With Esophagitis 08/14/2019 08/14/2019 Nodule Pulmonary Solitary 08/14/2019 Overview (08/20/2019): Per xray Jul 2019 / Right CT Chest Aug 17, 2019 suspicious nodule Right Depression Major Recurrent Mild 06/06/2012 08/14/2019 Overview (04/13/2017): Major depressive disorder, recurrent episode, Mild Encounters Date Type Department Care Team Description 09/04/2024 9:55 AM CDT - 09/04/2024 11:59 PM CDT Hospital Encounter Department of Laboratory Medicine [address] [phone] Sea Jha M.B.B.S., M.D. Diabetes Mellitus Type 2 With Diabetic Neuropathy (HCC) Discharge Disposition: Home or Self Care 09/04/2024 Clinical Communication Department of [facility], [address] [phone] Sea Jha M.B.B.S., M.D. Results (09/04/24 A1C results) 08/16/2024 3:50 PM CDT - 08/16/2024 11:59 PM CDT Hospital Encounter Department of Laboratory Medicine in [address] [phone] Sea Jha M.BYaniraB.SIsabella Doyle Hypothyroidism Acquired Discharge Disposition: Home or Self Care 08/16/2024 3:50 PM CDT - 08/16/2024 11:59 PM CDT Hospital Encounter Department of Laboratory Medicine [address] [address] Sea Jha M.B.BIsabella Quintanilla Diabetes Mellitus Type 2 Hyperglycemia (HCC) Discharge Disposition: Home or Self Care 08/16/2024 3:30 PM CDT Office Visit Department of [facility], [address] [address] Sea Jha M.B.B.SIsabella Doyle Hypothyroidism Acquired (Primary Dx); Diabetes Mellitus Type 2 With Diabetic Neuropathy (HCC); Hyperlipidemia Mixed 08/09/2024 Clinical Communication Department of Family Medicine, [facility], in [address] [place] [address] Sea Jha M.B.B.S., M.D. Med Question 07/05/2024 3:30 PM CDT Office Visit Department of Family [facility], [facility], [place] [address] [place] [address] Sea Jha M.B.B.S., M.D. 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 Diabetes Mellitus Type 2 Hyperglycemia (HCC) 06/26/2024 Orders Only Department of Laboratory Medicine in [address] [place] [address] Sea Jha M.B.B.S., M.D. Diabetes Mellitus Type 2 Hyperglycemia (HCC) (Primary Dx) 06/19/2024 1:59 PM CDT - 06/19/2024 11:59 PM CDT Hospital Encounter Department of Laboratory Medicine in [address] [place] [address] Sea Jha M.B.BIsabella Quintanilla Diabetes Mellitus Type 2 Hyperglycemia (HCC) Discharge Disposition: Home or Self Care 06/08/2024 Clinical Communication Department of Family Medicine, [facility], in [address] [place] [address] Sea Jha M.BYaniraBYaniraSIsabella Doyle Communication from Last 3 Months Immunizations Name Administration Dates Next Due Influenza TIV (IM) 08/18/2013 Influenza, Seasonal, Injectable 08/18/2013 PCV13 08/22/2019 PPSV23 04/09/2020 Tdap 05/12/2022, 2,02/11/2012, 008 influenza vaccine quad (FLUZONE/FLUARIX) (6 months and older)(PF) 09/10/2022,11/10/2021,08/14/2019, 017,09/25/2014 Family History Medical History Relation Name Comments Colon cancer Father Tim Guardado Diagnosis 1980 Diabetes Father Tim Guardado Lung cancer Maternal Grandfather Mrs. Padilla Coronary artery disease Mother Edle Guardado Heart attack Mother Edel Guardado Lung cancer Mother Edel Guardado Breast cancer Mother's Sister Alondra Breast cancer Sister 1 Nicolette Breast cancer Sister 2 Destinee Relation Name Status Comments Father Tim Guardado (Age 50) colon canc er / diabetes Maternal Grandfather Mrs. Padilla Mother Edel Guardado (Age 64) heart att ack Mother's Sister Alondra Sister 1 Nicolette Sister 2 Destinee Alive Social History Tobacco Use Types Packs/Day Years Used Date Smoking Tobacco: Every Day Cigarettes 0.3 3.9 Started: 10/06/2020 Smokeless Tobacco: Never Tobacco Cessation:Ready to Q uit: No; Counseling Given: Yes Alcohol Use Standard Drinks/Week Comments Not Currently 0 (1 standard drink = 0.6 oz pur e alcohol) [facility] [employer] Answer Date Recorded In the past 12 months has e [employer], gas, oil, or water [employer] threatened to shut off services in your [...] often do you attend chur ch or pentecostal services? More than 4 times per year 11/10/2021 Do you belong to any clubs o r organizations such as islam groups, unions, fraternal or athletic groups, or [...] Answer Date Recorded PHQ-2 Score 0 03/03/2024 [facility] of Occupat ional Health - [...] your living situation today? I have a [facility] place to live 04/26/2024 Education Answer Date Recorded What is the highest level of school you have completed or the highest degree you have received? GED or equivalent Comments No Sex and Gender Information Value Date Recorded Sex Assigned at Female 11/06/2021 3:47 PM FIELD TECHNICAL SPECIALIST Legal Sex Female 2:15 PM FIELD TECHNICAL SPECIALIST Gender Identity Female 04/07/2020 3:36 PM [...] 08/16/2024 3:15 PM CDT Plan of Treatment Health Maintenance Due Date Last Done Comments CT Colonography 1966 Cologuard 1966 Hepatitis C Screening 1966 Hepatitis B Vaccines (1 of 3 - 19+ 3-dose series) 1985 Zoster Vaccines (1 of 2) 1985 COVID-19 Vaccine (3 - Pfizer risk series) 10/15/2021 09/17/2021, 08/20/2021 Diabetic Office Visit with Foot Exam 05/31/2024 05/31/2023, 11/10/2021, 08/22/2019 Influenza Vaccine (#1) 2024 , 11/10/2021, 08/14/2019, Additional history exists Colonoscopy 03/02/2025 03/02/2022, 06/22, 07/02/2017 (Performed elsewhere) Colorectal Cancer Surveillance 03/02/2025 Hemoglobin A1C 03/05/2025 09/04/2024, 05/23, 03/01/2024, Additional history exists Creatinine Level (Kidney Function Test) 03/11/2025 03/11/2024, 07/29/2023, 08/31/2022, Additional history exists Pneumococcal vaccine (0-64 years) (3 of 3 - PPSV23 or PCV20) 04/09/2025 04/09/2020, 08/22/2019 Mammogram 04/18/2025 04/18/2024, 03/23, 08/18/2023, Additional history exists Dilated Eye Exam 07/17/2025 07/17/2024 (Per formed elsewhere) Office Visit for Blood Pressure Check / Re-check 08/16/2025 08/16/2024 Thyroid Stimulating Hormone (TSH) test for thyroid function 08/16/2025 08/16/2024, 03/01/2024, 11/16/2023, Additional history exists Tobacco Cessation counseling 08/16/2025 08/16/2024, 09/10/2022 Urine Albumin 08/16/2025 08/16/2024, 09/0 05/2023, 08/31/2022, Additional history exists Visit: Chronic Disease, age 18+ 08/16/2025 08/16/2024, 09/10/2022 Lipid (Cholesterol) Screening 03/01/2029 03/01/2024, 08/31/2022, 11/10/2021, Additional history exists DTaP,Tdap,and Td Vaccines (5 - Td or Tdap) 05/12/2032 05/12/2022, 03/06/2012, 02/11/2012, Additional history exists Depression Screening (Annual PHQ-2) Completed 03/03/2024, 03/03/2024 HPV Vaccines Aged Out No longer eligi ble based on patient's age to complete this topic Medical Devices Implanted Type Area Senior Gis Analyst Device Identifier Shelf Expiration Date Model / [...] ADD-O N Final Result Performing Organization Address City/[facility] Co de Phone Number [facility] [address] [place] [address], [place] OWAT [facility] [address] [place] [address] * Thyroid Function Prentiss (08/16/2024 3:56 PM CDT) TSH, Sensitive 2.4 0.3 - 4.2 mIU/L 08/16/2024 6:14 PM CDT OWAT Blood (Blood, Venous) 08/16/2024 3:56 PM CDT 08/16/2024 5:41 PM CDT Sea Hurd M.D. LAB BLOOD ADD-O N Final Result Performing Organization Address [facility] Co de Phone Number [facility] [address] [place] [address], [place] [facility] [address] [place] [address] * Albumin, Random, Urine (08/16/2024 3:53 PM [...] M.D. LAB URINE ORDER RIOS Final Result [facility] [address] [place] [address], [facility] OWAT [facility] [address] [place] [address] * (ABNORMAL) Lipid Panel (03/01/2024 9:32 AM [...] M.D. LAB BLOOD ADD-O N Final Result [facility] [address] [place] [address], [facility] OW[facility] [address] [place] [address] * (ABNORMAL) BI Breast Diagnostic Bilateral with [...] ASSESSMENT: BI-RADS: 4: Suspicious. Sea Hurd M.D. [facility] Final Result * (ABNORMAL) Basic Metabolic Panel [...] 11:04 AM CDT Sea Hurd M.D. LAB BLOOD ADD-O N Final Result [facility] [address] [place] [address], [facility] OWAT [facility] [address] [place] [address] * Colonoscopy (07/02/2017) EXT Colonoscopy Abnormal - See Scanned Report for Details Normal - See Scanned Report for Details Comment:See care everywhere [facility] surgical history, repeat 3 years Historical Provider GI PROCEDURE ORDERABLES Evita l Result from Last 3 Months or Most Recently Relevant to Health Maintenance Insurance [facility] ADRIANA GILLETTE [id number] Advance Directives For more information, please contact: [phone] * Full Code (Latest Code Status on [...] Due to: Patient not available Care Teams Geropsychologist Relationship Specialty Start Date End Date Sea Jha M.B.BYaniraSYanira, MCelina. [address] [place] [address] [place] [address] PCP - General Family Medicine 06/03/23
--- OUTSIDE RECORDS SUMMARY | 2024-09-06 14:22 | XMS_ITS | Encounter Summary ---
Author Organization [facility] Address [address] [place] [address] Care Team Providers Care Industrial Manufacturing Technician Name Role Phone Sea Jha M.D. Primary Care P elio Encounter Details Date Type Department Care Team (Late st Contact Info) Description 06/27/2024 Orders Only [facility] PCP [facility] MNT Sea Jha M.B.B.S., Isabella [address] [facility] [phone] Diabetes Mellitus Type 2 Hyperglycemia (HCC) Social History Tobacco Use Types Packs/Day Years Used Date Smoking Tobacco: Every Day Cigarettes 0.5 41.8 Started: 11/30/1982 Smokeless Tobacco: Never Alcohol Use Standard Drinks/Week Comments Not Currently 0 (1 standard drink = 0.6 oz pur e alcohol) [facility] Utilities Answer Date Recorded In the past 12 months has e [employer], gas, oil, or water [employer] threatened to shut off services in your [...] often do you attend chur ch or roman catholic services? More than 4 times per [...] Answer Date Recorded PHQ-2 Score 0 03/03/2024 [facility] of Occupat ional Health - [...] your living situation today? I have a [facility] place to live 04/26/2024 Education Answer Date Recorded What is the highest level of school you have completed or the highest degree you have received? GED or equivalent Comments No Sex and Gender Information Value Date Recorded Sex Assigned at Female 11/06/2021 3:47 PM SPECIMEN PREPARATION ASSISTANT Legal Sex Female 2:15 PM SPECIMEN PREPARATION ASSISTANT Gender Identity Female 04/07/2020 3:36 PM CDT Sexual Orientation Straight 04/07/2020 3: 36 PM CDT documented as of this encounter Plan of Treatment Not on file documented as of this encounter Results * Albumin, Random, Urine [...] 3:53 PM CDT 08/16/2024 5:40 PM CDT Sea Hurd M.D. LAB URINE ORDER RIOS Final Result [facility] [address] [place] [address], [facility] OWAT [facility] [place] [address] [place] [address] documented in this encounter Visit Diagnoses Diagnosis Diabetes Mellitus Type 2 Hyperglycemia (HCC) documented in this encounter Additional Health Concerns Assessment Noted Time PHQ-9 Depression Total Score: 0 10/10/20 14 2:25 PM SPECIMEN PREPARATION ASSISTANT documented as of this encounter Care Teams Industrial Manufacturing Technician Relationship Specialty Start Date End Date Sea Jha M.B.B.S., M.D. [address] [place] [phone] PCP - General Family Medicine 06/03/23 documented as of this encounter
--- OUTSIDE RECORDS SUMMARY | 2024-09-06 14:23 | XMS_ITS | Encounter Summary ---
Author Organization [facility] Address [address] [place] [address] Care Team Providers Care Laundry Washer Name Role Phone Sea Jha M.D. Primary Care P elio Encounter Details Date Type Department Care Team (Latest Contact Info) Description 06/19/2024 1:59 PM CDT - 06/19/2024 11:59 PM CDT Hospital Encounter Department of Laboratory Medicine in [place], [place] [address] [place] [address] Sea Jha M.B.B.S., MJohanna [address] [place] [address] Diabetes Mellitus Type 2 Hyperglycemia (HCC) Discharge Disposition: Home or Self Care Social History Tobacco Use Types Packs/Day Years Used Date Smoking Tobacco: Every Day Cigarettes 0.5 41.8 Started: 11/30/1982 Smokeless Tobacco: Never Alcohol Use Standard Drinks/Week Comments Not Currently 0 (1 standard drink = 0.6 oz pur e alcohol) [facility] Utilities Answer Date Recorded In the past 12 months has e [employer], gas, oil, or water [employer] threatened to shut off services in your [...] Answer Date Recorded PHQ-2 Score 0 03/03/2024 [facility] [place] of Occupat ional Health - Occupational Stress [...] your living situation today? I have a [facility] place to live 04/26/2024 Education Answer Date Recorded What is the highest level of school you have completed or the highest degree you have received? GED or equivalent Comments No Sex and Gender Information Value Date Recorded Sex Assigned at Female 11/06/2021 3:47 PM POLITICAL SCIENTIST Legal Sex Female 2:15 PM POLITICAL SCIENTIST Gender Identity Female 04/07/2020 3:36 PM CDT Sexual Orientation Straight 04/07/2020 3: 36 PM CDT documented as of this encounter Medications at Time of Discharge acetaminophen (TYLENOL) 500 mg tablet Take 2 tablets (1,000 mg total) by mouth every 6 (six) hours as needed for pain. 100 tablet 11 2 flash glucose scanning reader ([employer] Veronika [employer] Day [employer]inter) miscIndications:Di abetes Mellitus Type 2 Hyperglycemia (HCC) USE WITH VERONIKA SENSOR 1 each 2 flash glucose sensor kitIndications:Mimi betes Mellitus Type 2 Hyperglycemia (HCC) Change sensor [...] Wednesday and Wednesday. 90 tablet 3 4 dulaglutide (Trulicity) 3 mg/0.5 mL injectionIndicatio ns:Diabetes Mellitus Type 2 Hyperglycemia (HCC) Inject 0.75 mL (4.5 mg total) under the skin every 7 (seven) days. 6 mL 3 4 08/16/20 24 oxyCODONE-acetamin ophen (Percocet) 5-325 mg per tabletIndications: Prolonged Acute Pain/Traumatic Injury Take 1-2 tablets by mouth every 4 (four) hours as needed for pain Indication: Prolonged Acute Pain/Traumatic Injury. 15 tablet 4 07/05/20 24 pravastatin (PRAVACHOL) 40 mg tabletIndications: Hyperlipidemia Mixed Take 1 tablet (40 mg total) by mouth daily. 90 tablet 3 3 08/16/20 24 pregabalin (LYRICA) 75 mg capsuleIndications :Diabetes Mellitus Type 2 With Diabetic Neuropathy (HCC) Take 1 capsule (75 mg total) by mouth 2 (two) times a day. 180 capsule 3 4 07/05/20 24 Trulicity 4.5 mg/0.5 mL injection Inject 4.5 mg under the skin every 7 (seven) days. 4 08/16/20 24 documented as of this encounter Miscellaneous Notes * Result Encounter Note - Sea Jha M.B.B.S., M.Maureen. - 06/26/2024 1:20 PM CDT A1c shows [...] 5:52 PM CDT Sea Hurd M.D. LAB BLOOD ADD-O N Final Result [facility] [address] [address], [employer] [address] [facility] in [place] [address] [place] [address] documented in this encounter Visit Diagnoses Diagnosis Diabetes Mellitus Type 2 Hyperglycemia (HCC) documented in this encounter Additional Health Concerns Assessment Noted Time PHQ-9 Depression Total Score: 0 10/10/20 14 2:25 PM POLITICAL SCIENTIST documented as of this encounter Care Teams Laundry Washer Relationship Specialty Start Date End Date Sea Jha M.B.B.S., M.D. [address] [place] [id number] PCP - General Family Medicine 06/03/23 documented as of this encounter
--- OUTSIDE RECORDS SUMMARY | 2024-09-06 14:23 | XMS_ITS | Clinical Summary ---
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 Seborrheic keratosis 03/08/2012 012 Encounters Date Type Department Care Team Description 07/06/2024 Telephone [facility] [place] [facility] [place] [address] [facility] [address] [place] [id number] [facility] Questions from Last 3 Months Immunizations Name Administration Dates Next Due Influenza, IIV3 (Age >=3 years) 08/18/2013 Influenza, IIV4 08/22/2017,09/25/2014 Tdap 02/11/2012,08/13/2008 Family History Medical History Relation Name Comments Cancer-pancreatic Brother Cancer-prostate Brother Cancer-prostate Father Cancer-breast Maternal Aunt Cancer-breast Maternal Grandmother Cancer Mother lung Heart Disease Mother [place] Cancer-breast Sister 1 Cancer-breast Sister 2 Cancer-breast [...] 05/16/2024 10:07 AM CDT Plan of Treatment Upcoming Encounters Date Type Department Care Team (Late st Contact Info) Description 09/11/2024 1:00 PM CDT Office Visit [facility] [address] [facility] [address] [place] [address] Mily Mills PA [address] [place], [place] [id number] Health Maintenance Due Date Last Done Comments Pneumococcal series for age 6-64 (1 of 2 - PCV) 01/27/1972 HIV for age 15-65 1981 Hepatitis C screening for ag e 18-79 01/27/1984 Zoster (shingles) series for age 50+ (1 of 2) 01/27/2016 Depression screening for age 12+ 11/29/2018 11/29/2017, 08/18/2017, 12/22/2016, Additional history exists Tetanus booster 02/10/2022 02/11/2012, 04/22 (Postponed), 08/13/2008 Lipids for age 45-75 09/20/2022 09/20/2017, 02/11/2012, 04/23/2011 COVID-19 vaccine series ( season) 2024 09/17/2021, 08/20/2021 Influenza for age 50-64 07/23/2024 [...] Procedure Name Priority Date/Time Associated Diagnosis Comments XR MAMMO DYANA BILAT DIAG FLO 04/18/2024 8:47 AM CDT Malignant neoplasm of female breast, unspecified estrogen receptor status, unspecified laterality, unspecified site of breast (HC) COLONOSCOPY 03/02/2022 10:26 AM CDT LIPID PANEL Routine 09/20/2017 7:55 AM CDT Lipid screening from Last 3 Months or Most Recently Relevant to Health Maintenance Results * XR MAMMO DYANA DIAG BILAT (04/18/2024 [...] PM CDT As a result of the Cures Act, medical imaging exams and procedure [...] mammographic finding. Keshia Roque MD MAMMO * COLONOSCOPY (03/02/2022 10:26 AM CDT) 03/02/2022 [...] the bowel preparation was evaluated using theBBPS (Bowlegs Bowel Preparation Scale) with scores of: Right [...] - 199 mg/dL 09/20/2017 9:08 AM CDT [facility] TRIGLYCERIDES 466(H) <150 mg/dL 09/20/2017 9:08 AM CDT [facility] HDL CHOLESTEROL 43 >40 mg/dL 7 9:08 AM CDT [facility] NON-HDL CHOLESTEROL 256(H) <145 mg/dl 09/20/2017 9:08 AM CDT [facility] CHOL/HDL RATIO 6.95(H) <4.50 09/20/2017 9:08 AM CDT [facility] LDL CHOLESTEROL 7 9:08 AM CDT [facility] Comment:Invalid LDL when Tri g >400. PROVIDER ORDERED STATUS RANDOM 09/20/2017 9:08 AM CDT [facility] Blood BLOOD SPECIMEN / Unknown Venipuncture / Unknown 09/20/2017 7:55 AM CDT 09/20/2017 7:55 AM CDT Jaron Robert MD CHEMISTRY [address] [id number] from Last 3 Months or Most Recently [...] 7:27 AM 07/02/2017 11:44 AM Care Teams Labelling Machine Operator Relationship Specialty Start Date End Date Sea Jha MBBS PCP - General Family Practice 03/11/24 Elvira Puentes, RN [address] [facility] [address] [place] [address] Nurse Navigator - Oncology Registered Nurse 04/10/24 Keshia Roque MD [address] [facility] [address] [place] [address] Surgery - General 04/10/24
--- OUTSIDE RECORDS SUMMARY | 2024-09-06 14:23 | XMS_ITS | Encounter Summary ---
Author Organization [facility] Address [address] [place] [address] Care Team Providers Care Teradata Architect Name Role Phone Sea Jha M.D. Primary Care P [email or web address] Reason for Visit * Reason Onset Date Comments Communication 06/08/2024 Encounter Details Date Type Department Care Team (Late st Contact Info) Description 06/08/2024 Clinical Communication Department of Family Medicine, [facility], in [place], [place] [address] [place] [address] Sea Jha M.B.B.S., [place] [address] [place] [address] Communication Social History Tobacco Use Types Packs/Day Years Used Date Smoking Tobacco: Every Day Cigarettes 0.5 41.8 Started: 11/30/1982 Smokeless Tobacco: Never Alcohol Use Standard Drinks/Week Comments Not Currently 0 (1 standard drink = 0.6 oz pur e alcohol) [facility] Utilities Answer Date Recorded In the past 12 months has e [employer], gas, oil, or water company threatened to [...] How often do you attend chur or voodoo services? 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 I have a [facility] place to live 04/26/2024 Education Answer Date Recorded What is the highest level of school you have completed or the highest degree you have received? GED or equivalent Comments No Sex and Gender Information Value Date Recorded Sex Assigned at Female 11/06/2021 3:47 PM TEAM GUIDE Legal Sex Female 2:15 PM TEAM GUIDE Gender Identity Female 04/07/2020 3:36 PM CDT Sexual Orientation Straight 04/07/2020 3: 36 PM CDT documented as of this encounter Miscellaneous Notes * Telephone Encounter - Kajal Wood L.PYaniraNYanira - 06/23/2024 9:50 AM CDT SUBJECTIVE CHIEF [...] judgement * Telephone Encounter - Mikaela Lee C.MYaniraAYanira - 06/19/2024 4:47 PM CDT Need to [...] Total Score: 0 10/10/20 14 2:25 PM TEAM GUIDE documented as of this encounter Care Teams Teradata Architect Relationship Specialty Start Date End Date Sea Jha M.B.B.SYanira, M.Maureen. [address] [place] [address] [place] [address] PCP - General Family Medicine 06/03/23 documented as of this encounter
--- NOTE | 2024-09-06 15:00 | CRLHL7_ITS ---
For Patients: As a result of the Century Cures Act, medical imaging exams and procedure reports are released immediately into your electronic medical record. You may view this report before your referring provider. If you have questions, please contact your health care provider. Indication: Right lung adenocarcinoma. History of thyroid cancer and left breast cancer as well as benign adrenal mass status post adrenalectomy. Technique: Volumetric multidetector CT images of the chest, abdomen, and pelvis were obtained after the administration of intravenous contrast. 94 cc Isovue 370 low osmolar intravenous contrast Comparison: CT chest abdomen and pelvis March 28, [address] chest December 29, 2023 FINDINGS: CHEST Postoperative change of the thyroid status post left hemithyroidectomy is again seen. The thoracic inlet is unremarkable. The thoracic aorta is nonaneurysmal. There is no filling defect to suggest pulmonary embolus. Stable mediastinal lymph nodes and posttreatment changes of the right hilum with stable postoperative suture material, consolidation, air bronchograms and linear parenchymal scarring within the anterior right upper lobe. Unchanged emphysematous changes of the upper lobes with peripheral atelectasis and mild parenchymal scarring predominantly within the right karly thorax similar to previous exam. No evidence of new suspicious pulmonary nodule. Postoperative changes of the right ribs status post thoracotomy are appreciated. Otherwise, the thoracic osseous structures are grossly intact. The thoracic vertebral body heights are grossly maintained with stable sclerotic focus within the T6 vertebral body. Otherwise, no evidence of lytic or blastic focus. ABDOMEN AND PELVIS The liver demonstrates stable hypodensities within the medial left liver lobe too small to characterize. The spleen is normal in attenuation and size. There is prior cholecystectomy. There is no intrahepatic or common ductal dilatation. The stomach and duodenum are grossly unremarkable. The pancreas is normal in enhancement without significant atrophy. Prior right adrenalectomy. The left adrenal gland is within normal limits. The kidneys are preserved and corticomedullary differentiation. There is no hydronephrosis or radiopaque calculus. There is a moderate amount of intracolonic stool. There is minimal distal colonic diverticulosis. The appendix is unremarkable without significant inflammatory change. The abdominal aorta is nonaneurysmal with no significant atherosclerotic disease. There is prior hysterectomy. There is no pathologically enlarged epigastric, mesenteric, retroperitoneal, or pelvic sidewall lymph node. There is a small fat containing umbilical hernia. There is no free air or free fluid. The visualized osseous structures are grossly intact without evidence of displaced fracture, lytic or blastic lesion. The lumbar vertebral body heights are grossly maintained in satisfactory alignment without evidence of displaced fracture. Impression: 1. Stable posttreatment and postoperative changes of the right lower lobe and parahilar right lung from comparison without evidence metastatic changes. 2. No acute intra-abdominal abnormality is appreciated. 3. Stable prior left hemithyroidectomy, cholecystectomy, right adrenalectomy, and hysterectomy. 4. No evidence of metastatic changes or acute abnormalities within the chest, abdomen or pelvis. Please note that all CT scans at this facility use dose modulation, iterative reconstruction, and/or weight-based dosing when appropriate to reduce radiation dose to as low as reasonably achievable. Dictated by Moris Pizano MD @ 09/07/2024 8:38:03 AM (Electronically Signed)
== END 2024-09-06 14:20 | disposition home or self-care (01) ==
LOC: CT 14:19
PROVIDERS: PCP Family Medicine; Visit Provider Internal Medicine Hematology & Oncology
DX: C34.90 Malignant neoplasm of unspecified part of unspecified bronchus or lung (principal); C34.91 Malignant neoplasm of unspecified part of right bronchus or lung; C50.912 Malignant neoplasm of unspecified site of left female breast
CPT/HCPCS: 71260; 74177; Q9967

== ENCOUNTER 2025-02-22 08:49 | Outpatient (CLI) | payer BC, SELFPAY ==
--- NOTE | 2025-02-22 09:00 | CRLHL7_ITS ---
For Patients: As a result of the Century Cures Act, medical imaging exams and procedure reports are released immediately into your electronic medical record. You may view this report before your referring provider. If you have questions, please contact your health care provider. INDICATION: History of lung cancer, breast, and thyroid cancer. Comparison : CT scans of the chest, abdomen, and pelvis dated 06 September 2024 and 28 Mar 2024. PET-CT scan dated 03 September 2023. Technique : Abdominal MRI with T1 in and out of phase, T2, diffusion weighted, and progressively delayed post-contrast images. Intravenous gadolinium administered. Findings : No fatty infiltration of the liver. 6 mm cyst in segment 3 of the liver. No other focal abnormalities identified in the visualized portions of the liver, spleen, pancreas, left adrenal gland, and kidneys. No hydronephrosis. The right adrenal gland is absent. No adenopathy. Impression : 1. No metastatic disease identified in the abdomen. Dictated by Gio Walters MD @ 02/23/2025 9:40:18 AM (Electronically Signed)
== END 2025-02-22 08:50 | disposition home or self-care (01) ==
LOC: MRI 08:49
PROVIDERS: PCP Family Medicine; Visit Provider Physician Assistant
DX: C50.912 Malignant neoplasm of unspecified site of left female breast (principal); C73 Malignant neoplasm of thyroid gland; C34.91 Malignant neoplasm of unspecified part of right bronchus or lung; Z15.01 Genetic susceptibility to malignant neoplasm of breast; Z15.09 Genetic susceptibility to other malignant neoplasm; Z80.0 Family history of malignant neoplasm of digestive organs
CPT/HCPCS: 74183; A9575

== ENCOUNTER 2025-02-25 09:33 | Emergency (ER) | payer BC, SELFPAY ==
[2025-02-25] VITALS (14 sets, daily range): BP systolic 162; BP diastolic 89; PULSE 87; RESP 18; TEMP 36.1; O2SAT 85–98; BMI 30.7
--- NOTE | 2025-02-25 10:16 | CRLHL7_ITS ---
For Patients: As a result of the Century Cures Act, medical imaging exams and procedure reports are released immediately into your electronic medical record. You may view this report before your referring provider. If you have questions, please contact your health care provider. INDICATION: Abdominal pain, diarrhea, vomiting, history of breast, thyroid, and lung cancer. History of right adrenalectomy and cholecystectomy. COMPARISON: 02/22/2025 MRI of the abdomen TECHNIQUE: CT of the abdomen and pelvis with intravenous contrast (93 milliliters Isovue 370). FINDINGS: Lung bases: No pleural effusion. Partially imaged posttreatment changes at the right lung including right perihilar posttreatment related opacification which is grossly similar since 09/06/2024, but not fully characterized on this CT of the abdomen. Liver: Smooth hepatic contour. There are a few small hepatic cysts and subcentimeter hypoattenuating hepatic foci which are too small to characterize, but statistically likely to represent cysts. Gallbladder and biliary tree: Status post cholecystectomy. Mild fullness of the extrahepatic and central intrahepatic biliary tree is probably within normal limits for the post cholecystectomy state. Spleen: No splenomegaly. Pancreas: Normal. Adrenal glands: Status post partial resection of the right adrenal gland. Unremarkable left adrenal. Kidneys and ureters: No hydroureteronephrosis. No suspicious renal lesions are identified. Bladder: Unremarkable CT appearance. Visualized reproductive organs: Surgically absent uterus. Gastrointestinal tract: There is a long segment of distal ileum mostly in the right lower abdominal quadrant which demonstrates prominent wall thickening and mesenteric edema without an associated transition point (2/111). There is colonic diverticulosis. Normal appendix. Peritoneal cavity: There is trace free fluid mostly within the pelvis. There is a soft tissue and fat attenuation left paramidline presacral lesion measuring 3.3 x 2.7 centimeters which is unchanged since 09/06/2024 and only mildly increased in size since at least as far back as a 11/12/2020 PET-CT when it measured 2.8 x 2.1 centimeters (2/127). Lymph nodes: No enlarged abdominal or pelvic lymph nodes by CT size criteria. Vessels: There are atherosclerotic vascular changes. There is ectasia of the infrarenal abdominal aorta measuring up to 2.4 centimeters in the axial plane. Abdominal and pelvic wall: Tiny fat containing umbilical hernia. There is postoperative scarring in the abdominal wall. A fat containing 12 millimeter lesion within the right lateral abdominal wall musculature is compatible with a lipoma or small hernia (). Partially imaged postoperative changes of bilateral mastectomy. Bones: There are osseous degenerative changes. IMPRESSION: 1. Long segment of distal ileum mostly in the right lower abdominal quadrant with prominent wall thickening and associated mesenteric edema compatible with a nonspecific enteritis. 2. A nonspecific soft tissue and fat attenuation left paramidline presacral lesion measuring 3.3 centimeters is unchanged since 09/06/2024 and only mildly increased in size since at least as far back as 11/12/2020, possibly representing fat necrosis and/or postoperative change. Recommend continued attention on follow-up. 3. Please see above for several additional chronic and incidental findings. Please note that all CT scans at this facility use dose modulation, iterative reconstruction, and/or weight-based dosing when appropriate to reduce radiation dose to as low as reasonably achievable. Dictated by Mika Scott MD @ 02/25/2025 11:48:14 AM (Electronically Signed)
--- NOTE | 2025-02-25 10:23 | ED.GENADULT ---
HPI - General Adult General Chief complaint: Abdominal Pain Stated complaint: severe abdominal pain, vomiting Time Seen by Provider: 02/25/25 09:37 History of Present Illness HPI narrative: 60 year white female presents with significant abdominal pain nausea vomiting diarrhea. She has had this for 48 hours. Seems to be getting worse today where she had trouble walking without pain in her belly. She has as she is status post cholecystectomy. She has had an adrenalectomy. She has also had thyroid cancer breast cancer and lung cancer. She has had partial lobectomy of the right lung and thyroidectomy and adrenalectomy as mention. She has had bilateral breast removal for breast cancer as well. She had a recent MRI that looks unremarkable. This was of her abdomen and pelvis. She reports no chest pain, breathing problem, fevers chills or rigors, no dysuria frequency or hematuria. She has had loose stool and vomiting as mention and now abdominal pain over the last mostly 24 hours. She does for reports that it is diffuse abdominal pain not localized. Again she is status post cholecystectomy. She still has her appendix. Patient recently returned by plane within the last week from her wintering in the [facility]. Related Data Home Medications ?Medication ?Instructions ?Recorded ?Confirmed atorvastatin 40 mg tablet 40 mg PO DAILY 06/05/22 02/25/25 acetaminophen 500 mg capsule 1,000 mg PO Q6H PRN 06/11/22 02/25/25 levothyroxine 150 mcg capsule 150 mcg PO DAILY 03/09/23 02/25/25 dulaglutide 0.75 mg/0.5 mL 4.5 mg subcut QWEEK 09/02/23 02/25/25 subcutaneous pen injector (Trulicity) levothyroxine 25 mcg capsule 25 mcg PO .COMPLEX 03/06/24 02/25/25 duloxetine 20 mg capsule,delayed 20 mg PO BID 09/07/24 02/25/25 release (Cymbalta) Previous Rx's ?Medication ?Instructions ?Recorded hydrocodone 5 mg-acetaminophen 325 1 tab PO Q4-6H PRN pain #14 tabs 02/25/25 mg tablet Allergies Allergy/AdvReac Type Severity Reaction Status Date / Time morphine AdvReac Intermediate Verified 02/25/25 11:04 oxycodone AdvReac Intermediate Vomiting Verified 02/25/25 11:04 Review of Systems Status of ROS: Reports: 6 or more systems reviewed and unremarkable except as noted in History and below [facility] Medical History Family history of pancreatic cancer ?Z80.0 - Family history of malignant neoplasm of digestive organs (ICD-10) Breast cancer, left ?C50.912 - Malignant neoplasm of unspecified site of left female breast (ICD-10) Tobacco use ?Z72.0 - Tobacco use (ICD-10) Adenoma of right adrenal gland ?D35.01 - Benign neoplasm of right adrenal gland (ICD-10) Central venous catheter in place ?Z78.9 - Other specified health status (ICD-10) HTN (hypertension) ?I10 - Essential (primary) hypertension (ICD-10) Recurrent adenocarcinoma of right lung (~02/2021) ?C34.91 - Malignant neoplasm of unspecified part of right bronchus or lung (ICD-10) Adenocarcinoma of lung (~09/2019) ?C34.90 - Malignant neoplasm of unspecified part of unspecified bronchus or lung (ICD-10) Hypothyroidism ?E03.9 - Hypothyroidism, unspecified (ICD-10) Papillary thyroid carcinoma ?C73 - Malignant neoplasm of thyroid gland (ICD-10) Surgical History History of total adrenalectomy ?E89.6 - Postprocedural adrenocortical (-medullary) hypofunction (ICD-10) Status post lung surgery ?Z98.890 - Other specified postprocedural states (ICD-10) S/P cholecystectomy ?Z90.49 - Acquired absence of other specified parts of digestive tract (ICD-10) S/P hysterectomy ?Z90.710 - Acquired absence of both cervix and uterus (ICD-10) S/P partial thyroidectomy ?E89.0 - Postprocedural hypothyroidism (ICD-10) Social History Narrative: Ms. White just celebrated the wedding of her youngest son. She continues to smoke, but only one cigarette BID, which is helping her control her cravings and is significantly reduced from smoking frequency prior to cancer diagnosis. Smoking Status: Current every day smoker Do you use any of these nicotine containing products: None How often do you have a drink containing alcohol: never AUDIT-C Alcohol total score: 0 Non-prescribed substance use: denies use service: No Exam Narrative: Exam Narrative: Objective: Vital signs show elevated blood pressure, afebrile, good O2 sat 97% Alert orient x3, no scleral icterus no facial asymmetry Neck is supple Chest clear Heart rhythm regular heart murmur Abdomen obese mildly tender diffusely specifically in the epigastrium and right upper quadrant. Patient also has some right mid quadrant lateral to the umbilicus tenderness. No marked lower quadrant tenderness. No palpable masses but patient does have some mild guarding on the right side of her abdomen primarily but is diffusely tender. Does seem to have rebound tenderness in the right side of her abdomen. Extremities normal neurologic nonfocal good peripheral perfusion noted. Const: Vital Signs, click to edit/add: Vital Signs - 24 hr 02/25/25 09:40 02/25/25 10:49 02/25/25 11:03 Temperature 97 F L Pulse Rate [Right Pulse Oximeter] 87 Respiratory Rate 18 Blood Pressure [Ri ght Upper Arm] 162/89 H Pulse Oximetry 97 98 90 Oxygen Delivery Me thod Room Air 02/25/25 11:04 02/25/25 11:10 02/25/25 11:20 Temperature Pulse Rate [Right Pulse Oximeter] Respiratory Rate Blood Pressure [Ri ght Upper Arm] Pulse Oximetry 89 87 L 85 L Oxygen Delivery Me thod 02/25/25 11:30 02/25/25 11:38 02/25/25 11:40 Temperature Pulse Rate [Right Pulse Oximeter] Respiratory Rate Blood Pressure [Ri ght Upper Arm] Pulse Oximetry 86 L 87 L 96 Oxygen Delivery Me thod 02/25/25 11:50 02/25/25 12:00 02/25/25 12:02 Temperature Pulse Rate [Right Pulse Oximeter] Respiratory Rate Blood Pressure [Ri ght Upper Arm] Pulse Oximetry 97 95 95 Oxygen Delivery Me thod 02/25/25 12:10 02/25/25 12:20 Temperature Pulse Rate [Right Pulse Oximeter] Respiratory Rate Blood Pressure [Ri ght Upper Arm] Pulse Oximetry 96 95 Oxygen Delivery Me thod Course Vital Signs Vital signs: Initial Vital Signs Temperature 97 F L 02/25/25 09:40 Temperature Source Temporal Artery Scan 02/25/25 09:40 Pulse Rate 87 02/25/25 09:40 Pulse Rhythm Regular 02/25/25 09:40 Pulse Strength 3+ Normal 02/25/25 09:40 Respiratory Rate 18 02/25/25 09:40 Blood Pressure 162/89 H 02/25/25 09:40 Blood Pressure Mean 113 H 02/25/25 09:40 Blood Pressure Position Sitting 02/25/25 09:40 Pulse Oximetry 97 02/25/25 09:40 Oxygen Delivery Method Room Air 02/25/25 09:40 Vital Signs Temperature 97 F L 02/25/25 09:40 Pulse Rate 87 02/25/25 09:40 Respiratory Rate 18 02/25/25 09:40 Blood Pressure 162/89 H 02/25/25 09:40 Pulse Oximetry 97 02/25/25 09:40 Oxygen Delivery Method Room Air 02/25/25 09:40 Temperature 97 F L 02/25/25 09:40 Pulse Rate 87 02/25/25 09:40 Respiratory Rate 18 02/25/25 09:40 Blood Pressure 162/89 H 02/25/25 09:40 Pulse Oximetry 95 02/25/25 12:20 Oxygen Delivery Method Room Air 02/25/25 09:40 Medications Administered Medications: Discontinued Medications Generic Name Dose Route Start Last Admin Trade Name Freq PRN Reason Stop Dose Admin Hydromorphone HCl 1 mg 02/25/25 10:16 02/25/25 10:37 Hydromorphone 0.5 Mg/0.5 Ml Inj IVP 02/25/25 10:17 1 mg ONCE ONE Administration Hydromorphone HCl 1 mg 02/25/25 11:49 02/25/25 11:55 Hydromorphone 0.5 Mg/0.5 Ml Inj IVP 02/25/25 11:50 1 mg ONCE ONE Administration Sodium Chloride 1,000 mls @ 6,000 mls/hr 02/25/25 10:30 02/25/25 10:38 0.9 % Sodium Chloride 1000 Ml IV 02/25/25 10:39 6,000 mls/hr .Q10M EMMY Administration Ondansetron HCl 4 mg 02/25/25 10:16 02/25/25 10:38 Ondansetron 2 Mg/Ml Inj IVP 02/25/25 10:17 4 mg ONCE ONE Administration Medical Decision Making MDM Narrative Medical decision making narrative: [age] year white female with a history of thyroid, breast, adrenal, lung cancer. Recent negative MRI of the abdomen. Patient this time has acute nausea vomiting diarrhea and abdominal pain issue over the last 48 hours. She reports that is worse today. Has had a cholecystectomy. Still has her appendix. I think to do CT scanning with IV contrast to rule out colitis, appendicitis, intra-abdominal pathology would be appropriate. Would also give IV fluid, IV Dilaudid and Zofran. Check electrolytes and labs. Disposition pending findings above. Differential be broad including the above-mentioned issues as well as others. Addendum 12:23 p.m.: The patient has a area of nonspecific enteritis and some small bowel terminal ileum irritation. This could be related to her diarrhea illness she had on returning from the [facility]. At this point she has not had bloody diarrhea her pain is controlled with IV medicine. She would like to try going home. I think light diet, [place] as needed. Recheck with regular doctor next 2-3 days, if she fails and has increasing pain she return to the ED for admission. Lab Data Labs: Lab Results 02/25/25 Range/Units 10:10 WBC 12.41 H (4.50-11.00) K/uL RBC 5.38 H (4.00-5.20) m/uL Hgb 17.3 H (12.0-16.0) gm/dL Hct 51.7 H (33.0-51.0) % MCV 96 (80-100) fL MCH 32 (26-34) pg MCHC 34 (32-36) gm/dL RDW Coeff of Sara 12.8 (11.5-15.5) % Plt Count 283 (140-440) K/uL Neut % (Auto) 67.7 (42.0-72.0) % Lymph % (Auto) 23.4 (20-44) % Jenkins % (Auto) 6.5 (0.0-11.0) % Eos % (Auto) 2.1 (0.0-7.0) % Baso % (Auto) 0.1 (0.0-3.0) % Neut # (Auto) 8.40 H (1.7-7.0) K/uL Lymph # (Auto) 2.90 (0.90-2.90) K/uL Jenkins # (Auto) 0.80 (0.00-0.90) K/UL Eos # (Auto) 0.30 (0.00-0.50) K/uL Baso # (Auto) 0.00 (0.00-0.30) K/uL Abs Immat Gran (auto) 0.00 (0.00-0.30) K/uL Imm/Tot Granulo (auto) 0.2 % Sodium 137 (135-149) mmol/L Potassium 3.8 (3.6-5.1) mmol/L Chloride 107 (96-114) mmol/L Carbon Dioxide 20 (20-32) mmol/L Anion Gap 10 (7-15) mEq/L BUN 10 (7-30) mg/dL Creatinine 0.8 (0.5-1.5) mg/dL Estimated Creat Clear 70.88 Estimated GFR 85 ml/min Glucose 177 H (60-115) mg/dL Calcium 9.1 (8.4-10.6) mg/dL Total Bilirubin 1.2 (0.1-1.5) mg/dL Direct Bilirubin 0.4 (0.0-0.5) mg/dL AST 95 H (12-35) U/L ALT 128 H (4-35) U/L Alkaline Phosphatase 129 (40-150) U/L Total Protein 7.3 (6.0-8.3) g/dL Albumin 4.3 (3.3-5.0) g/dL Amylase 70 (18-89) U/L Discharge Plan Discharge Clinical Impression: Abdominal pain, Diarrhea, Enteritis Patient Disposition: Home w/ Parent or Adult Condition: Improved Additional Instructions: Light diet, [place] as needed for pain. Fluids. Return if recurrent pain or problem. Follow-up with regular doctor next 2-3 days. Activity Level: Light activity Discharge Diet: Clear Liquid Prescriptions: New hydrocodone-acetaminophen 5-325 mg tablet 1 tab PO Q4-6H PRN (Reason: pain) Qty: 14 0RF No Action acetaminophen 500 mg capsule 1,000 mg PO Q6H PRN Trulicity 0.75 mg/0.5 mL pen injector 4.5 mg subcut QWEEK levothyroxine 150 mcg capsule 150 mcg PO DAILY duloxetine [Cymbalta] 20 mg capsule,delayed release(DR/EC) 20 mg PO BID levothyroxine 25 mcg capsule 25 mcg PO .COMPLEX Rx Instructions: wednesday and wednesday. atorvastatin 40 mg tablet 40 mg PO DAILY Follow Up/Referrals: Sea Jha MD [Primary Care Provider] - Stand Alone Forms: [employer] Info Instructions
[2025-02-25 10:26] LABS: Basophils Percent Auto 0.1 % (0.0-3.0); Eosinophils Percent Auto 2.1 % (0.0-7.0); Hematocrit 51.7 % (33.0-51.0); Hemoglobin* 17.3 gm/dL (12.0-16.0); Immature Granulocytes Pct Auto 0.2 %; Lymphocytes Percent Auto 23.4 % (20-44); Mean Corpuscular HGB Conc 34 gm/dL (32-36); Mean Corpuscular Hemoglobin 32 pg (26-34); Mean Corpuscular Volume 96 fL (80-100); Monocytes Percent Auto 6.5 % (0.0-11.0); Neutrophils Percent Auto 67.7 % (42.0-72.0); Platelet Count* 283 K/uL (140-440); RDW Coefficient of Variation % 12.8 % (11.5-15.5); Red Blood Count 5.38 m/uL (4.00-5.20); White Blood Count* 12.41 K/uL (4.50-11.00)
[2025-02-25] MEDS: HYDROmorphone 0.5 mg/0.5 ml inj 1 MG IVP ×2 (10:37→11:55)
[2025-02-25] MEDS: 0.9 % SODIUM CHLORIDE 1000 ml 1,000 ML 6000 ML IV (10:38)
[2025-02-25] MEDS: ONDANSETRON 2 MG/ML inj 4 MG IVP (10:38)
[2025-02-25 10:40] LABS: Slide Review Reflex No
[2025-02-25 10:42] LABS: Albumin* 4.3 g/dL (3.3-5.0); Chloride* 107 mmol/L (96-114); Potassium* 3.8 mmol/L (3.6-5.1); Sodium* 137 mmol/L (135-149)
[2025-02-25 10:45] LABS: Alanine Aminotransferase* 128 U/L (4-35); Alkaline Phosphatase* 129 U/L (40-150); Amylase* 70 U/L (18-89); Anion Gap 10 mEq/L (7-15); Aspartate Amino Transferase* 95 U/L (12-35); Bilirubin Direct* 0.4 mg/dL (0.0-0.5); Bilirubin Total* 1.2 mg/dL (0.1-1.5); Blood Urea Nitrogen* 10 mg/dL (7-30); Calcium* 9.1 mg/dL (8.4-10.6); Carbon Dioxide* 20 mmol/L (20-32); Creatinine* 0.8 mg/dL (0.5-1.5); Est. Creatinine Clearance* 70.88; Estimated Glomerular Filt Rate 85 ml/min; Glucose* 177 mg/dL (60-115); Total Protein* 7.3 g/dL (6.0-8.3)
== END 2025-02-25 12:42 | disposition home or self-care (01) ==
PROVIDERS: Emergency Provider Family Medicine; PCP Family Medicine
DX: K52.9 Noninfective gastroenteritis and colitis, unspecified (principal); R10.9 Unspecified abdominal pain
CPT/HCPCS: 36415; 74177; 80048; 80076; 82150; 85025; 94761; 96374; 96375; 96376; 99284; 99285; J1171; J2405; J7030; Q9967

== ENCOUNTER 2025-03-05 12:45 | Outpatient (RCR) | payer BC, SELFPAY ==
[2025-03-06 01:38] LABS: Anion Gap 8 mEq/L (7-15); Blood Urea Nitrogen* 12 mg/dL (7-30); Carbon Dioxide* 27 mmol/L (20-32); Chloride* 105 mmol/L (96-114); Creatinine* 0.9 mg/dL (0.5-1.5); Est. Creatinine Clearance* 63.01; Estimated Glomerular Filt Rate 74 ml/min; Potassium* 4.6 mmol/L (3.6-5.1); Sodium* 140 mmol/L (135-149)
[2025-03-06 01:39] LABS: Alanine Aminotransferase* 20 U/L (4-35); Albumin* 4.1 g/dL (3.3-5.0); Alkaline Phosphatase* 70 U/L (40-150); Aspartate Amino Transferase* 24 U/L (12-35); Bilirubin Total* 0.6 mg/dL (0.1-1.5); Calcium* 9.4 mg/dL (8.4-10.6); Glucose* 121 mg/dL (60-115); Total Protein* 6.7 g/dL (6.0-8.3)
[2025-03-06 01:40] LABS: Hematocrit 50.1 % (33.0-51.0); Hemoglobin* 16.1 gm/dL (12.0-16.0); Mean Corpuscular HGB Conc 32 gm/dL (32-36); Mean Corpuscular Hemoglobin 32 pg (26-34); Mean Corpuscular Volume 100 fL (80-100); Platelet Count* 302 K/uL (140-440); Red Blood Count 5.02 m/uL (4.00-5.20); White Blood Count* 10.32 K/uL (4.50-11.00)
[2025-03-06 01:41] LABS: Basophils Percent Auto 0.4 % (0.0-3.0); Eosinophils Percent Auto 2.4 % (0.0-7.0); Immature Granulocytes Pct Auto 0.3 %; Lymphocytes Percent Auto 37.3 % (20-44); Monocytes Percent Auto 6.9 % (0.0-11.0); Neutrophils Percent Auto 52.7 % (42.0-72.0); Slide Review Reflex No
== END 2025-03-06 23:59 | disposition home or self-care (01) ==
LOC: CCIC 12:45
PROVIDERS: PCP Family Medicine; Referring Provider Family Medicine; Visit Provider Physician Assistant
DX: C50.912 Malignant neoplasm of unspecified site of left female breast (principal); Z17.0 Estrogen receptor positive status [ER+]; C34.91 Malignant neoplasm of unspecified part of right bronchus or lung; C73 Malignant neoplasm of thyroid gland; E03.9 Hypothyroidism, unspecified; D75.1 Secondary polycythemia; Z72.0 Tobacco use; Z90.13 Acquired absence of bilateral breasts and nipples
CPT/HCPCS: 36415; 80053; 84443; 85025; 99215; G0463

== ENCOUNTER 2025-08-20 09:37 | Outpatient (CLI) | payer BC, SELFPAY ==
--- NOTE | 2025-08-20 10:00 | CRLHL7_ITS ---
For Patients: As a result of the Century Cures Act, medical imaging exams and procedure reports are released immediately into your electronic medical record. You may view this report before your referring provider. If you have questions, please contact your health care provider. Indication: LUNG, THYROID, BREAST CANCER Technique: CT Chest/Abd/Pelvis W/ 96CC [id number] intravenous contrast Please note that all CT scans at this facility use dose modulation, iterative reconstruction, and/or weight-based dosing when appropriate to reduce radiation dose to as low as reasonably achievable. Comparison: 02/25/2025, 09/06/2024 Findings: In the chest, postop changes of left thyroidectomy are present. Stable nodular densities along the right hemithorax. Unchanged mediastinal lymph nodes. Posttreatment changes to the right lung including partial pneumonectomy. Emphysema. No acute infiltrate or edema. No effusion. Stable sclerotic density within the midthoracic spine. No fracture. In the abdomen, postoperative changes of right adrenal resection are again noted. Left adrenal gland is normal. Kidneys are within normal limits. Normal spleen. Pancreas is normal. Mild hepatic steatosis. No suspicious intrahepatic mass. Gallbladder absent. No biliary obstruction. Atherosclerotic changes. Stable small cyst within the left hepatic lobe. In the pelvis, the bladder is normal. The uterus is absent. No adnexal mass. Sigmoid diverticulosis. No diverticulitis. Omental nodules on the left are similar. Normal appendix. No bowel obstruction or free air. No free fluid or abscess. Small fat filled periumbilical hernia. Stable mixed density structure within the deep posterior pelvis. Spurring at both hips. Impression: Stable posttreatment changes to the right lung. Stable a sub cm cyst within the liver. No suspicious intrahepatic mass. No enlarged lymph nodes within the chest, abdomen or pelvis. Status post hysterectomy with stable fat necrosis in the deep pelvis posteriorly. Status post right adrenalectomy. Normal left adrenal gland. Resolution of the previously noted ileitis. Sigmoid diverticulosis. No diverticulitis. Status post left thyroidectomy. No thoracic inlet mass. Stable nodules along the right lateral lower thorax and within the left-sided omentum. Please note that all CT scans at this facility use dose modulation, iterative reconstruction, and/or weight-based dosing when appropriate to reduce radiation dose to as low as reasonably achievable. Dictated by Nael Solares MD @ 08/20/2025 12:28:58 PM (Electronically Signed)
== END 2025-08-20 09:38 | disposition home or self-care (01) ==
LOC: CT 09:37
PROVIDERS: PCP Family Medicine; Visit Provider Physician Assistant
DX: C34.90 Malignant neoplasm of unspecified part of unspecified bronchus or lung (principal); C73 Malignant neoplasm of thyroid gland; C50.912 Malignant neoplasm of unspecified site of left female breast; Z15.01 Genetic susceptibility to malignant neoplasm of breast; Z15.09 Genetic susceptibility to other malignant neoplasm
CPT/HCPCS: 71260; 74177; Q9967